=== PATIENT | female | born 1980 | race Caucasian/White ===

== ENCOUNTER 2019-11-12 14:14 | Emergency (ER) | payer MEDICARE, MEDICAID, SELFPAY ==
--- NOTE | 2019-11-12 14:46 | US_ITS ---
WS: [id number] LIMITED OBSTETRICAL ULTRASOUND HISTORY: abd pain COMPARISON: 09/19/2019 Presentation: Variable. Cervix: Closed and normal length. Placenta: Posterior, no previa or abruption. There is a bandlike structure necrosis superior LEFT ges tational sac. No entrapment of limbs at this time. Grade: 0 HEART: FHR of 157 BPM. measurements: BPD = 4.1 cm = 18w3d HC = 15.4 cm = 18w3d AC = 13.0 cm = 18w4d FL = 2.8 cm = 18w4d EFW: 246 g; AGA by ultrasound: 18w4d ANTHONY by ultrasound: 04/10/2020 US/US OB <=14 wk fetus w transvag IMPRESSION: 1. Single intrauterine gestation of 18 weeks 4 days with an EDC of 04/10/2020. 2. Appropriate growth since 09/19/2019. 3. Amniotic band in the superior LEFT gestational sac.
[2019-11-12 14:48] VITALS: BP 123/63; PULSE 80; RESP 18; TEMP 37.2; O2SAT 97; BMI 24.1
[2019-11-12 15:37] LABS: Add Urine Microscopic? NO
[2019-11-12 15:52] LABS: Bilirubin Urine Neg (NEGATIVE); Blood Urine Neg (Negative); Glucose Urine UA Norm (Normal); Ketones Urine Negative (Negative); Leukocyte Esterase Urine Negative (Negative); Nitrate Urine Negative (Negative); Protein Urine Neg (Negative); Specific Gravity, Urine 1.005 (1.005-1.030); Urine Appearance Clear (CLEAR); Urine Color Straw (Yellow); Urobilinogen Urine Norm (Negative)
--- NOTE | 2019-11-12 16:27 | ED_ITS ---
Entered by Rob Hardy, acting as scribe for Nov 12, 2019 14:14 HPI - Abdominal Pain General: Chief Complaint: Abdominal Pain Stated Complaint: 18 weeks preg lost one twin already. Time Seen by Provider: 11/12/19 16:27 History of Present Illness: HPI narrative: 39 yo female presents with abd pain. Pt states that she is 18 weeks , she has already lost 1 of the twins. Pt states that she had a cervical biopsy done 1 week ago, miscarried one of the twins 2 days ago. Pt states that she feels constipated. Pt states that she is scared to use the restroom for fear of miscarrying the other baby. Pt states that her OBGYN sent the baby off for pathology. Pt denies vaginal bleeding. Pt states that she tried to have a bowel movement last night and noticed a lot of white mucous. MD elicited complaint: abdominal pain Associated Symptoms: Denies chills, coffee ground emesis, constipation, GI cramping, diarrhea, dysuria, fever(s), heartburn, hematochezia, hematuria, hematemesis, melena, nausea, syncope and vomiting Review of Systems Const: Denies: fever, chills, body aches, fatigue, malaise or night sweats Eyes: Denies: change in vision or blurry vision ENMT: Denies: throat pain, oral sores/lesions, dental pain, nasal discharge or nasal congestion Card: Denies: chest pain, palpitations, irregular heart rhythm, edema, syncope, shortness of breath on exertion, shortness of breath when lying down or leg pain with exertion Resp: Denies: shortness of breath, productive cough, non-productive cough or wheezing GI: Reports: abdominal pain; Denies: nausea, vomiting, vomiting blood, coffee grounds in vomit, difficulty swallowing, heartburn/indigestion, diarrhea, constipation, cramping, blood in stool or black tarry stool : Denies: flank pain, painful urination, urinary frequency, urinary urgency, urinary incontinence, blood in urine, genital lesion, genital itching, vaginal odor, vaginal bleeding, vaginal discharge or pelvic pain Musc: Denies: neck pain, back pain, extremity pain, extremity swelling, joint pain or joint swelling Skin/Breast: Denies: rash, itching or redness Neuro: Denies: headache, numbness in extremities, weakness in extremities, changes in sensation, lack of coordination, difficulty walking, frequent falls, dizziness, vertigo or confusion Psych: Denies: anxiety, depression, loss of interest, visual hallucinations, auditory hallucinations, suicidal ideation or homicidal ideation Endo: Denies: excessive urination, excessive thirst, tired all the time or cold intolerance Elie/Lymph: Denies: easy bruising, easy bleeding, petechiae, enlarged lymph nodes or tender lymph nodes PFSH ED PFSH: Statuses (acute, chronic, etc) shown below reflect problem list status as previously entered and may not be historically accurate Medical History Anxiety (Acute) Arthritis (Acute) Depression (Acute) Hypokalemia (Acute) MRSA (methicillin resistant staph aureus) culture positive (Acute) Social History Smoking and tobacco status: current every day smoker Physical Exam Const: COMMON NORMALS: average body habitus, oriented x3 and alert GENERAL APPEARANCE: cooperative, comfortable, well kempt and well developed NUTRITIONAL APPEARANCE: not obese ORIENTATION/CONSCIOUSNESS: Yes awake, Yes oriented to person and Yes oriented to place HENMT: COMMON NORMALS: normocephalic, head/scalp atraumatic, EAC's normal, TM's normal bilaterally, external nose normal, moist oral mucous membranes and oropharynx normal HEAD & SCALP: normocephalic and atraumatic NOSE: external nose normal EXTERNAL AUDITORY CANAL: EAC's normal TYMPANIC MEMBRANE: TM's normal bilaterally MOUTH: oral and palatal mucosa normal, lip normal and tongue normal THROAT: posterior oropharynx normal and tonsils normal Eye: COMMON NORMALS: PERRL, EOMs intact bilaterally, conjunctivae normal and no scleral icterus CONJUNCTIVA: Yes conjunctivae normal PUPIL: Yes PERRL Neck/C-Spine: COMMON NORMALS: full ROM, no lymphadenopathy, supple, no meningeal signs and thyroid normal THYROID: thyroid normal and asymmetrical Lymph: LYMPHATIC: no lymphadenopathy noted Resp: COMMON NORMALS: normal respiratory effort, no retractions, no use of accessory muscles and clear to auscultation bilaterally AUSCULTATION: clear to auscultation bilaterally Cardio: COMMON NORMALS: regular rate and regular rhythm RATE: regular rate RHYTHM: regular rhythm HEART SOUNDS: no murmurs GI: COMMON NORMALS: normal to inspection, nondistended, normoactive bowel sounds, soft to palpation and no hepatosplenomegaly PALPATION: Yes soft and Yes no hepatosplenomegaly : COMMON NORMALS: Yes no CVA tenderness BLADDER/KIDNEY EXAM: Yes no CVA tenderness Back/Pelvis: COMMON NORMALS: no CVA tenderness LUMBAR SPINE/LOWER BACK: Yes normal to inspection Extremity: COMMON NORMALS: no clubbing, cyanosis or edema, no calf tenderness and no pedal edema Neuro: COMMON NORMALS: oriented x3 SENSORIUM/ORIENTATION: Yes alert, Yes oriented to person and Yes oriented to place MENINGEAL SIGNS: Yes no meningeal signs Psych: APPEARANCE: Yes well kempt Skin: COMMON NORMALS: no rashes or lesions noted and skin turgor normal GENERAL SKIN EXAM: no rashes or lesions noted and turgor normal Course ED course: Patient had ultrasound on 09/20/2019 that showed a mobley she states last week she miscarried 1 baby of twins radiographically that does not fit with what we are seeing on the previous ultrasound. Her beta- hCG is normal she is not having any vaginal bleeding or discharge urine is normal. I suspect some is just round ligament pain discomfort of some of it may be constipation encouraged her to follow-up with her OB. At this time there is no emergent condition apparent Vital Signs: Vital signs: Vital Signs Temperature 98.9 F 11/12/19 14:48 Pulse Rate 72 11/12/19 17:15 Respiratory Rate 18 11/12/19 17:15 Blood Pressure 117/65 11/12/19 17:15 Pulse Oximetry 99 11/12/19 17:15 MDM - Abdominal Pain Lab Data: Attestation: I reviewed the patient's lab results. Labs: Lab Results 11/12/19 11/12/19 Range/Units 15:13 15:50 Ser , Angle i-Qnt 96336.00 mIU/mL Urine Color Straw (Yellow) Urine Appearance Clear (CLEAR) Urine pH 7.0 (5-7) Ur Specific Gravit y 1.005 (1.005-1.030) Urine Protein Neg (Negative) Urine Glucose (UA) Norm (Normal) Urine Ketones Negative (Negative) Urine Occult Blood Neg (Negative) Urine Nitrate Negative (Negative) Urine Bilirubin Neg (NEGATIVE) Urine Urobilinogen Norm (Negative) mg/dL Ur Leukocyte Shauna ase Negative (Negative) Imaging Data ^: US OB: Radiologist's impression: LIMITED OBSTETRICAL ULTRASOUND HISTORY: abd pain COMPARISON: 09/19/2019 Presentation: Variable. Cervix: Closed and normal length. Placenta: Posterior, no previa or abruption. There is a bandlike structure necrosis superior LEFT gestational sac. No entrapment of limbs at this time. Grade: 0 HEART: FHR of 157 BPM. measurements: BPD = 4.1 cm = 18w3d HC = 15.4 cm = 18w3d AC = 13.0 cm = 18w4d FL = 2.8 cm = 18w4d EFW: 246 g; AGA by ultrasound: 18w4d ANTHONY by ultrasound: 04/10/2020 US/US OB <=14 wk fetus w transvag IMPRESSION: 1. Single intrauterine gestation of 18 weeks 4 days with an EDC of 04/10/2020. 2. Appropriate growth since 09/19/2019. 3. Amniotic band in the superior LEFT gestational sac. Dictated By:Nancy Baig DO Discharge Plan Discharge Patient Disposition: Home, Self-Care Clinical Impression: 18 weeks gestation of , Constipation Condition: Stable Prescriptions: No Action Senna Lax 8.6 mg Tablet 8.6 mg PO QPM RF: 0 clonazepam 0.5 mg Tablet 0.5 mg PO BID RF: 0 docusate sodium 100 mg Tablet 200 mg PO QPM RF: 0 aripiprazole 10 mg Tablet 10 mg PO QPM RF: 0 Prenatabs Rx 29 mg iron- 1 mg Tablet 1 tab PO QPM RF: 0 duloxetine 60 mg Capsule, Delayed Rel Sprinkle 60 mg PO DAILY RF: 0 Discharge Orders: Discharge Order (Routine); Ordered 11/12/19 Ordered By: Sae Gomez Referrals: Lori Loya DO [Primary Care Provider] - Discharge Diet: Usual diet Discharge Activity: Resume usual activity Activity Restrictions/Additional Instructions: Follow-up with your OB doctor as scheduled. Discharge Date/Time: 11/12/19 17:17 Coding Level of Care Code ED Trials Manager for Chg Fwd Exam Problem Focused The documentation recorded by the Antony hebert Kialy, accurately reflects the service I personally performed and the decisions made by Jason downing Curtis L, DO Nov 12, 2019 14:14
[2019-11-12 17:15] VITALS: BP 117/65; PULSE 72; RESP 18; O2SAT 99
== END 2019-11-12 17:17 | disposition home or self-care (01) ==
PROVIDERS: Emergency Medicine; Emergency Provider Family Medicine; Family Provider Family Medicine; PCP Family Medicine
DX: O26.892 Other specified pregnancy related conditions, second trimester (principal); K59.00 Constipation, unspecified; Z3A.18 18 weeks gestation of pregnancy; O99.332 Smoking (tobacco) complicating pregnancy, second trimester; F17.210 Nicotine dependence, cigarettes, uncomplicated
CPT/HCPCS: 36415; 76801; 76817; 81003; 84702; 99282; A9270

== ENCOUNTER 2019-11-14 17:30 | Emergency (ER) | payer MEDICARE, MEDICAID, SELFPAY ==
[2019-11-14 17:31] VITALS: BP 117/63; PULSE 85; RESP 16; O2SAT 100; BMI 24.1
--- NOTE | 2019-11-14 17:37 | ED_ITS ---
Entered by Rob Hardy, acting as scribe for Ingrid Barnett Nov 14, 2019 17:30 Documented by User: Ingrid Barnett 11/14/19 18:01 HPI - Abdominal Pain General: Chief Complaint: Abdominal Pain Stated Complaint: ABD PAIN Time Seen by Provider: 11/14/19 17:48 History of Present Illness: HPI narrative: 39 yo female presents with abd pain. Pt was seen here [place] for similar symptoms, she was diagnosed with constipation. Pt states that she still has abdomen pain and hasn't had a bowel movement. MD elicited complaint: abdominal pain Pertinent past history: constipation Onset (ago): day(s) Severity: mild Quality: cramping Radiation: none Migration to: no migration Exacerbating factors: nothing Relieving factors: nothing Associated Symptoms: Denies chills, coffee ground emesis, constipation, GI cramping, diarrhea, dysuria, fever(s), hematochezia, hematuria, hematemesis, melena, nausea, syncope and vomiting Review of Systems General: Reports: other (negative unless marked) Const: Denies: fever, chills, body aches, fatigue, malaise or diaphoresis Eyes: Denies: change in vision or blurry vision ENMT: Denies: throat pain, painful swallowing, hoarseness, ear pain, ear discharge, Change in hearing or nasal discharge Card: Denies: chest pain, palpitations, irregular heart rhythm, syncope, pre- syncope, shortness of breath on exertion or shortness of breath when lying down Resp: Denies: shortness of breath, productive cough, non-productive cough, wheezing, coughing up blood or chest congestion GI: Denies: abdominal pain, nausea, vomiting, vomiting blood, coffee grounds in vomit, diarrhea, constipation, cramping, blood in stool or black tarry stool : Denies: flank pain, painful urination, urinary frequency, urinary urgency, decreased urine ouput, urinary incontinence or blood in urine Musc: Denies: neck pain, back pain, extremity pain, extremity swelling, joint pain, joint swelling, joint warmth or joint stiffness Skin/Breast: Denies: rash, skin tenderness or yellow skin Neuro: Denies: headache, numbness in extremities, weakness in extremities, changes in sensation, lack of coordination, difficulty walking, dizziness, vertigo or confusion Endo: Denies: excessive thirst, tired all the time, cold intolerance, excessive sweating, flushing or hot flashes Elie/Lymph: Denies: easy bruising, easy bleeding, petechiae or enlarged lymph nodes All/Imm: Denies: hives, throat swelling, tongue swelling, facial swelling or acute wheezing PFSH ED PFSH: Statuses (acute, chronic, etc) shown below reflect problem list status as previously entered and may not be historically accurate Medical History Anxiety (Acute) Arthritis (Acute) Depression (Acute) Hypokalemia (Acute) MRSA (methicillin resistant staph aureus) culture positive (Acute) Social History Smoking and tobacco status: current every day smoker Physical Exam Const: COMMON NORMALS: no apparent distress, oriented x3, no limitations, healthy appearing and well nourished EXAM LIMITATIONS: no altered mental status GENERAL APPEARANCE: cooperative, well kempt and well developed ORIENTATION/CONSCIOUSNESS: Yes awake HENMT: COMMON NORMALS: normocephalic, head/scalp atraumatic, hearing grossly normal bilaterally, external ears normal, EAC's normal, external nose normal and moist oral mucous membranes HEAD & SCALP: normal to inspection, normocephalic and atraumatic FACE & SINUS: normal facial exam and face symmetric NOSE: external nose normal and nares normal EXTERNAL EAR: Yes external ears normal EXTERNAL AUDITORY CANAL: EAC's normal MOUTH: oral and palatal mucosa normal and tongue normal Eye: COMMON NORMALS: PERRL, EOMs intact bilaterally, conjunctivae normal and no scleral icterus GENERAL EYE: normal appearance of both eyes and normal light reflex CONJUNCTIVA: Yes conjunctivae normal SCLERA: sclerae normal CORNEA: Yes corneas normal PUPIL: Yes PERRL DIRECT OPHTHALMOSCOPY: Yes normal light reflex Neck/C-Spine: COMMON NORMALS: full ROM, no lymphadenopathy, supple, no meningeal signs and no JVD GENERAL: Yes normal visual inspection and Yes trachea midline CERVICAL SPINE: Yes cervical ROM normal Chest: COMMONS NORMALS: inspection of chest normal and palpation of chest normal Resp: COMMON NORMALS: normal respiratory effort, no retractions, no use of accessory muscles and clear to auscultation bilaterally EFFORT & INSPECTION: Yes able to speak in complete sentences AUSCULTATION: clear to auscultation bilaterally Cardio: COMMON NORMALS: no JVD, regular rate, regular rhythm, S1 normal heart sound, S2 normal heart sound, no gallops, no clicks, no murmurs and no rub JUGULAR VENOUS DISTENTION: no JVD RATE: regular rate RHYTHM: regular rhythm HEART SOUNDS: S1 normal and S2 normal GI: COMMON NORMALS: soft to palpation, non-tender, no hepatosplenomegaly and no masses INSPECTION: Yes normal to inspection, Yes gravid abdomen and Yes other PALPATION: Yes soft and Yes no hepatosplenomegaly : COMMON NORMALS: Yes no CVA tenderness BLADDER/KIDNEY EXAM: Yes no CVA tenderness Back/Pelvis: COMMON NORMALS: no CVA tenderness, thoracic and lumbar spine normal to inspection, no thoracic nor lumbar tenderness and thoraco-lumbar ROM normal Extremity: COMMON NORMALS: normal to inspection, full ROM, normal capillary refill, no joint enlargement, no clubbing, cyanosis or edema and no calf tenderness Neuro: COMMON NORMALS: oriented x3, CN's II-XII intact bilaterally, moves all extremities, no focal motor deficits and no sensory deficits noted MENINGEAL SIGNS: Yes no meningeal signs Psych: COMMON NORMALS: mental status grossly normal, thought process normal, cooperative, affect normal, speech normal and activity/motor behavior normal APPEARANCE: Yes well kempt SPEECH: Yes normal speech THOUGHT PROCESS: normal thought process Skin: COMMON NORMALS: no rashes or lesions noted, skin turgor normal, no jaundice, no petechiae and no mottling GENERAL SKIN EXAM: no rashes or lesions noted and turgor normal Course Vital Signs: Vital signs: Vital Signs Pulse Rate 84 11/14/19 20:42 Respiratory Rate 16 11/14/19 20:42 Blood Pressure 107/57 11/14/19 20:42 Pulse Oximetry 94 11/14/19 20:42 MDM - Abdominal Pain MDM Narrative: Medical decision making narrative: Patient comes in complaining of abdominal pain and believes she may have passed embryo. She has no vaginal bleeding. We will go and begin with ultrasounds of report from there. Case turned over to Dr. Nixon at change of shift. Lab Data: Labs: Lab Results 11/14/19 11/14/19 11/14/19 Range/Units 17:44 17:44 17:44 WBC 8.5 (4.0-10.0) 10^3/ uL RBC 4.07 L (4.1-5.3) 10^6/u L Hgb 11.5 (11.5-15.3) g/dL Hct 34.0 L (37.0-47.0) % MCV 83.5 (81-99) fL MCH 28.3 (28.0-34.0) pg MCHC 33.8 (30.0-36.0) g/dL RDW 13.6 (12.1-15.1) % Plt Count 220 (130-400) 10^3/c mm MPV 9.3 (7.4-10.4) fL Neut % (Auto) 63.0 % Lymph % (Auto) 30.7 % Person % (Auto) 4.2 % Eos % (Auto) 1.2 % Baso % (Auto) 0.5 % Neut # (Auto) 5.4 (1.8-7.7) 10^3/u L Lymph # (Auto) 2.6 (0.8-4.8) 10^3/u L Person # (Auto) 0.4 (0.2-0.9) 10^3/u L Eos # (Auto) 0.1 (0.0-0.8) 10^3/u L Baso # (Auto) 0.0 (0.0-0.1) 10^3/u L Nucleated RBC % (a uto) 0 % Nucleated RBCs # 0.0 /100WBC Sodium 136 (136-145) mmol/L Potassium 3.5 (3.5-5.1) mmol/L Chloride 99 (98-107) mmol/L Carbon Dioxide 25 (22-29) mmol/L Anion Gap 15.5 (5-19) BUN 7 (6-20) mg/dL Creatinine 0.5 (0.5-0.9) mg/dL GFR Calculation 138.8 H (90-130) mL/min Glucose 91 (74-109) mg/dL Calcium 9.3 (8.5-10.5) mg/dL Total Bilirubin 0.2 (0.15-1.2) mg/dL AST 18 (0-32) U/L ALT 29 (0-33) U/L Alkaline Phosphata se 111 H (35-105) IU/L Total Protein 6.9 (6.6-8.7) g/dL Albumin 3.8 (3.5-5.2) g/dL Globulin 3.1 (1.3-4.6) g/dL Lipase 13 (13-60) U/L Ser , [place] 82609.00 mIU/mL Urine Color (Yellow) Urine Appearance (CLEAR) Urine pH (5-7) Ur Specific Gravit y (1.005-1.030) Urine Protein (Negative) Urine Glucose (UA) (Normal) Urine Ketones (Negative) Urine Occult Blood (Negative) Urine Nitrate (Negative) Urine Bilirubin (NEGATIVE) Urine Urobilinogen (Negative) mg/dL Ur Leukocyte Shauna ase (Negative) Urine RBC (0-2) /hpf Urine WBC (0-5) /hpf Ur Squamous Epith Cells (0-5) Urine Bacteria (NONE) Blood Type A Positive 11/14/19 Range/Units 18:55 WBC (4.0-10.0) 10^3/ uL RBC (4.1-5.3) 10^6/u L Hgb (11.5-15.3) g/dL Hct (37.0-47.0) % MCV (81-99) fL MCH (28.0-34.0) pg MCHC (30.0-36.0) g/dL RDW (12.1-15.1) % Plt Count (130-400) 10^3/c mm MPV (7.4-10.4) fL Neut % (Auto) % Lymph % (Auto) % Person % (Auto) % Eos % (Auto) % Baso % (Auto) % Neut # (Auto) (1.8-7.7) 10^3/u L Lymph # (Auto) (0.8-4.8) 10^3/u L Person # (Auto) (0.2-0.9) 10^3/u L Eos # (Auto) (0.0-0.8) 10^3/u L Baso # (Auto) (0.0-0.1) 10^3/u L Nucleated RBC % (a uto) % Nucleated RBCs # /100WBC Sodium (136-145) mmol/L Potassium (3.5-5.1) mmol/L Chloride (98-107) mmol/L Carbon Dioxide (22-29) mmol/L Anion Gap (5-19) BUN (6-20) mg/dL Creatinine (0.5-0.9) mg/dL GFR Calculation (90-130) mL/min Glucose (74-109) mg/dL Calcium (8.5-10.5) mg/dL Total Bilirubin (0.15-1.2) mg/dL AST (0-32) U/L ALT (0-33) U/L Alkaline Phosphata se (35-105) IU/L Total Protein (6.6-8.7) g/dL Albumin (3.5-5.2) g/dL Globulin (1.3-4.6) g/dL Lipase (13-60) U/L Ser , Angle i-Qnt mIU/mL Urine Color Straw (Yellow) Urine Appearance Clear (CLEAR) Urine pH 7 (5-7) Ur Specific Gravit y 1.010 (1.005-1.030) Urine Protein Neg (Negative) Urine Glucose (UA) Norm (Normal) Urine Ketones Negative (Negative) Urine Occult Blood Neg (Negative) Urine Nitrate Negative (Negative) Urine Bilirubin Neg (NEGATIVE) Urine Urobilinogen Norm (Negative) mg/dL Ur Leukocyte Shauna ase Negative (Negative) Urine RBC Rare (0-2) /hpf Urine WBC Rare (0-5) /hpf Ur Squamous Epith Cells Rare (0-5) Urine Bacteria Trace (NONE) Blood Type Discharge Plan Discharge Patient Disposition: Home, Self-Care Clinical Impression: Constipation Qualifiers: Constipation type: unspecified constipation type Qualified Code(s): K59.00 - Constipation, unspecified Qualifiers: Weeks of gestation: 19 weeks Qualified Code(s): Z3A.19 - 19 weeks gestation of Condition: Stable Prescriptions: No Action Senna Lax 8.6 mg Tablet 8.6 mg PO QPM RF: 0 clonazepam 0.5 mg Tablet 0.5 mg PO BID RF: 0 docusate sodium 100 mg Tablet 200 mg PO QPM RF: 0 aripiprazole 10 mg Tablet 10 mg PO QPM RF: 0 Prenatabs Rx 29 mg iron- 1 mg Tablet 1 tab PO QPM RF: 0 duloxetine 60 mg Capsule, Delayed Rel Sprinkle 60 mg PO DAILY RF: 0 Discharge Orders: Discharge Order (Routine); Ordered 11/14/19 Ordered By: Kendrick Nixon Referrals: Lori Loya DO [Primary Care Provider] - 4-7 days Discharge Diet: Advance as tolerated Discharge Activity: Increase activity as tolerated Activity Restrictions/Additional Instructions: Return for brisk vaginal bleeding, fever greater than 100, vomiting liquids or m edications, other concerning symptoms. Take the medication you were dispensed as prescribed for the constipation. Discharge Date/Time: 11/14/19 20:44 Sign Out Sign Out Data: Patient Sign Out occurred on 11/14/19 at 18:29. Patient's care was discussed, and care was transferred from to Kendrick Nixon DO. Coding Level of Care Code ED Cogn[employer] Report Developer for Chg Fwd Exam Problem Focused Documented by User: Kendrick Nixon DO 11/15/19 04:17 HPI - Abdominal Pain General: Chief Complaint: Abdominal Pain Stated Complaint: ABD PAIN Time Seen by Provider: 11/14/19 17:48 PFSH ED PFSH: Statuses (acute, chronic, etc) shown below reflect problem list status as previously entered and may not be historically accurate Medical History Anxiety (Acute) Arthritis (Acute) Depression (Acute) Hypokalemia (Acute) MRSA (methicillin resistant staph aureus) culture positive (Acute) Social History Smoking and tobacco status: current every day smoker Course ED course: 39-year-old female received in checkout from Dr. Goyal. She complains of abdominal tightness. She has been constipated. Stool softeners have not helped. Her ultrasound is stable from Friday. Her labs are benign. She is given magnesium citrate and discharged home Vital Signs: Vital signs: Vital Signs Pulse Rate 84 11/14/19 20:42 Respiratory Rate 16 11/14/19 20:42 Blood Pressure 107/57 01/26/20 20:42 Pulse Oximetry 94 11/14/19 20:42 MDM - Abdominal Pain Lab Data: Labs: Lab Results 11/14/19 11/14/19 11/14/19 Range/Units 17:44 17:44 17:44 WBC 8.5 (4.0-10.0) 10^3/ uL RBC 4.07 L (4.1-5.3) 10^6/u L Hgb 11.5 (11.5-15.3) g/dL Hct 34.0 L (37.0-47.0) % MCV 83.5 (81-99) fL MCH 28.3 (28.0-34.0) pg MCHC 33.8 (30.0-36.0) g/dL RDW 13.6 (12.1-15.1) % Plt Count 220 (130-400) 10^3/c mm MPV 9.3 (7.4-10.4) fL Neut % (Auto) 63.0 % Lymph % (Auto) 30.7 % Person % (Auto) 4.2 % Eos % (Auto) 1.2 % Baso % (Auto) 0.5 % Neut # (Auto) 5.4 (1.8-7.7) 10^3/u L Lymph # (Auto) 2.6 (0.8-4.8) 10^3/u L Person # (Auto) 0.4 (0.2-0.9) 10^3/u L Eos # (Auto) 0.1 (0.0-0.8) 10^3/u L Baso # (Auto) 0.0 (0.0-0.1) 10^3/u L Nucleated RBC % (a uto) 0 % Nucleated RBCs # 0.0 /100WBC Sodium 136 (136-145) mmol/L Potassium 3.5 (3.5-5.1) mmol/L Chloride 99 (98-107) mmol/L Carbon Dioxide 25 (22-29) mmol/L Anion Gap 15.5 (5-19) BUN 7 (6-20) mg/dL Creatinine 0.5 (0.5-0.9) mg/dL GFR Calculation 138.8 H (90-130) mL/min Glucose 91 (74-109) mg/dL Calcium 9.3 (8.5-10.5) mg/dL Total Bilirubin 0.2 (0.15-1.2) mg/dL AST 18 (0-32) U/L ALT 29 (0-33) U/L Alkaline Phosphata se 111 H (35-105) IU/L Total Protein 6.9 (6.6-8.7) g/dL Albumin 3.8 (3.5-5.2) g/dL Globulin 3.1 (1.3-4.6) g/dL Lipase 13 (13-60) U/L Ser , [place]Qnt 95064.00 mIU/mL Urine Color (Yellow) Urine Appearance (CLEAR) Urine pH (5-7) Ur Specific Gravit y (1.005-1.030) Urine Protein (Negative) Urine Glucose (UA) (Normal) Urine Ketones (Negative) Urine Occult Blood (Negative) Urine Nitrate (Negative) Urine Bilirubin (NEGATIVE) Urine Urobilinogen (Negative) mg/dL Ur Leukocyte Shauna ase (Negative) Urine RBC (0-2) /hpf Urine WBC (0-5) /hpf Ur Squamous Epith Cells (0-5) Urine Bacteria (NONE) Blood Type A Positive 11/14/19 Range/Units 18:55 WBC (4.0-10.0) 10^3/ uL RBC (4.1-5.3) 10^6/u L Hgb (11.5-15.3) g/dL Hct (37.0-47.0) % MCV (81-99) fL MCH (28.0-34.0) pg MCHC (30.0-36.0) g/dL RDW (12.1-15.1) % Plt Count (130-400) 10^3/c mm MPV (7.4-10.4) fL Neut % (Auto) % Lymph % (Auto) % Person % (Auto) % Eos % (Auto) % Baso % (Auto) % Neut # (Auto) (1.8-7.7) 10^3/u L Lymph # (Auto) (0.8-4.8) 10^3/u L Person # (Auto) (0.2-0.9) 10^3/u L Eos # (Auto) (0.0-0.8) 10^3/u L Baso # (Auto) (0.0-0.1) 10^3/u L Nucleated RBC % (a uto) % Nucleated RBCs # /100WBC Sodium (136-145) mmol/L Potassium (3.5-5.1) mmol/L Chloride (98-107) mmol/L Carbon Dioxide (22-29) mmol/L Anion Gap (5-19) BUN (6-20) mg/dL Creatinine (0.5-0.9) mg/dL GFR Calculation (90-130) mL/min Glucose (74-109) mg/dL Calcium (8.5-10.5) mg/dL Total Bilirubin (0.15-1.2) mg/dL AST (0-32) U/L ALT (0-33) U/L Alkaline Phosphata se (35-105) IU/L Total Protein (6.6-8.7) g/dL Albumin (3.5-5.2) g/dL Globulin (1.3-4.6) g/dL Lipase (13-60) U/L Ser , Angle i-Qnt mIU/mL Urine Color Straw (Yellow) Urine Appearance Clear (CLEAR) Urine pH 7 (5-7) Ur Specific Gravit y 1.010 (1.005-1.030) Urine Protein Neg (Negative) Urine Glucose (UA) Norm (Normal) Urine Ketones Negative (Negative) Urine Occult Blood Neg (Negative) Urine Nitrate Negative (Negative) Urine Bilirubin Neg (NEGATIVE) Urine Urobilinogen Norm (Negative) mg/dL Ur Leukocyte Shauna ase Negative (Negative) Urine RBC Rare (0-2) /hpf Urine WBC Rare (0-5) /hpf Ur Squamous Epith Cells Rare (0-5) Urine Bacteria Trace (NONE) Blood Type Discharge Plan Discharge Patient Disposition: Home, Self-Care Clinical Impression: Constipation Qualifiers: Constipation type: unspecified constipation type Qualified Code(s): K59.00 - Constipation, unspecified Qualifiers: Weeks of gestation: 19 weeks Qualified Code(s): Z3A.19 - 19 weeks gestation of Condition: Stable Prescriptions: No Action Senna Lax 8.6 mg Tablet 8.6 mg PO QPM RF: 0 clonazepam 0.5 mg Tablet 0.5 mg PO BID RF: 0 docusate sodium 100 mg Tablet 200 mg PO QPM RF: 0 aripiprazole 10 mg Tablet 10 mg PO QPM RF: 0 Prenatabs Rx 29 mg iron- 1 mg Tablet 1 tab PO QPM RF: 0 duloxetine 60 mg Capsule, Delayed Rel Sprinkle 60 mg PO DAILY RF: 0 Discharge Orders: Discharge Order (Routine); Ordered 11/14/19 Ordered By: Kendrick Nixon Referrals: Lori Loya DO [Primary Care Provider] - 4-7 days Discharge Diet: Advance as tolerated Discharge Activity: Increase activity as tolerated Activity Restrictions/Additional Instructions: Return for brisk vaginal bleeding, fever greater than 100, vomiting liquids or medications, other concerning symptoms. Take the medication you were dispensed as prescribed for the constipation. Discharge Date/Time: 11/14/19 20:44 Sign Out Sign Out Data: Patient Sign Out occurred on 11/14/19 at 18:29. Patient's care was discussed, and care was transferred from to Kendrick Nixon DO. Coding Level of Care Code ED Cognos Report Developer for Chg Fwd Exam Problem Focused The documentation recorded by the Antony hebert Kialy, accurately reflects the service I personally performed and the decisions made by Anibal downing Eli N Nov 14, 2019 17:30
--- NOTE | 2019-11-14 17:37 | USR_ITS ---
PROCEDURE INFORMATION: Exam: US , Limited Exam date and time: 11/14/2019 5:59 PM Age: 39 years old Clinical indication: complicated by abdominal or pelvic pain; Generalized abdominal pain; Second trimester; Gestational age or lmp: By US 19w 0d per patient 17w 5d; TECHNIQUE: Imaging protocol: Real-time ultrasound of the maternal uterus with image documentation. Exam focused on the clinical indication. COMPARISON: US OB <=14 wk fetus w transvag 11/12/2019 2:59 PM FINDINGS: GESTATION: Gestation: Intrauterine gestation. Heart rate: heart rate is 153 bpm. Placenta: Placenta previa. Placenta is posterior. Amniotic fluid: TONE is within normal limits. There is an amniotic band. BIOMETRY: Estimated gestational age: Estimated gestational age by ultrasound is 19 weeks and 0 days. Estimated due date: Estimated due date by ultrasound is 04/09/2020. Estimated weight: Estimated weight is 268 g. Biparietal diameter: BPD is 4.3 cm. Head circumference: Head circumference is 16.0 centimetres. Abdominal circumference: Abdominal circumference is 13.7 cm. Femur length: Femur length is 2.9 centimetres. MATERNAL: Cervix: Cervical length is normal at 5.3 centimetres. US/US OB limited [id number] IMPRESSION: 1. Single live intrauterine fetus. Estimated gestational age by ultrasound is 19 weeks and 0 days. 2. Placenta previa.
--- NOTE | 2019-11-14 17:38 | US_ITS ---
WS: [id number] Complete ABDOMINAL ULTRASOUND HISTORY: Abdominal Pain COMPARISON: None available. Liver: 14.8 cm in length. Liver is normal size and echogenicity with no mass or intrahepatic dilatati on. Mild portal vein enlargement. Gallbladder: Normally distended with no gallstones, wall thickening or pericholecystic fluid. Gallbladder wall thickness: 0.2 mm. Pancreas: Poorly visualized pancreas. Head and tail are not well seen. CBD: 0.5 mm. Right kidney: 10.1 cm x 4.8 cm x 4.4 cm. No mass, cortical thickening or hydronephrosis. Left kidney: 11.0 cm x 4.8 cm x 4.7 cm. No mass, cortical thickening or hydronephrosis. Spleen: Spleen is moderately enlarged measuring over 14.4 cm in length. Abdominal aorta and IVC are within normal limits. No ascites. US/US abdomen complete* [id number] IMPRESSION: 1. Moderate splenomegaly of undetermined etiology. 2. Normal gallbladder. 3. Mild portal vein enlargement.
[2019-11-14] MEDS: sodium chloride 0.9% 1,000 ML 100 ML IV (18:01)
[2019-11-14 18:03] LABS: Basophils % 0.5 %; Eosinophils # 0.1 10^3/uL (0.0-0.8); Eosinophils % 1.2 %; Hemoglobin 11.5 g/dL (11.5-15.3); Lymphocytes # 2.6 10^3/uL (0.8-4.8); Lymphocytes % 30.7 %; Mean Corpuscular HGB Conc 33.8 g/dL (30.0-36.0); Mean Corpuscular Hemoglobin 28.3 pg (28.0-34.0); Mean Corpuscular Volume 83.5 fL (81-99); Mean Platelet Volume 9.3 fL (7.4-10.4); Monocytes # 0.4 10^3/uL (0.2-0.9); Monocytes % 4.2 %; Neutrophils # 5.4 10^3/uL (1.8-7.7); Nucleated Red Blood Cells % 0 %; Platelet Count 220 10^3/cmm (130-400); Red Blood Count 4.07 10^6/uL (4.1-5.3); Red Cell Distribution Width 13.6 % (12.1-15.1); White Blood Count 8.5 10^3/uL (4.0-10.0)
--- NOTE | 2019-11-14 18:03 | PC.NURSE ---
Ultrasound at bedside.
[2019-11-14 18:20] LABS: Alanine Aminotransferase 29 U/L (0-33); Albumin Level 3.8 g/dL (3.5-5.2); Alkaline Phosphatase 111 IU/L (35-105); Anion Gap 15.5 (5-19); Aspartate Amino Transferase 18 U/L (0-32); Blood Urea Nitrogen 7 mg/dL (6-20); Calcium 9.3 mg/dL (8.5-10.5); Carbon Dioxide 25 mmol/L (22-29); Chloride 99 mmol/L (98-107); Globulin 3.1 g/dL (1.3-4.6); Glomerular Filtration Rate 138.8 mL/min (90-130); Glucose 91 mg/dL (74-109); Lipase 13 U/L (13-60); Potassium 3.5 mmol/L (3.5-5.1); Sodium 136 mmol/L (136-145); Total Bilirubin 0.2 mg/dL (0.15-1.2); Total Protein 6.9 g/dL (6.6-8.7)
--- NOTE | 2019-11-14 18:27 | PC.NURSE ---
Patient attempting to collect urine sample.
[2019-11-14 19:34] LABS: Bacteria Urine TRACE; Bilirubin Urine Neg (NEGATIVE); Blood Urine Neg (Negative); Glucose Urine UA Norm (Normal); Ketones Urine Negative (Negative); Leukocyte Esterase Urine Negative (Negative); Nitrate Urine Negative (Negative); Protein Urine Neg (Negative); RBC Urine RARE /hpf (0-2); Squamous Epithelial Cell Urine RARE (0-5); Urine Appearance Clear (CLEAR); Urine Color Straw (Yellow); Urobilinogen Urine Norm (Negative); WBC Urine RARE /hpf (0-5); pH Urine 7 (5-7)
[2019-11-14] MEDS: magnesium citrate Btl 296 mL PO (20:33)
[2019-11-14 20:42] VITALS: BP 107/57; PULSE 84; RESP 16; O2SAT 94
== END 2019-11-14 20:44 | disposition home or self-care (01) ==
PROVIDERS: Emergency Medicine; Emergency Provider Emergency Medicine; Family Provider Family Medicine; PCP Family Medicine
DX: O26.892 Other specified pregnancy related conditions, second trimester (principal); K59.00 Constipation, unspecified; Z3A.19 19 weeks gestation of pregnancy; O99.332 Smoking (tobacco) complicating pregnancy, second trimester; F17.210 Nicotine dependence, cigarettes, uncomplicated
CPT/HCPCS: 76700; 76801; 76815; 80053; 81001; 83690; 84702; 85025; 86900; 99281; J7030

== ENCOUNTER 2019-12-06 17:20 | Outpatient (CLI) | payer MEDICARE, MEDICAID, SELFPAY ==
[2019-12-06 17:36] VITALS: BP 101/59; BP 126/59; PULSE 112; PULSE 89; RESP 18; TEMP 36.7
[2019-12-06 17:56] VITALS: BMI 24.9
[2019-12-06 18:06] VITALS: BP 101/66; PULSE 112; RESP 18
[2019-12-06 18:07] VITALS: BP 101/66; PULSE 86
[2019-12-06 18:09] LABS: Bilirubin Urine Neg (NEGATIVE); Blood Urine Neg (Negative); Glucose Urine UA Norm (Normal); Ketones Urine Negative (Negative); Leukocyte Esterase Urine Negative (Negative); Nitrate Urine Negative (Negative); Protein Urine Neg (Negative); Specific Gravity, Urine 1.005 (1.005-1.030); Urine Appearance Clear (CLEAR); Urine Color Straw (Yellow); Urobilinogen Urine Norm (Negative); pH Urine 7 (5-7)
[2019-12-06 18:10] LABS: Add Urine Culture? No; Bacteria Urine TRACE; Squamous Epithelial Cell Urine RARE (0-5); WBC Urine RARE /hpf (0-5)
[2019-12-06 18:25] VITALS: BP 101/66; PULSE 86; RESP 18; TEMP 36.7
== END 2019-12-06 18:35 | disposition home or self-care (01) ==
PROVIDERS: Family Provider Family Medicine; PCP Family Medicine; Visit Provider Family Medicine
DX: O26.899 Other specified pregnancy related conditions, unspecified trimester (principal); Z3A.00 Weeks of gestation of pregnancy not specified; R10.2 Pelvic and perineal pain
CPT/HCPCS: 81001; 83986; 99211

== ENCOUNTER 2019-12-15 14:55 | Outpatient (CLI) | payer MEDICARE, MEDICAID, SELFPAY ==
[2019-12-15 15:00] VITALS: BMI 55.3
[2019-12-15 16:45] LABS: Glucose Urine UA Norm (Normal); Ketones Urine Negative (Negative); Protein Urine Neg (Negative); Specific Gravity, Urine 1.005 (1.005-1.030); Urine Appearance Cloudy (CLEAR); Urine Color Yellow (Yellow); pH Urine 6 (5-7)
[2019-12-15 16:46] LABS: Add Urine Culture? No; Bacteria Urine 1+; Bilirubin Urine Neg (NEGATIVE); Blood Urine Neg (Negative); Leukocyte Esterase Urine 2+ (Negative); Nitrate Urine Negative (Negative); Squamous Epithelial Cell Urine 25-40 (0-5); Urobilinogen Urine Norm (Negative); WBC Urine 25-40 /hpf (0-5)
[2019-12-15 16:55] VITALS: BP 90/51; PULSE 59; RESP 18; TEMP 36.7
== END 2019-12-15 17:05 | disposition home or self-care (01) ==
LOC: OPOB 15:23 → OBGYN 16:55 → OPOB 12-16 08:02
PROVIDERS: Family Medicine; Family Provider Family Medicine; PCP Family Medicine; Visit Provider Obstetrics & Gynecology
DX: O26.899 Other specified pregnancy related conditions, unspecified trimester (principal); Z3A.00 Weeks of gestation of pregnancy not specified; R10.9 Unspecified abdominal pain
CPT/HCPCS: 81001; 99211

== ENCOUNTER 2019-12-20 09:40 | Outpatient (CLI) | payer MEDICARE, MEDICAID, SELFPAY ==
[2019-12-20 10:00] VITALS: BP 113/66; PULSE 104; RESP 20; TEMP 36.6
[2019-12-20 10:31] VITALS: BP 104/56; PULSE 80
[2019-12-20 10:46] VITALS: BMI 25.4
--- NOTE | 2019-12-20 10:53 | PC.NURSE ---
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 ENCOURAGED HER TO RETURN OR GO SEE DR. PIERRE IF DISCHARGE CONTINUED. DID TELL PT AND HER THAT I MADE APPOINTMENT FOR HER 12/22/2019 AT 1030 AT [facility].
[2019-12-20 10:54] LABS: Nitrazine Paper, PH Negative
--- NOTE | 2019-12-20 10:57 | PC.NURSE ---
DID VITALS ON PT PRIOR TO ADMISSIONS GETTING HER INTO SYSTEM.
[2019-12-20 11:00] VITALS: BP 104/56; PULSE 80
== END 2019-12-20 10:50 | disposition home or self-care (01) ==
PROVIDERS: Family Provider Family Medicine; PCP Family Medicine; Visit Provider Family Medicine
DX: O26.899 Other specified pregnancy related conditions, unspecified trimester (principal); Z3A.00 Weeks of gestation of pregnancy not specified; N89.8 Other specified noninflammatory disorders of vagina
CPT/HCPCS: 83986; 99211

== ENCOUNTER 2020-01-09 15:20 | Outpatient (CLI) | payer MEDICARE, MEDICAID, SELFPAY ==
[2020-01-09 15:52] VITALS: TEMP 36.6
[2020-01-09 16:43] LABS: Basophils % 0.2 %; Eosinophils # 0.1 10^3/uL (0.0-0.8); Eosinophils % 0.6 %; Hematocrit 34.3 % (37.0-47.0); Hemoglobin 11.7 g/dL (11.5-15.3); Lymphocytes # 1.8 10^3/uL (0.8-4.8); Mean Corpuscular HGB Conc 34.1 g/dL (30.0-36.0); Mean Corpuscular Hemoglobin 29.5 pg (28.0-34.0); Mean Corpuscular Volume 86.6 fL (81-99); Monocytes # 0.4 10^3/uL (0.2-0.9); Monocytes % 3.8 %; Neutrophils # 7.3 10^3/uL (1.8-7.7); Nucleated Red Blood Cells % 0 %; Platelet Count 142 10^3/cmm (130-400); Red Blood Count 3.96 10^6/uL (4.1-5.3); Red Cell Distribution Width 12.5 % (12.1-15.1); White Blood Count 9.6 10^3/uL (4.0-10.0)
[2020-01-09 17:04] LABS: Alanine Aminotransferase 13 U/L (0-33); Albumin Level 3.1 g/dL (3.5-5.2); Alkaline Phosphatase 103 IU/L (35-105); Anion Gap 10.6 (5-19); Aspartate Amino Transferase 17 U/L (0-32); Blood Urea Nitrogen 5 mg/dL (6-20); Calcium 8.8 mg/dL (8.5-10.5); Carbon Dioxide 27 mmol/L (22-29); Chloride 101 mmol/L (98-107); Globulin 2.8 g/dL (1.3-4.6); Glomerular Filtration Rate 179.6 mL/min (90-130); Glucose 93 mg/dL (65-115); Osmolality Calculated 275 mOsm/kg (285-295); Potassium 3.6 mmol/L (3.5-5.1); Sodium 135 mmol/L (136-145); Total Bilirubin 0.2 mg/dL (0.15-1.2); Total Protein 5.9 g/dL (6.6-8.7)
[2020-01-09 17:22] LABS: Add Urine Microscopic? NO
[2020-01-09] MEDS: acetaminophen 500 mg Tablet 1000 MG PO (17:24)
[2020-01-09 17:35] LABS: Bilirubin Urine Neg (NEGATIVE); Blood Urine Neg (Negative); Glucose Urine UA Norm (Normal); Ketones Urine Negative (Negative); Leukocyte Esterase Urine Negative (Negative); Nitrate Urine Negative (Negative); Protein Urine Neg (Negative); Urine Appearance Clear (CLEAR); Urine Color Yellow (Yellow); Urobilinogen Urine Norm (Negative); pH Urine 7 (5-7)
[2020-01-09 17:52] LABS: Urine Creatinine 67 mg/dL (28-217); Urine Protein Random 5 mg/dL
[2020-01-09 18:03] LABS: UPRO/UCREAT Ratio 0.07 mg/mg CR
[2020-01-09 18:35] VITALS: BMI 26.6
[2020-01-09 19:19] VITALS: BP 107/57; BP 87/48; PULSE 61; PULSE 71
[2020-01-09 20:17] LABS: Nitrazine Paper, PH Negative
== END 2020-01-09 18:20 | disposition home or self-care (01) ==
LOC: OPOB 15:41 → OBGYN 18:09 → OPOB 01-10 09:30 → OBGYN 01-11 15:08
PROVIDERS: Family Provider Family Medicine; PCP Family Medicine; Visit Provider Obstetrics & Gynecology
DX: O26.899 Other specified pregnancy related conditions, unspecified trimester (principal); Z3A.00 Weeks of gestation of pregnancy not specified; R51 Headache
CPT/HCPCS: 80053; 81003; 82570; 83986; 84156; 85025; 99211

== ENCOUNTER 2020-01-11 11:27 | Outpatient (CLI) | payer MEDICARE, MEDICAID, SELFPAY ==
[2020-01-11 11:30] VITALS: BMI 26.6
[2020-01-11 11:45] VITALS: BP 116/71; PULSE 83; RESP 18; TEMP 36.9
[2020-01-11 12:45] VITALS: BP 116/71; PULSE 83; RESP 18; TEMP 36.9
[2020-01-11 18:00] LABS: Nitrazine Paper, PH Negative
== END 2020-01-11 12:45 | disposition home or self-care (01) ==
LOC: OBGYN 16:30 → OPOB 01-27 10:36 → OBGYN 02-02 07:30
PROVIDERS: Family Provider Family Medicine; PCP Family Medicine; Visit Provider Family Medicine
DX: O26.899 Other specified pregnancy related conditions, unspecified trimester (principal); Z3A.00 Weeks of gestation of pregnancy not specified; N89.8 Other specified noninflammatory disorders of vagina
CPT/HCPCS: 83986; 99211

== ENCOUNTER 2020-01-30 15:10 | Outpatient (CLI) | payer MEDICARE, MEDICAID, SELFPAY ==
[2020-01-30 15:21] VITALS: BMI 26.3
[2020-01-30 15:28] VITALS: BP 111/66; PULSE 92; RESP 16; TEMP 36.7
[2020-01-30 15:36] LABS: Add Urine Microscopic? NO
[2020-01-30 15:57] LABS: Urine Appearance Clear (CLEAR); Urine Color Straw (Yellow)
[2020-01-30 15:58] LABS: Bilirubin Urine Neg (NEGATIVE); Blood Urine Neg (Negative); Glucose Urine UA Norm (Normal); Ketones Urine Negative (Negative); Leukocyte Esterase Urine Negative (Negative); Nitrate Urine Negative (Negative); Protein Urine Neg (Negative); Sulfosalicylic Acid Urine Negative (Negative); Urobilinogen Urine Norm (Negative); pH Urine 8 (5-7)
[2020-01-30 16:06] LABS: Amphetamines Screen Urine Negative (Negative); Barbiturates Screen Urine Negative (Negative); Benzodiazepines Screen Urine Negative (Negative); Cocaine Screen Urine Negative (Negative); Opiate Screen Urine Negative (Negative); PCP Screen Urine Negative (Negative); THC Screen Urine Negative (Negative)
== END 2020-01-30 16:15 | disposition home or self-care (01) ==
LOC: OPOB 15:12 → OBGYN 16:09
PROVIDERS: Family Provider Family Medicine; PCP Family Medicine; Visit Provider Family Medicine
DX: O26.899 Other specified pregnancy related conditions, unspecified trimester (principal); Z3A.00 Weeks of gestation of pregnancy not specified; R10.9 Unspecified abdominal pain
CPT/HCPCS: 80306; 81003; 99211

== ENCOUNTER 2020-02-10 01:49 | Emergency (ER) | payer MEDICARE, MEDICAID, SELFPAY | END 2020-02-10 02:06 | disposition left against medical advice (07) | LOC: ER 06-06 15:51 | PROVIDERS: Emergency Provider Emergency Medicine | DX: O26.893 Other specified pregnancy related conditions, third trimester (principal); K21.0 Gastro-esophageal reflux disease with esophagitis; R07.89 Other chest pain; Z3A.30 30 weeks gestation of pregnancy; O99.333 Smoking (tobacco) complicating pregnancy, third trimester; F17.210 Nicotine dependence, cigarettes, uncomplicated | CPT/HCPCS: 99281 ==

== ENCOUNTER 2020-02-10 01:57 | Outpatient (CLI) | payer MEDICARE, MEDICAID, SELFPAY ==
[2020-02-10 02:16] VITALS: RESP 18; TEMP 36.8
[2020-02-10 02:17] VITALS: BMI 27.0
--- NOTE | 2020-02-10 02:43 | PC.NURSE ---
0238 RN at bedside moving external monitor at this time, heart tones intermittent at this time due to movement. Mom reports feeling baby move several times since she has arrived and has been monitored. Patient is still reporting chest pain.
[2020-02-10 02:49] VITALS: BP 120/65; PULSE 82; RESP 18
== END 2020-02-10 02:50 | disposition home or self-care (01) ==
LOC: OPOB 02:11 → OBGYN 02:12
PROVIDERS: Family Provider Family Medicine; PCP Family Medicine; Visit Provider Family Medicine
DX: O36.8190 Decreased fetal movements, unspecified trimester, not applicable or unspecified (principal); Z3A.00 Weeks of gestation of pregnancy not specified
CPT/HCPCS: 59025; 99211

== ENCOUNTER 2020-02-10 02:57 | Emergency (ER) | payer MEDICARE, MEDICAID, SELFPAY ==
[2020-02-10 03:00] VITALS: BP 126/80; PULSE 92; RESP 16; TEMP 36.9; O2SAT 97; BMI 27.0
--- NOTE | 2020-02-10 03:06 | XR_ITS ---
WS: [id number] CHEST XRAY TECHNIQUE: Portable chest. CLINICAL INFORMATION: cough COMPARISON: May 23, 2012 FINDINGS: Heart: Normal cardiac silhouette. Lungs: Lungs are clear. No consolidation or pleural effusion. Bones: Normal visualized bony structures. XR/XR chest 1V portable [id number] IMPRESSION: Normal chest
--- NOTE | 2020-02-10 03:06 | ECG_ITS ---
Measurements Intervals [place] Rate: 90 P: 33 MD: 152 QRS: 26 QRSD: 89 T: 25 QT: 348 QTc: 428 SINUS RHYTHM No previous ECG available for comparison Electronically Signed On 02-10-2020 6:43:53 CDT by Dirk Alcaraz M.D. [email or web address]
--- NOTE | 2020-02-10 03:15 | US_ITS ---
WS: [id number] ULTRASOUND OB LIMITED TECHNIQUE: Limited ultrasound examination of the fetus. CLINICAL INFORMATION: Pain COMPARISON: None. FINDINGS: Cervix measures 4.2 cm Single interuterine gestation. presentation is breech Placental location is posterior. Placenta grade: 1 heart rate 141 BPM. Normal amniotic fluid volume Anatomy: FEMUR LENGTH: 5.9 cm = 30w6d EGA by ultrasound: 30w6d ANTHONY by ultrasound: 04/14/2020 US/US OB <= 14 weeks fetus [id number] IMPRESSION: 1. Single intrauterine with breech presentation. 2. Placenta is posterior grade 1. 3. Normal amniotic fluid volume. 4. Estimated gestational age 30 weeks 6 days
--- NOTE | 2020-02-10 03:15 | USCV_ITS ---
Brittani Carballo Age: 39 Gender: F : 1980 Exam Date: 02/10/2020 03:50 Ordering Phys: Ingrid Barnett DO Technologist: Juan Manuel Campos [place] [facility] [place]: [place]ST PAIN HISTORY: CHEST PAIN PROCEDURES: The venous duplex Doppler examination of both lower extremities was performed in the standard fashion. The following venous structures were evaluated: common femoral vein, profunda vein, proximal portion of the greater saphenous vein, superficial femoral vein, and the popliteal vein. In addition, the posterior tibial and peroneal trunk were evaluated. Bilaterally, the common femoral, superficial femoral, profunda femoral, popliteal, posterior tibial, greater saphenous veins, and the peroneal trunk were identified and interrogated in the standard fashion. These veins were found to be easily compressible with spontaneous blood flow. No evidence of insufficiency or thrombus noted. FINDINGS: Normal 2-D Doppler and augmentation and compressibility throughout the lower extremity venous structures. Additional imaging through the proximal calf veins also reveals no thrombus. Limited evaluation of the greater saphenous vein is patent with no thrombus.. CONCLUSIONS No evidence of right lower extremity DVT. No evidence of left lower extremity DVT. Louis Temple MD (Electronically Signed) Final Date: 11 February 2020 10:56 S
--- NOTE | 2020-02-10 03:27 | W.ED.CHESTPA ---
Documented by User: Ingrid Barnett 02/10/20 05:40 HPI - Chest Pain General: Chief Complaint: Chest Pain Stated Complaint: CP Time Seen by Provider: 02/10/20 02:58 History of Present Illness: HPI narrative: Brittani is a very nice 39-year-old female who comes in stating that she is having chest pain. She describes the pain is sharp and aching and intermittent. The symptoms have been going on over the past 5 months. Tonight she got anxious because she is currently 30 weeks and did not feel as though the baby was moving very much. She presented here and was taken to labor and delivery and everything was documented as normal. There was no demise there was good heart rate and a reassuring nonstress test in labor and delivery according to the patient. The patient has no associated shortness of breath, cough, fever, chills or pleuritic component to her pain. Patient states that she was going to go home but was directed to come here by the Labor and Delivery nurses to have her heart checked. Associated symptoms: Deny abdominal pain, diaphoresis, dyspnea, fever(s), nausea, palpitations, syncope or vomiting Review of Systems General: Reports: other (negative unless marked) Const: Denies: fever, chills, body aches, fatigue, malaise or diaphoresis Eyes: Denies: change in vision or blurry vision ENMT: Denies: throat pain, painful swallowing, hoarseness, ear pain, ear discharge, Change in hearing or nasal discharge Card: Reports: chest pain; Denies: palpitations, irregular heart rhythm, syncope, pre-syncope, shortness of breath on exertion or shortness of breath when lying down Resp: Denies: shortness of breath, productive cough, non-productive cough, wheezing, coughing up blood or chest congestion GI: Denies: abdominal pain, nausea, vomiting, vomiting blood, coffee grounds in vomit, diarrhea, constipation, cramping, blood in stool or black tarry stool : Denies: flank pain, painful urination, urinary frequency, urinary urgency, decreased urine ouput, urinary incontinence or blood in urine Musc: Denies: neck pain, back pain, extremity pain, extremity swelling, joint pain, joint swelling, joint warmth or joint stiffness Skin/Breast: Denies: rash, skin tenderness or yellow skin Neuro: Denies: headache, numbness in extremities, weakness in extremities, changes in sensation, lack of coordination, difficulty walking, dizziness, vertigo or confusion Endo: Denies: excessive thirst, tired all the time, cold intolerance, excessive sweating, flushing or hot flashes Elie/Lymph: Denies: easy bruising, easy bleeding, petechiae or enlarged lymph nodes All/Imm: Denies: hives, throat swelling, tongue swelling, facial swelling or acute wheezing PFSH ED PFSH: Social History Smoking and tobacco status: current every day smoker Female Reproductive History: Date of last menstrual period: 07/16/19 Physical Exam Const: COMMON NORMALS: no apparent distress, oriented x3, no limitations, healthy appearing and well nourished EXAM LIMITATIONS: no altered mental status GENERAL APPEARANCE: cooperative, well kempt and well developed ORIENTATION/CONSCIOUSNESS: Yes awake HENMT: COMMON NORMALS: normocephalic, head/scalp atraumatic, hearing grossly normal bilaterally, external ears normal, EAC's normal, external nose normal and moist oral mucous membranes HEAD & SCALP: normal to inspection, normocephalic and atraumatic FACE & SINUS: normal facial exam and face symmetric NOSE: external nose normal and nares normal EXTERNAL EAR: Yes external ears normal EXTERNAL AUDITORY CANAL: EAC's normal MOUTH: oral and palatal mucosa normal and tongue normal Eye: COMMON NORMALS: PERRL, EOMs intact bilaterally, conjunctivae normal and no scleral icterus GENERAL EYE: normal appearance of both eyes and normal light reflex CONJUNCTIVA: Yes conjunctivae normal SCLERA: sclerae normal CORNEA: Yes corneas normal PUPIL: Yes PERRL DIRECT OPHTHALMOSCOPY: Yes normal light reflex Neck/C-Spine: COMMON NORMALS: full ROM, no lymphadenopathy, supple, no meningeal signs and no JVD GENERAL: Yes normal visual inspection and Yes trachea midline CERVICAL SPINE: Yes cervical ROM normal Chest: COMMONS NORMALS: inspection of chest normal and palpation of chest normal Resp: COMMON NORMALS: normal respiratory effort, no retractions, no use of accessory muscles and clear to auscultation bilaterally EFFORT & INSPECTION: Yes able to speak in complete sentences AUSCULTATION: clear to auscultation bilaterally Cardio: COMMON NORMALS: no JVD, regular rate, regular rhythm, S1 normal heart sound, S2 normal heart sound, no gallops, no clicks, no murmurs and no rub JUGULAR VENOUS DISTENTION: no JVD RATE: regular rate RHYTHM: regular rhythm HEART SOUNDS: S1 normal and S2 normal GI: COMMON NORMALS: soft to palpation, non-tender, no hepatosplenomegaly and no masses INSPECTION: Yes normal to inspection PALPATION: Yes soft, Yes no hepatosplenomegaly and Yes other (Gravid uterus consistent with dates) : COMMON NORMALS: Yes no CVA tenderness BLADDER/KIDNEY EXAM: Yes no CVA tenderness Back/Pelvis: COMMON NORMALS: no CVA tenderness, thoracic and lumbar spine normal to inspection, no thoracic nor lumbar tenderness and thoraco-lumbar ROM normal Extremity: COMMON NORMALS: normal to inspection, full ROM, normal capillary refill, no joint enlargement, no clubbing, cyanosis or edema and no calf tenderness Neuro: COMMON NORMALS: oriented x3, CN's II-XII intact bilaterally, moves all extremities, no focal motor deficits and no sensory deficits noted MENINGEAL SIGNS: Yes no meningeal signs Psych: COMMON NORMALS: mental status grossly normal, thought process normal, cooperative, affect normal, speech normal and activity/motor behavior normal APPEARANCE: Yes well kempt SPEECH: Yes normal speech THOUGHT PROCESS: normal thought process Skin: COMMON NORMALS: no rashes or lesions noted, skin turgor normal, no jaundice, no petechiae and no mottling GENERAL SKIN EXAM: no rashes or lesions noted and turgor normal Course Vital Signs: Vital signs: Vital Signs Temperature 98.4 F 02/10/20 03:00 Pulse Rate 77 02/10/20 06:45 Respiratory Rate 14 02/10/20 06:45 Blood Pressure 100/56 02/10/20 06:45 Pulse Oximetry 99 02/10/20 06:45 MDM - Chest Pain Lab Data: Labs: Lab Results 02/10/20 02/10/20 02/10/20 Range/Units 03:37 03:37 03:37 WBC 12.7 H (4.0-10.0) 10^3/ uL RBC 4.54 (4.1-5.3) 10^6/u L Hgb 13.5 (11.5-15.3) g/dL Hct 39.1 (37.0-47.0) % MCV 86.1 (81-99) fL MCH 29.7 (28.0-34.0) pg MCHC 34.5 (30.0-36.0) g/dL RDW 12.8 (12.1-15.1) % Plt Count 151 (130-400) 10^3/c mm MPV 10.5 H (7.4-10.4) fL Neut % (Auto) 75.5 % Lymph % (Auto) 18.8 % [place] % (Auto) 4.1 % Eos % (Auto) 0.7 % Baso % (Auto) 0.2 % Neut # (Auto) 9.6 H (1.8-7.7) 10^3/u L Lymph # (Auto) 2.4 (0.8-4.8) 10^3/u L [place] # (Auto) 0.5 (0.2-0.9) 10^3/u L Eos # (Auto) 0.1 (0.0-0.8) 10^3/u L Baso # (Auto) 0.0 (0.0-0.1) 10^3/u L Nucleated RBC % (a uto) 0 % Nucleated RBCs # 0.0 /100WBC D-Dimer 1.74 H (0-0.59) ug/mIFE U Sodium 136 (136-145) mmol/L Potassium 3.7 (3.5-5.1) mmol/L Chloride 101 (98-107) mmol/L Carbon Dioxide 22 (22-29) mmol/L Anion Gap 16.7 (5-19) BUN 2 L (6-20) mg/dL Creatinine 0.5 (0.5-0.9) mg/dL GFR Calculation 138.8 H (90-130) mL/min Glucose 96 (65-115) mg/dL Calculated Osmolal ity 277 L (285-295) mOsm/k g Calcium 9.4 (8.5-10.5) mg/dL Total Bilirubin 0.2 (0.15-1.2) mg/dL AST 17 (0-32) U/L ALT 15 (0-33) U/L Alkaline Phosphata se 158 H (35-105) IU/L Troponin T Baselin e (0-10) ng/mL Troponin T 120 Min [place] (0-10) ng/mL Delta Troponin T (0-10) ABS# Total Protein 6.2 L (6.6-8.7) g/dL Albumin 3.5 (3.5-5.2) g/dL Globulin 2.7 (1.3-4.6) g/dL Urine Color (Yellow) Urine Appearance (CLEAR) Urine pH (5-7) Ur Specific Gravit y (1.005-1.030) Urine Protein (Negative) Urine Glucose (UA) (Normal) Urine Ketones (Negative) Urine Blood (Negative) Urine Nitrate (Negative) Urine Bilirubin (NEGATIVE) Urine Urobilinogen (Negative) mg/dL Ur Leukocyte Shauna ase (Negative) Urine RBC (0-2) /hpf Urine WBC (0-5) /hpf Ur Squamous Epith Cells (0-5) Urine Bacteria (NONE) Urine Opiates Scre en (Negative) ng/mL Ur Barbiturates Sc reen (Negative) ng/mL Ur Phencyclidine S crn (Negative) ng/mL Ur Amphetamines Sc reen (Negative) ng/mL U Benzodiazepines Scrn (Negative) ng/mL Urine Cocaine Scre en (Negative) ng/mL U Marijuana (THC) Screen (Negative) ng/mL 02/10/20 02/10/20 02/10/20 Range/Units 03:37 04:15 04:15 WBC (4.0-10.0) 10^3/ uL RBC (4.1-5.3) 10^6/u L Hgb (11.5-15.3) g/dL Hct (37.0-47.0) % MCV (81-99) fL MCH (28.0-34.0) pg MCHC (30.0-36.0) g/dL RDW (12.1-15.1) % Plt Count (130-400) 10^3/c mm MPV (7.4-10.4) fL Neut % (Auto) % Lymph % (Auto) % [place] % (Auto) % Eos % (Auto) % Baso % (Auto) % Neut # (Auto) (1.8-7.7) 10^3/u L Lymph # (Auto) (0.8-4.8) 10^3/u L [place] # (Auto) (0.2-0.9) 10^3/u L Eos # (Auto) (0.0-0.8) 10^3/u L Baso # (Auto) (0.0-0.1) 10^3/u L Nucleated RBC % (a uto) % Nucleated RBCs # /100WBC D-Dimer (0-0.59) ug/mIFE U Sodium (136-145) mmol/L Potassium (3.5-5.1) mmol/L Chloride (98-107) mmol/L Carbon Dioxide (22-29) mmol/L Anion Gap (5-19) BUN (6-20) mg/dL Creatinine (0.5-0.9) mg/dL GFR Calculation (90-130) mL/min Glucose (65-115) mg/dL Calculated Osmolal ity (285-295) mOsm/k g Calcium (8.5-10.5) mg/dL Total Bilirubin (0.15-1.2) mg/dL AST (0-32) U/L ALT (0-33) U/L Alkaline Phosphata se (35-105) IU/L Troponin T Baselin e 6 (0-10) ng/mL Troponin T 120 Min [place] (0-10) ng/mL Delta Troponin T (0-10) ABS# Total Protein (6.6-8.7) g/dL Albumin (3.5-5.2) g/dL Globulin (1.3-4.6) g/dL Urine Color Yellow (Yellow) Urine Appearance Clear (CLEAR) Urine pH 6 (5-7) Ur Specific Gravit y 1.010 (1.005-1.030) Urine Protein Neg (Negative) Urine Glucose (UA) Norm (Normal) Urine Ketones Negative (Negative) Urine Blood Neg (Negative) Urine Nitrate Negative (Negative) Urine Bilirubin Neg (NEGATIVE) Urine Urobilinogen Norm (Negative) mg/dL Ur Leukocyte Shauna ase Negative (Negative) Urine RBC Rare (0-2) /hpf Urine WBC Rare (0-5) /hpf Ur Squamous Epith Cells 0-4 H (0-5) Urine Bacteria 1+ H (NONE) Urine Opiates Scre en Negative (Negative) ng/mL Ur Barbiturates Sc reen Negative (Negative) ng/mL Ur Phencyclidine S crn Negative (Negative) ng/mL Ur Amphetamines Sc reen Negative (Negative) ng/mL U Benzodiazepines Scrn Negative (Negative) ng/mL Urine Cocaine Scre en Negative (Negative) ng/mL U Marijuana (THC) Screen Negative (Negative) ng/mL 02/10/20 Range/Units 05:10 WBC (4.0-10.0) 10^3/ uL RBC (4.1-5.3) 10^6/u L Hgb (11.5-15.3) g/dL Hct (37.0-47.0) % MCV (81-99) fL MCH (28.0-34.0) pg MCHC (30.0-36.0) g/dL RDW (12.1-15.1) % Plt Count (130-400) 10^3/c mm MPV (7.4-10.4) fL Neut % (Auto) % Lymph % (Auto) % [place] % (Auto) % Eos % (Auto) % Baso % (Auto) % Neut # (Auto) (1.8-7.7) 10^3/u L Lymph # (Auto) (0.8-4.8) 10^3/u L [place] # (Auto) (0.2-0.9) 10^3/u L Eos # (Auto) (0.0-0.8) 10^3/u L Baso # (Auto) (0.0-0.1) 10^3/u L Nucleated RBC % (a uto) % Nucleated RBCs # /100WBC D-Dimer (0-0.59) ug/mIFE U Sodium (136-145) mmol/L Potassium (3.5-5.1) mmol/L Chloride (98-107) mmol/L Carbon Dioxide (22-29) mmol/L Anion Gap (5-19) BUN (6-20) mg/dL Creatinine (0.5-0.9) mg/dL GFR Calculation (90-130) mL/min Glucose (65-115) mg/dL Calculated Osmolal ity (285-295) mOsm/k g Calcium (8.5-10.5) mg/dL Total Bilirubin (0.15-1.2) mg/dL AST (0-32) U/L ALT (0-33) U/L Alkaline Phosphata se (35-105) IU/L Troponin T Baselin e (0-10) ng/mL Troponin T 120 Min [place] 6.00 (0-10) ng/mL Delta Troponin T 0 (0-10) ABS# Total Protein (6.6-8.7) g/dL Albumin (3.5-5.2) g/dL Globulin (1.3-4.6) g/dL Urine Color (Yellow) Urine Appearance (CLEAR) Urine pH (5-7) Ur Specific Gravit y (1.005-1.030) Urine Protein (Negative) Urine Glucose (UA) (Normal) Urine Ketones (Negative) Urine Blood (Negative) Urine Nitrate (Negative) Urine Bilirubin (NEGATIVE) Urine Urobilinogen (Negative) mg/dL Ur Leukocyte Shauna ase (Negative) Urine RBC (0-2) /hpf Urine WBC (0-5) /hpf Ur Squamous Epith Cells (0-5) Urine Bacteria (NONE) Urine Opiates Scre en (Negative) ng/mL Ur Barbiturates Sc reen (Negative) ng/mL Ur Phencyclidine S crn (Negative) ng/mL Ur Amphetamines Sc reen (Negative) ng/mL U Benzodiazepines Scrn (Negative) ng/mL Urine Cocaine Scre en (Negative) ng/mL U Marijuana (THC) Screen (Negative) ng/mL Imaging Data^: CXR: My impression: No acute cardiopulmonary findings. US OB: My impression: Ultrasound viability, technologist interpretation -see formal report. 30-week intrauterine with good heart rate and movement. Breech presentation. US Vascular: My impression: Ultrasound bilateral venous Doppler lower extremity -no evidence of DVT EKG Data^: EKG 1: Attestation: I personally reviewed and interpreted this EKG as follows: EKG interpretation date: 02/10/20 EKG interpretation time: 03:18 Interpretation: Normal sinus rhythm at 90 beats a minute, normal axis, normal intervals, no blocks, no acute ST or T wave changes. EKG 2: Attestation: I personally reviewed and interpreted this EKG as follows: EKG interpretation date: 02/10/20 EKG interpretation time: 05:37 Interpretation: Normal sinus rhythm at 77 beats a minute, normal axis, no blocks, normal intervals. No acute ST-T wave changes. Discharge Plan Discharge Patient Disposition: Home, Self-Care Clinical Impression: GERD with esophagitis, Atypical chest pain, 30 weeks gestation of Condition: Stable Prescriptions: New pantoprazole 40 mg tablet,delayed release (DR/EC) 40 mg PO DAILY Qty: 30 RF: 0 No Action buprenorphine HCl 8 mg tablet, sublingual 8 mg SUBLINGUAL TID RF: 0 sennosides [Senna Lax] 8.6 mg Tablet 8.6 mg PO QPM RF: 0 clonazepam 0.5 mg Tablet 0.5 mg PO BID RF: 0 docusate sodium 100 mg Tablet 200 mg PO QPM RF: 0 aripiprazole 10 mg Tablet 10 mg PO QPM RF: 0 Prenatabs Rx 29 mg iron- 1 mg Tablet 1 tab PO QPM RF: 0 duloxetine 60 mg Capsule, Delayed Rel Sprinkle 60 mg PO DAILY RF: 0 famotidine 20 mg Tablet 20 mg PO DAILY RF: 0 Discharge Orders: Discharge Order (Routine); Ordered 02/10/20 Ordered By: Sae Gomez Referrals: Lori Loya DO [Family Provider] - Discharge Diet: As Directed Patient Instructions: Diet for Ulcers and Gastritis (ED) Activity Restrictions/Additional Instructions: Follow up with your doctor within the week. Discharge Date/Time: 02/10/20 06:46 Sign Out Sign Out Data: Patient Sign Out occurred on 02/10/20 at 06:22. Patient's care was discussed, and care was transferred from Ingrid Barnett to Sae Gomez DO. Sign Out Comment: Case turned over to Dr. Gomez at change of shift. Last updated by Ingrid Barnett at 02/10/20 05:53 Coding Level of Care Code ED Public Address Systems Mechanic for Chg Fwd Exam Comprehensive Documented by User: Sae Gomez DO 02/10/20 07:12 HPI - Chest Pain General: Chief Complaint: Chest Pain Stated Complaint: CP Time Seen by Provider: 02/10/20 02:58 History of Present Illness: HPI narrative: Care assumed a change of shift. Chart reviewed CTA is negative evaluation in the OB department was reassuring. Labs reviewed suspect she may have some reflux is a question of some gallbladder issues however she has no significant lab changes. PFSH ED PFSH: Social History Smoking and tobacco status: current every day smoker Course Vital Signs: Vital signs: Vital Signs Temperature 98.4 F 02/10/20 03:00 Pulse Rate 77 02/10/20 06:45 Respiratory Rate 14 02/10/20 06:45 Blood Pressure 100/56 02/10/20 06:45 Pulse Oximetry 99 02/10/20 06:45 MDM - Chest Pain MDM Narrative: Medical decision making narrative: Reviewed findings with patient. We will discharge the patient home start her on a Protonix 40 mg daily. Lab Data: Labs: Lab Results 02/10/20 02/10/20 02/10/20 Range/Units 03:37 03:37 03:37 WBC 12.7 H (4.0-10.0) 10^3/ uL RBC 4.54 (4.1-5.3) 10^6/u L Hgb 13.5 (11.5-15.3) g/dL Hct 39.1 (37.0-47.0) % MCV 86.1 (81-99) fL MCH 29.7 (28.0-34.0) pg MCHC 34.5 (30.0-36.0) g/dL RDW 12.8 (12.1-15.1) % Plt Count 151 (130-400) 10^3/c mm MPV 10.5 H (7.4-10.4) fL Neut % (Auto) 75.5 % Lymph % (Auto) 18.8 % [place] % (Auto) 4.1 % Eos % (Auto) 0.7 % Baso % (Auto) 0.2 % Neut # (Auto) 9.6 H (1.8-7.7) 10^3/u L Lymph # (Auto) 2.4 (0.8-4.8) 10^3/u L [place] # (Auto) 0.5 (0.2-0.9) 10^3/u L Eos # (Auto) 0.1 (0.0-0.8) 10^3/u L Baso # (Auto) 0.0 (0.0-0.1) 10^3/u L Nucleated RBC % (a uto) 0 % Nucleated RBCs # 0.0 /100WBC D-Dimer 1.74 H (0-0.59) ug/mIFE U Sodium 136 (136-145) mmol/L Potassium 3.7 (3.5-5.1) mmol/L Chloride 101 (98-107) mmol/L Carbon Dioxide 22 (22-29) mmol/L Anion Gap 16.7 (5-19) BUN 2 L (6-20) mg/dL Creatinine 0.5 (0.5-0.9) mg/dL GFR Calculation 138.8 H (90-130) mL/min Glucose 96 (65-115) mg/dL Calculated Osmolal ity 277 L (285-295) mOsm/k g Calcium 9.4 (8.5-10.5) mg/dL Total Bilirubin 0.2 (0.15-1.2) mg/dL AST 17 (0-32) U/L ALT 15 (0-33) U/L Alkaline Phosphata se 158 H (35-105) IU/L Troponin T Baselin e (0-10) ng/mL Troponin T 120 Min [place] (0-10) ng/mL Delta Troponin T (0-10) ABS# Total Protein 6.2 L (6.6-8.7) g/dL Albumin 3.5 (3.5-5.2) g/dL Globulin 2.7 (1.3-4.6) g/dL Urine Color (Yellow) Urine Appearance (CLEAR) Urine pH (5-7) Ur Specific Gravit y (1.005-1.030) Urine Protein (Negative) Urine Glucose (UA) (Normal) Urine Ketones (Negative) Urine Blood (Negative) Urine Nitrate (Negative) Urine Bilirubin (NEGATIVE) Urine Urobilinogen (Negative) mg/dL Ur Leukocyte Shauna ase (Negative) Urine RBC (0-2) /hpf Urine WBC (0-5) /hpf Ur Squamous Epith Cells (0-5) Urine Bacteria (NONE) Urine Opiates Scre en (Negative) ng/mL Ur Barbiturates Sc reen (Negative) ng/mL Ur Phencyclidine S crn (Negative) ng/mL Ur Amphetamines Sc reen (Negative) ng/mL U Benzodiazepines Scrn (Negative) ng/mL Urine Cocaine Scre en (Negative) ng/mL U Marijuana (THC) Screen (Negative) ng/mL 02/10/20 02/10/20 02/10/20 Range/Units 03:37 04:15 04:15 WBC (4.0-10.0) 10^3/ uL RBC (4.1-5.3) 10^6/u L Hgb (11.5-15.3) g/dL Hct (37.0-47.0) % MCV (81-99) fL MCH (28.0-34.0) pg MCHC (30.0-36.0) g/dL RDW (12.1-15.1) % Plt Count (130-400) 10^3/c mm MPV (7.4-10.4) fL Neut % (Auto) % Lymph % (Auto) % [place] % (Auto) % Eos % (Auto) % Baso % (Auto) % Neut # (Auto) (1.8-7.7) 10^3/u L Lymph # (Auto) (0.8-4.8) 10^3/u L [place] # (Auto) (0.2-0.9) 10^3/u L Eos # (Auto) (0.0-0.8) 10^3/u L Baso # (Auto) (0.0-0.1) 10^3/u L Nucleated RBC % (a uto) % Nucleated RBCs # /100WBC D-Dimer (0-0.59) ug/mIFE U Sodium (136-145) mmol/L Potassium (3.5-5.1) mmol/L Chloride (98-107) mmol/L Carbon Dioxide (22-29) mmol/L Anion Gap (5-19) BUN (6-20) mg/dL Creatinine (0.5-0.9) mg/dL GFR Calculation (90-130) mL/min Glucose (65-115) mg/dL Calculated Osmolal ity (285-295) mOsm/k g Calcium (8.5-10.5) mg/dL Total Bilirubin (0.15-1.2) mg/dL AST (0-32) U/L ALT (0-33) U/L Alkaline Phosphata se (35-105) IU/L Troponin T Baselin e 6 (0-10) ng/mL Troponin T 120 Min [place] (0-10) ng/mL Delta Troponin T (0-10) ABS# Total Protein (6.6-8.7) g/dL Albumin (3.5-5.2) g/dL Globulin (1.3-4.6) g/dL Urine Color Yellow (Yellow) Urine Appearance Clear (CLEAR) Urine pH 6 (5-7) Ur Specific Gravit y 1.010 (1.005-1.030) Urine Protein Neg (Negative) Urine Glucose (UA) Norm (Normal) Urine Ketones Negative (Negative) Urine Blood Neg (Negative) Urine Nitrate Negative (Negative) Urine Bilirubin Neg (NEGATIVE) Urine Urobilinogen Norm (Negative) mg/dL Ur Leukocyte Shauna ase Negative (Negative) Urine RBC Rare (0-2) /hpf Urine WBC Rare (0-5) /hpf Ur Squamous Epith Cells 0-4 H (0-5) Urine Bacteria 1+ H (NONE) Urine Opiates Scre en Negative (Negative) ng/mL Ur Barbiturates Sc reen Negative (Negative) ng/mL Ur Phencyclidine S crn Negative (Negative) ng/mL Ur Amphetamines Sc reen Negative (Negative) ng/mL U Benzodiazepines Scrn Negative (Negative) ng/mL Urine Cocaine Scre en Negative (Negative) ng/mL U Marijuana (THC) Screen Negative (Negative) ng/mL 02/10/20 Range/Units 05:10 WBC (4.0-10.0) 10^3/ uL RBC (4.1-5.3) 10^6/u L Hgb (11.5-15.3) g/dL Hct (37.0-47.0) % MCV (81-99) fL MCH (28.0-34.0) pg MCHC (30.0-36.0) g/dL RDW (12.1-15.1) % Plt Count (130-400) 10^3/c mm MPV (7.4-10.4) fL Neut % (Auto) % Lymph % (Auto) % [place] % (Auto) % Eos % (Auto) % Baso % (Auto) % Neut # (Auto) (1.8-7.7) 10^3/u L Lymph # (Auto) (0.8-4.8) 10^3/u L [place] # (Auto) (0.2-0.9) 10^3/u L Eos # (Auto) (0.0-0.8) 10^3/u L Baso # (Auto) (0.0-0.1) 10^3/u L Nucleated RBC % (a uto) % Nucleated RBCs # /100WBC D-Dimer (0-0.59) ug/mIFE U Sodium (136-145) mmol/L Potassium (3.5-5.1) mmol/L Chloride (98-107) mmol/L Carbon Dioxide (22-29) mmol/L Anion Gap (5-19) BUN (6-20) mg/dL Creatinine (0.5-0.9) mg/dL GFR Calculation (90-130) mL/min Glucose (65-115) mg/dL Calculated Osmolal ity (285-295) mOsm/k g Calcium (8.5-10.5) mg/dL Total Bilirubin (0.15-1.2) mg/dL AST (0-32) U/L ALT (0-33) U/L Alkaline Phosphata se (35-105) IU/L Troponin T Baselin e (0-10) ng/mL Troponin T 120 Min [place] 6.00 (0-10) ng/mL Delta Troponin T 0 (0-10) ABS# Total Protein (6.6-8.7) g/dL Albumin (3.5-5.2) g/dL Globulin (1.3-4.6) g/dL Urine Color (Yellow) Urine Appearance (CLEAR) Urine pH (5-7) Ur Specific Gravit y (1.005-1.030) Urine Protein (Negative) Urine Glucose (UA) (Normal) Urine Ketones (Negative) Urine Blood (Negative) Urine Nitrate (Negative) Urine Bilirubin (NEGATIVE) Urine Urobilinogen (Negative) mg/dL Ur Leukocyte Shauna ase (Negative) Urine RBC (0-2) /hpf Urine WBC (0-5) /hpf Ur Squamous Epith Cells (0-5) Urine Bacteria (NONE) Urine Opiates Scre en (Negative) ng/mL Ur Barbiturates Sc reen (Negative) ng/mL Ur Phencyclidine S crn (Negative) ng/mL Ur Amphetamines Sc reen (Negative) ng/mL U Benzodiazepines Scrn (Negative) ng/mL Urine Cocaine Scre en (Negative) ng/mL U Marijuana (THC) Screen (Negative) ng/mL Discharge Plan Discharge Patient Disposition: Home, Self-Care Clinical Impression: GERD with esophagitis, Atypical chest pain, 30 weeks gestation of Condition: Stable Prescriptions: New pantoprazole 40 mg tablet,delayed release (DR/EC) 40 mg PO DAILY Qty: 30 RF: 0 No Action buprenorphine HCl 8 mg tablet, sublingual 8 mg SUBLINGUAL TID RF: 0 sennosides [Senna Lax] 8.6 mg Tablet 8.6 mg PO QPM RF: 0 clonazepam 0.5 mg Tablet 0.5 mg PO BID RF: 0 docusate sodium 100 mg Tablet 200 mg PO QPM RF: 0 aripiprazole 10 mg Tablet 10 mg PO QPM RF: 0 Prenatabs Rx 29 mg iron- 1 mg Tablet 1 tab PO QPM RF: 0 duloxetine 60 mg Capsule, Delayed Rel Sprinkle 60 mg PO DAILY RF: 0 famotidine 20 mg Tablet 20 mg PO DAILY RF: 0 Discharge Orders: Discharge Order (Routine); Ordered 02/10/20 Ordered By: Sae Gomez Referrals: Lori Loya DO [Family Provider] - Discharge Diet: As Directed Patient Instructions: Diet for Ulcers and Gastritis (ED) Activity Restrictions/Additional Instructions: Follow up with your doctor within the week. Discharge Date/Time: 02/10/20 06:46 Sign Out Sign Out Data: Patient Sign Out occurred on 02/10/20 at 06:22. Patient's care was discussed, and care was transferred from nIgrid Barnett to Sae Gomez DO. Sign Out Comment: Case turned over to Dr. Gomez at change of shift. Last updated by Ingrid Barnett at 02/10/20 05:53 Coding Level of Care Code ED Public Address Systems Mechanic for Chg Fwd Exam Comprehensive
[2020-02-10] MEDS: sodium chloride 0.9% 1,000 ML 100 ML IV (03:35)
[2020-02-10 04:11] LABS: Basophils % 0.2 %; Eosinophils # 0.1 10^3/uL (0.0-0.8); Eosinophils % 0.7 %; Hematocrit 39.1 % (37.0-47.0); Hemoglobin 13.5 g/dL (11.5-15.3); Lymphocytes # 2.4 10^3/uL (0.8-4.8); Lymphocytes % 18.8 %; Mean Corpuscular HGB Conc 34.5 g/dL (30.0-36.0); Mean Corpuscular Hemoglobin 29.7 pg (28.0-34.0); Mean Corpuscular Volume 86.1 fL (81-99); Mean Platelet Volume 10.5 fL (7.4-10.4); Monocytes # 0.5 10^3/uL (0.2-0.9); Monocytes % 4.1 %; Neutrophils # 9.6 10^3/uL (1.8-7.7); Neutrophils % 75.5 %; Nucleated Red Blood Cells % 0 %; Platelet Count 151 10^3/cmm (130-400); Red Blood Count 4.54 10^6/uL (4.1-5.3); Red Cell Distribution Width 12.8 % (12.1-15.1); White Blood Count 12.7 10^3/uL (4.0-10.0)
[2020-02-10 04:24] LABS: D Dimer 1.74 ug/mIFEU (0-0.59)
--- NOTE | 2020-02-10 04:28 | CTR_ITS ---
PROCEDURE INFORMATION: Exam: CT Angiography Chest With Contrast Exam date and time: 02/10/2020 4:42 AM Age: 39 years old Clinical indication: Chest pain; Patient HX: Positive d-dimer, PT 30 weeks , shielded; Additional info: Chest pain/postive d-dimer TECHNIQUE: Imaging protocol: Computed tomographic angiography of the chest with intravenous contrast. 3D rendering: MIP and/or 3D reconstructed images were created by the technologist. Total DLP: 495.61 mGy-cm Radiation optimization: All CT scans at this facility use at least one of these dose optimization techniques: automated exposure control; mA and/or kV adjustment per patient size (includes targeted exams where dose is matched to clinical indication); or iterative reconstruction. Contrast material: OMNI 350; Contrast volume: 80 ml; Contrast route: 20G; COMPARISON: CR XR chest 1V portable [id number] 02/10/2020 3:14 AM FINDINGS: Pulmonary arteries: No central or segmental pulmonary embolus. No suggestion of a subsegmental embolus. Aorta: No aortic aneurysm or dissection. Lungs: Several paraseptal blebs in both lungs. Calcified granuloma in each upper lobe. Slight dependent atelectasis in the lower lobes. No consolidation. Pleural space: Unremarkable. No pneumothorax. No pleural effusion. Heart: No cardiomegaly. No pericardial effusion. Gallbladder and bile ducts: Area of slightly increased density within the gallbladder. No calcified stones in the visualized gallbladder. Lymph nodes: No apparent enlarged nodes. Bones/joints: Old compression fractures. Degeneration of several discs. Focal lucency in the left humeral head extending into its margin questionably due to an old fracture or dislocation versus residual from a prior fixation device. Soft tissues: No acute finding. Other findings: Shielding over the abdomen on the oil scout images. CT/CT angio chest PE protcl [id number] IMPRESSION: 1. No apparent pulmonary embolus. 2. Slight emphysema. 3. Area of slightly increased density within the gallbladder raising the possibility of noncalcified stones and/or sludge. Other findings detailed above. Radiation Dose CTDIVOL = (mGy): DLP = 495.61 (mGy-cm)
[2020-02-10 04:30] LABS: Alanine Aminotransferase 15 U/L (0-33); Albumin Level 3.5 g/dL (3.5-5.2); Alkaline Phosphatase 158 IU/L (35-105); Anion Gap 16.7 (5-19); Aspartate Amino Transferase 17 U/L (0-32); Blood Urea Nitrogen 2 mg/dL (6-20); Calcium 9.4 mg/dL (8.5-10.5); Carbon Dioxide 22 mmol/L (22-29); Chloride 101 mmol/L (98-107); Globulin 2.7 g/dL (1.3-4.6); Glomerular Filtration Rate 138.8 mL/min (90-130); Glucose 96 mg/dL (65-115); Osmolality Calculated 277 mOsm/kg (285-295); Potassium 3.7 mmol/L (3.5-5.1); Sodium 136 mmol/L (136-145); Total Bilirubin 0.2 mg/dL (0.15-1.2); Total Protein 6.2 g/dL (6.6-8.7)
[2020-02-10 04:32] LABS: Troponin(5th) Baseline 6 ng/mL (0-10)
[2020-02-10 04:38] LABS: Amphetamines Screen Urine Negative (Negative); Barbiturates Screen Urine Negative (Negative); Benzodiazepines Screen Urine Negative (Negative); Cocaine Screen Urine Negative (Negative); Opiate Screen Urine Negative (Negative); PCP Screen Urine Negative (Negative); THC Screen Urine Negative (Negative)
[2020-02-10 04:43] LABS: Bacteria Urine 1+; Bilirubin Urine Neg (NEGATIVE); Blood Urine Neg (Negative); Glucose Urine UA Norm (Normal); Ketones Urine Negative (Negative); Leukocyte Esterase Urine Negative (Negative); Nitrate Urine Negative (Negative); Protein Urine Neg (Negative); RBC Urine RARE /hpf (0-2); Squamous Epithelial Cell Urine 0-4 (0-5); Urine Appearance Clear (CLEAR); Urine Color Yellow (Yellow); Urobilinogen Urine Norm (Negative); WBC Urine RARE /hpf (0-5); pH Urine 6 (5-7)
--- NOTE | 2020-02-10 05:06 | ECG_ITS ---
Measurements Intervals [place] Rate: 77 P: 22 RI: 131 QRS: 46 QRSD: 90 T: 28 QT: 361 QTc: 409 SINUS RHYTHM No previous ECG available for comparison Electronically Signed On 02-10-2020 6:47:26 CDT by Dirk Alcaraz M.D. [email or web address]
[2020-02-10 06:05] LABS: Troponin 5 2HR Delta 0 ABS# (0-10)
[2020-02-10 06:45] VITALS: BP 100/56; PULSE 77; RESP 14; O2SAT 99
--- NOTE | 2020-02-10 09:06 | ECG_ITS ---
Measurements Intervals [place] Rate: 77 P: 22 AK: 131 QRS: 46 QRSD: 90 T: 28 QT: 361 QTc: 409 SINUS RHYTHM No previous ECG available for comparison [email or web address]
== END 2020-02-10 06:46 | disposition home or self-care (01) ==
PROVIDERS: Emergency Medicine; Emergency Provider Family Medicine; Family Provider Family Medicine
DX: O26.893 Other specified pregnancy related conditions, third trimester (principal); K21.0 Gastro-esophageal reflux disease with esophagitis; Z3A.30 30 weeks gestation of pregnancy; R07.89 Other chest pain; O99.333 Smoking (tobacco) complicating pregnancy, third trimester; F17.210 Nicotine dependence, cigarettes, uncomplicated; Z79.899 Other long term (current) drug therapy
CPT/HCPCS: 12345; 71045; 71275; 76801; 80053; 80306; 81001; 84484; 85025; 85378; 93005; 93970; 96360; 96361; 99283; 99284; J7030

== ENCOUNTER 2020-02-23 16:35 | Outpatient (CLI) | payer MEDICARE, MEDICAID, SELFPAY ==
[2020-02-23] VITALS (31 sets, daily range): BP systolic 0–134; BP diastolic 0–70; PULSE 72–110; RESP 17; TEMP 36.6; O2SAT 90–99; BMI 27.8
[2020-02-23] MEDS: bisacodyl 10 mg Supp PR (17:36)
[2020-02-23] MEDS: terbutaline 1 mg/mL INJ 0.25 MG SUBCUT ×2 (19:22→19:49)
[2020-02-23] MEDS: betamethasone susp 6 mg/mL 5 mL 12 MG IM (19:57)
== END 2020-02-23 22:38 | disposition home or self-care (01) ==
LOC: OPOB 16:42 → OBGYN 16:55
PROVIDERS: Family Provider Family Medicine; Visit Provider Obstetrics & Gynecology
DX: O99.619 Diseases of the digestive system complicating pregnancy, unspecified trimester (principal); Z3A.00 Weeks of gestation of pregnancy not specified; K59.00 Constipation, unspecified
CPT/HCPCS: 59025; 96372; 99211; J0702; J3105

== ENCOUNTER 2020-02-24 17:16 | Outpatient (CLI) | payer MEDICARE, MEDICAID, SELFPAY ==
[2020-02-24] MEDS: betamethasone susp 6 mg/mL 5 mL 12 MG IM (17:33)
== END 2020-02-24 17:40 | disposition home or self-care (01) ==
LOC: OPOB 17:20 → OBGYN 17:20
PROVIDERS: Family Provider Family Medicine; Visit Provider Family Medicine
DX: O60.02 Preterm labor without delivery, second trimester (principal); Z3A.00 Weeks of gestation of pregnancy not specified
CPT/HCPCS: 96372; 99211; J0702

== ENCOUNTER 2020-02-29 22:14 | Emergency (ER) | payer MEDICARE, MEDICAID, SELFPAY ==
[2020-02-29 22:20] VITALS: BP 128/82; PULSE 107; RESP 18; TEMP 37; O2SAT 100; BMI 28.1
--- NOTE | 2020-02-29 22:51 | W.ED.EYEPROB ---
HPI - Eye Problem General: Chief complaint: Eye Problems Stated complaint: left eye problems Time Seen by Provider: 02/29/20 22:51 Source: patient Mode of arrival: ambulatory Limitations: no limitations History of Present Illness: HPI Narrative: Patient comes in today for concerns of dilation of the left pupil. Patient reports that she dyed her hair today and then noted that her left pupil was dilated. Patient is on multiple medications for psychiatric illness and for her . Patient does routinely use a scopolamine patch for nausea. Patient denies headache, weakness in extremities, or other abnormalities. Review of Systems General: Reports: 10 or more systems reviewed and unremarkable except in HPI and below Eyes: Reports: other PFS ED PFSH: Social History Smoking and tobacco status: current every day smoker Female Reproductive History: Date of last menstrual period: 07/16/19 Physical Exam Const: COMMON NORMALS: no apparent distress and oriented x3 GENERAL APPEARANCE: cooperative HENMT: COMMON NORMALS: normocephalic, TM's normal bilaterally and external nose normal HEAD & SCALP: normal to inspection and normocephalic NOSE: external nose normal TYMPANIC MEMBRANE: TM's normal bilaterally MOUTH: oral and palatal mucosa normal THROAT: posterior oropharynx normal Eye: GENERAL EYE: other (dilated left pupil, reactive to light) Neck/C-Spine: COMMON NORMALS: full ROM Lymph: LYMPHATIC: no lymphadenopathy noted Chest: COMMONS NORMALS: inspection of chest normal Resp: COMMON NORMALS: normal respiratory effort EFFORT & INSPECTION: Yes able to speak in complete sentences Cardio: COMMON NORMALS: regular rate and regular rhythm RATE: regular rate RHYTHM: regular rhythm GI: COMMON NORMALS: non-tender : COMMON NORMALS: Yes no CVA tenderness BLADDER/KIDNEY EXAM: Yes no CVA tenderness Back/Pelvis: COMMON NORMALS: no CVA tenderness and thoracic and lumbar spine normal to inspection Extremity: COMMON NORMALS: normal to inspection Neuro: COMMON NORMALS: oriented x3 and moves all extremities Psych: COMMON NORMALS: mental status grossly normal and cooperative Skin: COMMON NORMALS: no rashes or lesions noted GENERAL SKIN EXAM: no rashes or lesions noted Course Vital Signs: Vital signs: Vital Signs Temperature 98.6 F 02/29/20 22:20 Pulse Rate 107 H 02/29/20 22:20 Respiratory Rate 18 02/29/20 22:20 Blood Pressure 128/82 02/29/20 22:20 Pulse Oximetry 100 02/29/20 22:20 MDM - Eye Problem MDM Narrative: Medical decision making narrative: Patient comes in for concerns of dilation of left pupil. On exam we have a 3 mm right pupil and a 5 mm left pupil. Both pupils reactive to light. Normal funduscopy is noted. Respirations are even lungs are clear to auscultation. No focal neural deficits. No weakness in the extremities are noted. Patient denies headache. Differential diagnosis includes adverse drug effect, exposure to chemical from hair dye, CVA. Patient has no focal neural deficits other abnormalities on exam. Patient is 33 weeks and has normal movement and no signs of DVT. Patient has a scopolamine patch behind the left ear. I suspect that is probably due to this scopolamine patch that we note dilation of the pupil. Discussed avoidance of rubbing the eye after touching the patch. Recommended washing hands well. When handling the patches. Discussed stopping use of the patch if side effect is bothersome to patient. Patient reported understanding of care and need for follow-up. Discharge Plan Discharge Patient Disposition: Home, Self-Care Clinical Impression: Adverse drug effect Qualifiers: Encounter type: initial encounter Qualified Code(s): T50.905A - Adverse effect of unspecified drugs, medicaments and biological substances, initial encounter Condition: Stable Prescriptions: No Action buprenorphine HCl 8 mg tablet, sublingual 8 mg SUBLINGUAL TID RF: 0 pantoprazole 40 mg tablet,delayed release (DR/EC) 40 mg PO DAILY Qty: 30 RF: 0 sennosides [Senna Lax] 8.6 mg Tablet 8.6 mg PO QPM RF: 0 clonazepam 0.5 mg Tablet 0.5 mg PO BID RF: 0 docusate sodium 100 mg Tablet 200 mg PO QPM RF: 0 aripiprazole 10 mg Tablet 10 mg PO QPM RF: 0 Prenatabs Rx 29 mg iron- 1 mg Tablet 1 tab PO QPM RF: 0 duloxetine 60 mg Capsule, Delayed Rel Sprinkle 60 mg PO DAILY RF: 0 famotidine 20 mg Tablet 20 mg PO DAILY RF: 0 Discharge Orders: Discharge Order (Routine); Ordered 02/29/20 Ordered By: Bharat Mathur Referrals: Lori Loya DO [Primary Care Provider] - Discharge Diet: Usual diet Discharge Activity: Increase activity as tolerated Activity Restrictions/Additional Instructions: Drink plenty of water with medications. Activity as tolerated. If you feel he can go without the scopolamine patch stop the use and you should see your eye return to normal. Follow-up with primary care in 1 week. Return to the ER for severe headache or other symptoms. Coding Level of Care Code ED Family Day Care Provider for Karlene Jon Exam Comprehensive
[2020-02-29 23:13] VITALS: BP 121/92; PULSE 95; RESP 16; O2SAT 97
[2020-02-29 23:18] VITALS: BP 117/80; PULSE 92; RESP 16; O2SAT 96
== END 2020-02-29 23:20 | disposition home or self-care (01) ==
PROVIDERS: Emergency Provider Nurse Practitioner Family; PCP Family Medicine
DX: T88.7XXA Unspecified adverse effect of drug or medicament, initial encounter (principal); T50.905A Adverse effect of unspecified drugs, medicaments and biological substances, initial encounter; F17.210 Nicotine dependence, cigarettes, uncomplicated
CPT/HCPCS: 12345; 99281

== ENCOUNTER 2020-03-05 16:40 | Outpatient (CLI) | payer MEDICARE, MEDICAID, SELFPAY ==
[2020-03-05] VITALS (7 sets, daily range): BP systolic 0–113; BP diastolic 0–69; PULSE 76–84; RESP 16; TEMP 36.9; BMI 27.5
--- NOTE | 2020-03-05 17:47 | US_ITS ---
WS: [id number] OB ultrasound for biophysical profile, 03/05/2020 Clinical Data: decreased movement Comparison: OB ultrasound, 02/10/2020 Findings: There is a single intrauterine . The heart rate is 147 beats per minute. The cervical length is 4.23 cm and it is closed. The placenta is posterior. The biophysical profile is 8 of 8 with normal scores for breathing, movement, posture and tone and amniotic fluid volume. US/US OB BPP wo NST [id number] Impression: 1. Single intrauterine . 2. Biophysical profile 8 of 8. 3. heart rate 147 beats per minute.
== END 2020-03-05 18:45 | disposition home or self-care (01) ==
LOC: OPOB 17:12 → OBGYN 17:12
PROVIDERS: PCP Family Medicine; Visit Provider Family Medicine
DX: O36.8190 Decreased fetal movements, unspecified trimester, not applicable or unspecified (principal); Z3A.00 Weeks of gestation of pregnancy not specified
CPT/HCPCS: 59025; 76819; 99211

== ENCOUNTER 2020-03-14 19:52 | Outpatient (CLI) | payer MEDICARE, MEDICAID, SELFPAY ==
[2020-03-14] VITALS (11 sets, daily range): BP systolic 0–119; BP diastolic 0–76; PULSE 73–86; TEMP 36.6; BMI 28.3
[2020-03-14 20:57] LABS: Specific Gravity, Urine 1.005 (1.005-1.030); Urine Appearance Clear (CLEAR); Urine Color Yellow (Yellow); pH Urine 6.5 (5-7)
[2020-03-14 20:58] LABS: Bilirubin Urine Neg (NEGATIVE); Blood Urine Neg (Negative); Glucose Urine UA Norm (Normal); Ketones Urine Negative (Negative); Leukocyte Esterase Urine Negative (Negative); Nitrate Urine Negative (Negative); Protein Urine Neg (Negative); Urobilinogen Urine Norm (Negative)
[2020-03-14 21:18] LABS: Squamous Epithelial Cell Urine 0-4 (0-5)
[2020-03-14 21:19] LABS: Add Urine Culture? No; Bacteria Urine TRACE; Transitional Epi Cells Urine 0-4 /hpf
--- NOTE | 2020-03-14 21:39 | US_ITS ---
WS: [id number] Obstetrical ultrasound, limited. HISTORY: Evaluate amniotic fluid index. Single intrauterine gestation with heart rate at 144 bpm. Fetus in vertex presentation. Placenta is p osterior. Placenta grade 1. Amniotic fluid index: 16.7 cm which is near the 50th percentile. US/US OB >= 14 weeks fetus [id number] IMPRESSION: Normal amniotic fluid volume.
== END 2020-03-14 22:16 | disposition home or self-care (01) ==
LOC: OPOB 19:54 → OBGYN 19:55
PROVIDERS: PCP Family Medicine; Visit Provider Obstetrics & Gynecology
DX: O12.00 Gestational edema, unspecified trimester (principal); Z3A.00 Weeks of gestation of pregnancy not specified
CPT/HCPCS: 76805; 81001; 99211

== ENCOUNTER 2020-03-18 16:29 | Outpatient (CLI) | payer MEDICARE, MEDICAID, SELFPAY ==
[2020-03-18 16:53] VITALS: BMI 28.8
[2020-03-18 17:23] VITALS: RESP 16; TEMP 36.8
[2020-03-18 17:34] LABS: Urine Color Yellow (Yellow)
[2020-03-18 17:35] LABS: Add Urine Microscopic? YES; Bilirubin Urine Neg (NEGATIVE); Blood Urine 3+ (Negative); Glucose Urine UA Norm (Normal); Ketones Urine Negative (Negative); Leukocyte Esterase Urine Trace (Negative); Nitrate Urine Negative (Negative); Protein Urine Neg (Negative); Specific Gravity, Urine 1.005 (1.005-1.030); Urobilinogen Urine Norm (Negative); pH Urine 7 (5-7)
[2020-03-18 17:44] LABS: Amphetamines Screen Urine Negative (Negative); Barbiturates Screen Urine Negative (Negative); Benzodiazepines Screen Urine Negative (Negative); Cocaine Screen Urine Negative (Negative); Opiate Screen Urine Negative (Negative); PCP Screen Urine Negative (Negative); THC Screen Urine Negative (Negative)
[2020-03-18] MEDS: bisacodyl 10 mg Supp PR (17:44)
[2020-03-18 17:55] LABS: Add Urine Culture? No; Bacteria Urine 2+; Mucus Urine TRACE; Squamous Epithelial Cell Urine 25-40 (0-5)
== END 2020-03-18 18:26 | disposition home or self-care (01) ==
LOC: OPOB 16:34 → OBGYN 16:39
PROVIDERS: Family Medicine; PCP Family Medicine; Visit Provider Obstetrics & Gynecology
DX: O26.899 Other specified pregnancy related conditions, unspecified trimester (principal); Z3A.00 Weeks of gestation of pregnancy not specified; K59.00 Constipation, unspecified; R10.9 Unspecified abdominal pain
CPT/HCPCS: 59025; 80306; 81001; 99211

== ENCOUNTER 2020-03-18 22:46 | Inpatient (IN) | payer MEDICARE, MEDICAID, SELFPAY ==
[2020-03-18] VITALS (7 sets, daily range): BP systolic 0–127; BP diastolic 0–79; PULSE 73–84; RESP 15–18; TEMP 36.6; BMI 28.8
[2020-03-18 23:47] LABS: Basophils % 0.2 %; Eosinophils # 0.1 10^3/uL (0.0-0.8); Eosinophils % 0.9 %; Hematocrit 38.7 % (37.0-47.0); Hemoglobin 12.8 g/dL (11.5-15.3); Lymphocytes # 2.2 10^3/uL (0.8-4.8); Lymphocytes % 19.4 %; Mean Corpuscular HGB Conc 33.1 g/dL (30.0-36.0); Mean Corpuscular Hemoglobin 29.6 pg (28.0-34.0); Mean Corpuscular Volume 89.6 fL (81-99); Mean Platelet Volume 10.7 fL (7.4-10.4); Monocytes # 0.5 10^3/uL (0.2-0.9); Monocytes % 4.8 %; Neutrophils # 8.3 10^3/uL (1.8-7.7); Neutrophils % 74.3 %; Nucleated Red Blood Cells % 0 %; Platelet Count 149 10^3/cmm (130-400); Red Blood Count 4.32 10^6/uL (4.1-5.3); Red Cell Distribution Width 13.2 % (12.1-15.1); White Blood Count 11.1 10^3/uL (4.0-10.0)
[2020-03-18] MEDS: lactated ringers 1,000 ML 999 ML IV (23:56)
[2020-03-19] VITALS (143 sets, daily range): BP systolic 0–154; BP diastolic 0–88; PULSE 62–104; RESP 10–24; TEMP 36.4–37; O2SAT 0–100
[2020-03-19] LABS: Amphetamines Screen Urine Negative (Negative); Barbiturates Screen Urine Negative (Negative); Benzodiazepines Screen Urine Negative (Negative); Cocaine Screen Urine Negative (Negative); Opiate Screen Urine Negative (Negative); PCP Screen Urine Negative (Negative); THC Screen Urine Negative (Negative)
[2020-03-19] MEDS: ampicillin 2,000 MG in sodium chloride 0.9% (plus) 50 ML 100 MG IV
[2020-03-19] MEDS: betamethasone susp 6 mg/mL 5 mL 12 MG IM (00:11)
[2020-03-19] MEDS: magnesium sulfate premix 4 GM/100 ML PREMIX IV (00:45)
--- NOTE | 2020-03-19 01:08 | ANES.PREANE2 ---
Pre-Anesthetic Assessment Pre-Anesthetic Assessment: Height/Weight: Height 1.73 m Weight 86.183 kg Temp Pulse Resp BP Pulse Ox 97.9 F 84 15 133/88 100 03/18/20 23:22 03/19/20 01:04 03/18/20 23:22 03/19/20 01:04 03/19/20 01:05 Preop Diagnosis: IUP Proposed Procedure: Lumbar Labor Epidural Was Beta Janak taken within 24 hours: N/A Social: Social History: Tobacco (5cig per day) and No alcohol Exam: Pre-Anes Outpt Exam: alert, oriented x 3, clear to auscultation bilaterally and regular rate & rhythm Airway: Submandibular: WNL Cervical ROM: WNL MP: 2 Dentition: Full History/ROS: No significant history except as noted and No significant complaints Pulmonary: Pulmonary: None reported CV/HEM: CV/HEM: None reported : : None reported Hepatic: Hepatic: None reported GI: GI: None reported Metabolic: Metabolic: None reported Musc/skel: Musc/skel: None reported (chronic pain) Neuropsych: Neuropsych: Anxiety Anesthetic Plan: ASA status: 2 Anesthesia: Regional (specify below) (epidural) Meds/Allergies Current Medications: Current Medications Generic Name Dose Route Start Last Admin Trade Name Freq PRN Reason Stop Dose Admin Ampicillin Sodium 2,000 mg/ 50 mls @ 100 mls/ hr 03/18/20 23:30 03/19/20 00:00 Sodium Chloride IV 100 mls/hr ONCE GRAHAM Administration Protocol Lactated Ringer's 1,000 mls @ 999 m ls/hr 03/18/20 23:36 03/18/20 23:56 Lactated Ringers IV 999 mls/hr .Q1H1M PRN Administration ANESTHESIA Ropivacaine 200 mg in 100 mls @ 13 mls/hr 03/18/20 23:45 03/19/20 01:05 Naropin Premix EPIDURAL 13 mls/hr .Q7H42M GRAHAM Administration PFSH Anesthesia PFSH: Medical History (Updated 03/08/20 @ 00:00 by ) Anxiety Arthritis Depression Hypokalemia MRSA (methicillin resistant staph aureus) culture positive Social History Smoking and tobacco status: current every day smoker Female Reproductive History: Date of last menstrual period: 07/16/19 : 6 Data Anesthesia CBC & Chem 7: 03/18/20 23:30 Other Labs: Laboratory Results - last 48 hr 03/18/20 03/18/20 23:30 23:30 WBC 11.1 H RBC 4.32 Hgb 12.8 Hct 38.7 MCV 89.6 MCH 29.6 MCHC 33.1 RDW 13.2 Plt Count 149 MPV 10.7 H Neut % (Auto) 74.3 Lymph % (Auto) 19.4 Pershing % (Auto) 4.8 Eos % (Auto) 0.9 Baso % (Auto) 0.2 Neut # (Auto) 8.3 H Lymph # (Auto) 2.2 Pershing # (Auto) 0.5 Eos # (Auto) 0.1 Baso # (Auto) 0.0 Nucleated RBC % (auto) 0 Nucleated RBCs # 0.0 Urine Opiates Screen Negative Ur Barbiturates Screen Negative Ur Phencyclidine Scrn Negative Ur Amphetamines Screen Negative U Benzodiazepines Scrn Negative Urine Cocaine Screen Negative U Marijuana (THC) Screen Negative Cardiac Studies: No Data to Display Anesthesia Procedures Date of Procedure: 03/19/20 Epidural: Time Out Performed: Yes Consents Signed: Procedure Consent Consent: from patient, risks and benefits reviewed and patient agrees to proceed Lumbar Level: L3-L4 Epidural position: sitting Epidural procedure: sterile prep of area, 1% lidocaine to numb the area (5), 18 g needle, negative for paresthesia passed, neg for paresthesia, test dose given, 1.5% xylocaine 1:200k epi (5), 0.2% Ropivacaine bolus ml (5), placed PCEA (5cc q10min x 3), no systemic response, sterile dressing applied, L.U.D. no apparent complications and 0.2% Ropiavacaine @ mls/hr (13) Additional Comments: Called to OB for epidural placement, pt evaluated and assessed for placement and explained procedure. Labs reviewed. Pt agrees to proceed. placed to 5cm in space and tolerated well. Bolused with epidural pump and VSS throughout per nursing chart. Last BP 116/60. Pain much improved.
[2020-03-19] MEDS: magnesium sulfate premix 20 GM/500 ML BAG IV (01:13)
[2020-03-19] MEDS: alum-mag-hydroxide-sime 30 mL UDC PO (01:13)
[2020-03-19 03:22] LABS: Magnesium Level (OB Only) 3.4 mg/dL (5.0-7.5)
[2020-03-19] MEDS: ampicillin 1,000 MG in sodium chloride 0.9% (plus) 50 ML 100 MG IV ×2 (03:24→07:35)
--- NOTE | 2020-03-19 05:52 | PC.NURSE ---
Dr. Light at bedside for AROM.
--- NOTE | 2020-03-19 05:58 | PC.NURSE ---
Dr. Light gives order to labor down at this time.
--- NOTE | 2020-03-19 08:41 | PM.DELIVERY ---
Delivery Note: Date of delivery: March 19, 2020 Pre-delivery diagnoses: labor Post-delivery diagnoses: delivered Procedure: Vacuum-assisted vaginal delivery Op report anesthesia: Epidural Delivering Physician: Jono Light M.D. Estimated blood loss (mL): 300 Pre-Delivery Course: 37 y/o female with an EGA AT 35+1 weeks with poor care. Seen community provider for a few visits. No record available. She had been in L&D earlier today and was found not to be in labor and was discharge after stool laxative/softener was prescribed. She then return to L&D in active labor. Delivery: The patient was noted to be complete and pushing, so was placed in the dorsal lithotomy position, prepped and draped in the usual sterile fashion for a vaginal delivery. noted to be OP presentation and heart tracing decreasing showing late variable decels. Pt. Noted to have epidural anesthesia. Decision was made to apply the Kiwi vacuum @ 35 weeks for the above indications. The mother was informed and asked for her consent for application of the vaccum. A roy had been used to insure the bladder was emptied. Adequate anesthesia was confirmed. The edges of the cup of the Kiwi vacuum were placed approximately 3cm from the anterior fontanelle, and just at the edge of the posterior fontanelle. The center of the cup was placed over the flexion point to ensure head flexion. The edges of the cup were swept with a finger to ensure that no maternal tissues were entrapped. After correct placement of the cup was confirmed, vacuum pressure was raised to 500-600 mmHg. Gentle traction along the axis of the pelvic curve down then up, was applied in concert with maternal pushing. 2 # applications. 1# pop-offs. After head delivered, the vacuum pressure released and was taken off the baby's head. Pt. Noted to have epidural anesthesia. At 0756 the patient delivered a viable 35 weeks Male in OP presentation, weighing weight 2895g g with scores of 8 and 9 at one and five minutes, respectively. The vertex was delivered vacuum assisted over mediolateral episiotomy. The patient was asked to push and the head delivered in the occipitus posterior position, over an intact perineum. A nuchal cord was checked and None noted. The anterior shoulder delivered easily and the posterior shoulder followed. The remainder of the was easily delivered and the oropharynx and nasopharynx was again bulb suctioned. The was noted to have spontaneous cry and spontaneous movement of all four extremities. The cord was clamped x 2 and cut and noted to have 2 arteries and one vein. The infant was passed to the [facility] where ped provider and nursing personnel were in attendance. The placenta delivered intact Spontaneously and the uterus Was explored. Pitocin 20 units in 1L LR was initiated. Examination of the cervix, vagina and perineal areas were inspected for lacerations and did not reveal any lacerations. A vaginal pack was then placed. Examination of the perineum showed No extension of episiotomy. The Episiotomy was repaired with 2-0 and 3-0 Vicryl in the normal fashion in a running non locking fashion to reapproximate the Episiotomy in layers. The vaginal pack was then removed. The patient tolerated this procedure well, and recovered in L&D with her infant To the OB sims. All sponge and needle counts were correct. Coding Level of Care Code Acute Business Development Consultant for [facility]
--- NOTE | 2020-03-19 08:47 | P.ANESASSM_ITS ---
Pre-Anesthetic Assessment Pre-Anesthetic Assessment: Height/Weight: Height 1.73 m Weight 86.183 kg Temp Pulse Resp BP Pulse Ox 98.2 F 80 15 102/50 0 L 03/19/20 05:37 03/19/20 08:35 03/19/20 05:37 03/19/20 08:35 03/19/20 07:35 Preop Diagnosis: IUP Social: Social History: Tobacco and No alcohol Exam: Pre-Anes Outpt Exam: alert, oriented x 3, clear to auscultation bilaterally and regular rate & rhythm Airway: Submandibular: WNL Cervical ROM: WNL MP: 2 Dentition: Full History/ROS: No significant history except as noted Pulmonary: Pulmonary: None reported CV/HEM: CV/HEM: None reported : : None reported Hepatic: Hepatic: None reported GI: GI: None reported Metabolic: Metabolic: None reported Musc/skel: Musc/skel: OA/DJD Neuropsych: Neuropsych: Anxiety and Depression Anesthetic Plan: ASA status: 2 Anesthesia: Anesthesia Evaluation, Eval. for regional block and General (RSI, GETA if the epidural does not provide sufficiant anesthesia) Risk of > 500 ml blood loss (7ml/kg in children): No Meds/Allergies Current Medications: Current Medications Generic Name Dose Route Start Last Admin Trade Name Freq PRN Reason Stop Dose Admin Al Hydrox/Mg [place] x/Simethicone 30 ml 03/18/20 23:21 03/19/20 01:13 Maalox PO 30 ml Q4H PRN Administration INDIGESTION Ampicillin Sodium 1,000 mg/ 50 mls @ 100 mls/ hr 03/19/20 03:27 03/19/20 07:35 Sodium Chloride IV 100 mls/hr Q4H GRAHAM Administration Protocol Ampicillin Sodium 2,000 mg/ 50 mls @ 100 mls/ hr 03/18/20 23:30 03/19/20 00:00 Sodium Chloride IV 100 mls/hr ONCE GRAHAM Administration Protocol Lactated Ringer's 1,000 mls @ 999 m ls/hr 03/18/20 23:36 03/18/20 23:56 Lactated Ringers IV 999 mls/hr .Q1H1M PRN Administration ANESTHESIA Ropivacaine 200 mg in 100 mls @ 13 mls/hr 03/18/20 23:45 03/19/20 01:05 Naropin Premix EPIDURAL 13 mls/hr .Q7H42M GRAHAM Administration PFSH Anesthesia PFSH: Medical History Anxiety Arthritis Depression Hypokalemia MRSA (methicillin resistant staph aureus) culture positive Social History Smoking and tobacco status: current every day smoker Female Reproductive History: Date of last menstrual period: 07/16/19 G ravida: 6 Data Anesthesia CBC & Chem 7: 03/18/20 23:30 Other Labs: Laboratory Results - last 48 hr 03/18/20 03/18/20 03/19/20 23:30 23:30 02:34 WBC 11.1 H RBC 4.32 Hgb 12.8 Hct 38.7 MCV 89.6 MCH 29.6 MCHC 33.1 RDW 13.2 Plt Count 149 MPV 10.7 H Neut % (Auto) 74.3 Lymph % (Auto) 19.4 Coal % (Auto) 4.8 Eos % (Auto) 0.9 Baso % (Auto) 0.2 Neut # (Auto) 8.3 H Lymph # (Auto) 2.2 Coal # (Auto) 0.5 Eos # (Auto) 0.1 Baso # (Auto) 0.0 Nucleated RBC % (auto) 0 Nucleated RBCs # 0.0 Magnesium 3.4 L* Urine Opiates Screen Negative Ur Barbiturates Screen Negative Ur Phencyclidine Scrn Negative Ur Amphetamines Screen Negative U Benzodiazepines Scrn Negative Urine Cocaine Screen Negative U Marijuana (THC) Screen Negative Cardiac Studies: No Data to Display
[2020-03-19] MEDS: sodium chloride 0.9% 1,000 ML 30 ML IV (09:21)
--- NOTE | 2020-03-19 09:36 | P.PN_ITS ---
Subjective Subjective: Interval history: patient is status post vacuum assisted vaginal delivery at 35 weeks. Desire permanent sterilization after delivery Vitals/I&O/Wt Last Vital Signs Temp 97.6 F 03/19/20 09:16 Pulse 62 03/19/20 09:16 Resp 18 03/19/20 09:16 BP 102/60 03/19/20 09:16 Pulse Ox 99 03/19/20 09:16 03/18/20 03/19/20 03/19/20 22:59 06:59 14:59 Intake Total 50 / 50 Output Total 405 / 405 Balance -355 / -355 Weight last 48 hrs Weight 86.183 kg Physical Exam Narrative: EXAM NARRATIVE: GA; alert and oriented x 3 HEENT: normal Breasts: engorged Nipples - skin intact Lungs; clear to auscultation Heart: regular rhythm, no murmurs. Abd: Appropriately tender. BS+. Uterine fundus below umbilicus. No Fundal Tenderness. Perineum: normal lochia. Extremities: no edema, no cyanosis, no tenderness. Urinary Catheter Management^: Patel: Cath Placed During This Visit: yes Urinary Catheter Date of Insertion: 03/19/20 Urinary Catheter Time of Insertion: 01:40 Data : 03/18/20 23:30 A&P Assessment and plan (1) , delivered: 39-year-old female status post spontaneous vaginal delivery desire permanent sterilization requesting tubal ligation. The patient was counseled regarding all methods of contraception, risk and complications. She elected to continue to proceed with the tubal ligation as planned. partial salpingectomy is associated with lower failure rates than interval tubal occlusions done via laparoscopy. She was counseled regarding the procedure, alternative, risks and complications. Complications of tubal sterilization include problems like but not limited to anesthesia, hemorrhage, organ damage, and mortality. Although pregnancies after a sterilization procedure are rare, there is substantial risk that any post-sterilization p regnancy could be ectopic. The overall failure rate is on the order of 0.5% in the first year but a study showed that sterilization failures vary by both age at sterilization and the method used. The study also found that the risks of accumulate over time, and that for women aged 18 to 27 years, failure rates can be as high as 5% with bipolar coagulation and the spring clip. The patient was informed of the risks and benefits of the procedure. Risks included but were not limited to bleeding, infection, and injury to internal organs. The patient was counseled on the risk of sterilization failure. The patient was informed that in the event a occurs the risk of ectopic is increased. The patient was counseled that bilateral tubal ligation is intended to be permanent and nonreversible. She was also counseled that there are nonpermanent forms of control available to her. The patient expressed understanding of the risks involved, all questions were answered, and the patient consented to the procedure. Status: Acute Attestations Medical Necessity Statement*: in my professional opinion per admitting diagnosis Coding Level of Care Code Acute Hand Splitter for [facility] Fwd Diagnoses , delivered O80
--- NOTE | 2020-03-19 10:27 | P.OP_ITS ---
Operative Report Date of procedure: March 19, 2020 Pre-op Diagnosis: status post vacuum assisted vaginal delivery. desire permanent sterilizatio Post-op diagnosis: same Post-op Findings: normal left the right fallopian tube Procedure Done: bilateral tubal ligation via modified Desirae Specimens removed/disposition: left and right fallopian tube Surgeon: Jono Light Anesthesia: Epidural Estimated blood loss (mL): 5 IV fluids (mL): 300 Complications: none Condition: stable Disposition: PACU Brief History: 39-year-old female is status post vacuum-assisted vaginal delivery Procedure: After assuring informed consent. The patient was informed of the risks and benefits of the procedure. Risks included but were not limited to bleeding, infection, and injury to internal organs. The patient was counseled on the risk of sterilization failure. The patient was informed that in the event a occurs the risk of ectopic is increased. The patient was counseled that bilateral tubal ligation is intended to be permanent and n onreversible. She was also counseled that there are nonpermanent forms of control available to her. The patient expressed understanding of the risks involved, all questions were answered, and the patient consented to the procedure. The patient was taken to the operating room and general anesthesia administered. Time-out procedure was performed. A small, transverse, infraumbilical skin incision was made with a scalpel, and the incision was carried down through the underlying fascia until the peritoneum was identified and entered. The left fallopian tube was identified, brought into the incision and grasped with a Clement clamp. The tube was then followed out to the fimbria. An avascular midsection of the fallopian tube was grasped with a [employer] clamp and brought into a knuckle. The tube was doubly ligated with an O-plain suture and transected. The specimen was sent to pathology. Excellent hemostasis was noted, and the tube was returned to the abdomen. The same procedure was perfo rmed on the opposite fallopian tube. The fascia was then closed with O-Vicryl in a single layer. The skin was closed with 3-O Monocryl in a subcuticular fashion, and adhesive Xepherm. The patient tolerated the procedure well. Needle and sponge counts were correct times 3.
--- NOTE | 2020-03-19 10:33 | SUR.PHASEI ---
1032 PATIENT TO PACU AT THIS TIME FROM OR. NO DISTRESS, TALKING. DENIES PAIN. 1 INCISIONS TO ABDOMEN, CDI.
--- NOTE | 2020-03-19 10:37 | ANE.PACU2 ---
Inpatient post-anesthesia follow up: Airway intact: Yes Vital signs: Temperature 98.6 F Pulse Rate 75 Respiratory Rate 19 Blood Pressure 105/67 Pulse Oximetry 100 Oxygen Delivery Me thod Room Air Oxygen Flow Rate Fraction of Inspir ed Oxygen Hydration adequate: Yes Nausea and vomiting: No Pain level: 4 Pain level: IV toradol given Mental status: Baseline
--- NOTE | 2020-03-19 10:58 | SUR.PHASEI ---
1043 PATIENT TO OB AT THIS TIME. NO DISTRESS. RR EVEN AND UNLABORED. PWD. PAIN 01/27. INCISION TO ABDOMEN, CDI.
--- NOTE | 2020-03-19 11:00 | PC.NURSE ---
Pt to floor from OR. Transferred to bed with assistance. Oriented to room/call light. Instructed not to get out of bed without assistance. Discussed pain control, baby care, self care.
--- NOTE | 2020-03-19 11:45 | PC.NURSE ---
EPIDURAL CATHETER REMOVED IN OR, PER REPORT FROM PACU ASYMPTOMATIC
[2020-03-19] MEDS: buprenorphine-naloxone 4-1 mg Film 1 EACH SUBLINGUAL ×3 (11:48→21:10)
[2020-03-19] MEDS: acetaminophen 325 mg Tablet 650 MG PO (13:44)
[2020-03-19] MEDS: docusate sodium 100 mg Capsule PO (18:02)
[2020-03-19] MEDS: CLONazepam 0.5 mg Tablet PO (18:02)
[2020-03-19] MEDS: duloxetine 60 mg Capsule PO (21:10)
[2020-03-19] MEDS: sennosides 8.6 mg Tablet PO (21:12)
[2020-03-19 23:57] LABS: Hematocrit 31.5 % (37.0-47.0); Hemoglobin 10.4 g/dL (11.5-15.3); Mean Corpuscular Hemoglobin 29.8 pg (28.0-34.0); Mean Corpuscular Volume 90.3 fL (81-99); Mean Platelet Volume 11.2 fL (7.4-10.4); Platelet Count 165 10^3/cmm (130-400); Red Blood Count 3.49 10^6/uL (4.1-5.3); Red Cell Distribution Width 13.4 % (12.1-15.1); White Blood Count 15.9 10^3/uL (4.0-10.0)
[2020-03-20] MEDS: acetaminophen 325 mg Tablet 650 MG PO (01:18)
[2020-03-20] MEDS: alum-mag-hydroxide-sime 30 mL UDC PO ×2 (01:18→20:04)
[2020-03-20 01:27] VITALS: BP 102/67; PULSE 81; RESP 16; TEMP 36.7; O2SAT 99
[2020-03-20 04:00] VITALS: BP 102/65; PULSE 74; RESP 16; TEMP 36.6; O2SAT 96
[2020-03-20 05:00] LABS: Hematocrit 33.4 % (37.0-47.0); Mean Corpuscular HGB Conc 32.9 g/dL (30.0-36.0); Mean Corpuscular Hemoglobin 29.3 pg (28.0-34.0); Mean Corpuscular Volume 89.1 fL (81-99); Mean Platelet Volume 10.7 fL (7.4-10.4); Platelet Count 172 10^3/cmm (130-400); Red Blood Count 3.75 10^6/uL (4.1-5.3); Red Cell Distribution Width 13.3 % (12.1-15.1); White Blood Count 16.4 10^3/uL (4.0-10.0)
[2020-03-20 06:12] VITALS: PULSE 75; RESP 18; O2SAT 96
--- NOTE | 2020-03-20 08:17 | PC.NURSE ---
Patient does not have an IV at this time.
[2020-03-20] MEDS: docusate sodium 100 mg Capsule PO ×2 (09:10→18:55)
[2020-03-20] MEDS: prenatal vitamin Capsule 1 CAP PO (09:11)
[2020-03-20] MEDS: CLONazepam 0.5 mg Tablet PO ×2 (09:11→20:04)
[2020-03-20] MEDS: buprenorphine-naloxone 4-1 mg Film 1 EACH SUBLINGUAL ×3 (09:21→21:45)
[2020-03-20 10:17] VITALS: BP 123/76; PULSE 63; RESP 18; TEMP 36.6; O2SAT 98
--- NOTE | 2020-03-20 12:19 | PM.PN ---
Subjective Subjective: Interval history: 39-year-old female status post vacuum assisted vaginal delivery and bilateral tubal ligation day 1. Refers feeling better, pain well under control, tolerating diet. Vitals/I&O/Wt Last Vital Signs Temp 97.9 F 03/20/20 10:17 Pulse 63 03/20/20 10:17 Resp 18 03/20/20 10:17 BP 123/76 03/20/20 10:17 Pulse Ox 98 03/20/20 10:17 03/19/20 03/20/20 03/20/20 22:59 06:59 14:59 Intake Total 1000 / 1050 Balance 1000 / 345 Weight last 48 hrs Weight 86.183 kg Physical Exam Narrative: EXAM NARRATIVE: GA; alert and oriented x 3 HEENT: normal Breasts: engorged Nipples - skin intact Lungs; clear to auscultation Heart: regular rhythm, no murmurs. Abd: Appropriately tender. BS+. Uterine fundus below umbilicus. No Fundal Tenderness, incision clean and dry, no redness, pain or edema.. Perineum: normal lochia. Extremities: no edema, no cyanosis, no tenderness. Urinary Catheter Management^: Patel: Cath Placed During This Visit: yes, but has since been removed by the nurse Urinary Catheter Date of Insertion: 03/19/20 Urinary Catheter Time of Insertion: 10:00 Date Urinary Catheter Removed: 03/19/20 Time Urinary Catheter Discontinued: 10:26 Data : 03/20/20 04:55 A&P Assessment and plan (1) labor in third trimester with delivery: 39-year-old female is status post vacuum assisted vaginal delivery infant, status post bilateral tubal ligation date 1. She is afebrile and hemodynamically stable. Tolerating diet well. Ambulating without difficulty. Pain well under control. Plan: Continue postop observation. Status: Acute Qualifiers: Fetus number: single or unspecified fetus Qualified Code(s): O60.14X0 - labor third trimester with delivery third trimester, not applicable or unspecified Attestations Medical Necessity Statement*: In my professional opinion for admitting diagnosis Coding Level of Care Code Acute Crusher Setter for [facility] Diagnoses labor in third trimester with delivery O60.14X0 Fetus number: single or unspecified fetus
[2020-03-20 18:56] VITALS: BP 118/76; PULSE 82; RESP 18; O2SAT 98
[2020-03-20 20:00] VITALS: BP 109/69; PULSE 77; RESP 17; TEMP 36.7; O2SAT 99
[2020-03-20] MEDS: duloxetine 60 mg Capsule PO (21:45)
[2020-03-20] MEDS: ARIPiprazole 10 mg Tablet PO (21:46)
[2020-03-21] VITALS: BP 107/68; PULSE 70; RESP 16; TEMP 36.7; O2SAT 97
[2020-03-21 04:27] VITALS: BP 105/65; PULSE 72; RESP 16; TEMP 36.6; O2SAT 97
[2020-03-21] MEDS: prenatal vitamin Capsule 1 CAP PO (09:35)
[2020-03-21] MEDS: CLONazepam 0.5 mg Tablet PO (09:35)
[2020-03-21] MEDS: benzocaine-menthol 78 gm Canister 1 SPRAY TOPICAL (09:35)
[2020-03-21] MEDS: docusate sodium 100 mg Capsule PO (09:35)
[2020-03-21] MEDS: buprenorphine-naloxone 4-1 mg Film 1 EACH SUBLINGUAL ×2 (09:35→14:51)
[2020-03-21 09:38] VITALS: BP 103/59; PULSE 80; RESP 15; TEMP 36.5
--- NOTE | 2020-03-21 13:23 | PC.RESP ---
SMOKING CESSATION INFORMATION SENT TO PATIENT.
--- NOTE | 2020-03-21 14:43 | P.DS_ITS ---
Discharge Providers SHIPPING AND RECEIVING COORDINATOR Date of Admission: 03/18/20 22:46 Date of Discharge: 03/21/20 Attending Provider at Admission: Jono Light MD Attending Provider at Discharge: Jono Light MD Primary Care Provider: Lori Loya DO Diagnoses at Discharge Discharge Diagnosis (1) labor in third trimester with delivery: Status: Acute Qualifiers: Fetus number: single or unspecified fetus Qualified Code(s): O60.14X0 - labor third trimester with delivery third trimester, not applicable or unspecified Reason for Visit Reason for Visit: abd pain Hospital Course 2 Hospital Course: 39-year-old female with poor care with an estimated gestational age of 35 weeks, came to labor and delivery complaining of contractions. Upon evaluation she was noted to have 6 cm dilation with regular contractions and was admitted with labor. She progressed to have a vacuum assisted vaginal delivery due to nonreassuring status and OP presentation. She delivered a male , over a mediolateral episiotomy Apgars 8/9 weight 2895g. She had signed a consent for bilateral tubal ligation. A bilateral tubal ligation via modified Hammond was performed without complications. Postop/ recovery was uneventful. She is afebrile hemodynamically stable. Tolerating diet well. Ambulating without difficulty. Information Peripartum Data: Delivery Method: Vaginal Physical Exam Narrative: EXAM NARRATIVE: GA; alert and oriented x 3 HEENT: normal Breasts: engorged Nipples - skin intact Lungs; clear to auscultation Heart: regular rhythm, no murmurs. Abd: Appropriately tender. BS+. Uterine fundus below umbilicus. No Fundal Tenderness, incision minimal tenderness, incision clean and dry, no redness, pain or edema. Perineum: normal lochia. Extremities: no edema, no cyanosis, no tenderness. Urinary Catheter Management^: Patel: Cath Placed During This Visit: yes, but has since been removed by the nurse Urinary Catheter Date of Insertion: 03/19/20 Urinary Catheter Time of Insertion: 10:00 Date Urinary Catheter Removed: 03/19/20 Time Urinary Catheter Discontinued: 10:26 Discharge Data Data Completed and Pending: Completed Studies During Hospitalization Category Date Time Status Pathology: Surgic al [PTH] Routine Pth 03/19/20 10:41 Completed Laboratory Tests 03/18/20 03/18/20 03/19/20 23:30 23:30 23:25 WBC 11.1 H 15.9 H Hgb 12.8 10.4 L Hct 38.7 31.5 L Plt Count 149 165 Urine Opiates Scre en Negative Ur Barbiturates Sc reen Negative Ur Phencyclidine S crn Negative Ur Amphetamines Sc reen Negative U Benzodiazepines Scrn Negative Urine Cocaine Scre en Negative U Marijuana (THC) Screen Negative 03/20/20 04:55 WBC 16.4 H Hgb 11.0 L Hct 33.4 L Plt Count 172 Urine Opiates Scre en Ur Barbiturates Sc reen Ur Phencyclidine S crn Ur Amphetamines Sc reen U Benzodiazepines Scrn Urine Cocaine Scre en U Marijuana (THC) Screen Procedures Performed: Vacuum-assisted vaginal delivery, bilateral tubal ligation via modified Hammond Vitals: Last Vital Signs Temp 97.7 F 03/21/20 09:38 Pulse 80 03/21/20 09:38 Resp 15 03/21/20 09:38 BP 103/59 03/21/20 09:38 Pulse Ox 97 03/21/20 04:27 Discharge Plan Discharge Patient Disposition: Home, Self-Care Condition: Stable Prescriptions: New docusate sodium 100 mg Capsule 100 mg PO BID Qty: 60 RF: 0 ibuprofen 800 mg Tablet 800 mg PO TID Qty: 60 RF: 0 Continued buprenorphine HCl 8 mg tablet, sublingual 8 mg SUBLINGUAL TID RF: 0 sennosides [Senna Lax] 8.6 mg Tablet 8.6 mg PO QPM RF: 0 clonazepam 0.5 mg Tablet 0.5 mg PO BID RF: 0 aripiprazole 10 mg Tablet 10 mg PO QPM RF: 0 Prenatabs Rx 29 mg iron- 1 mg Tablet 1 tab PO QPM RF: 0 duloxetine 60 mg Capsule, Delayed Rel Sprinkle 60 mg PO DAILY RF: 0 Discharge Orders: Discharge Order (Routine); Ordered 03/21/20 Ordered By: Jono Light Referrals: [facility] [Outside] Discharge Diet: Regular Discharge Activity: Increase activity as tolerated Patient Instructions: Clonazepam (By mouth), Vitamins (By mouth), Laxative, Stimulant (By mouth), Aripiprazole (By mouth), Duloxetine (By mouth), Buprenorphine (By mouth), OB Discharge Report, OB Food/Drug Interaction Guide, OB Proud Parent Packet, OB Vaginal Deliveries Activity Restrictions/Additional Instructions: Pelvic rest for 6 weeks (no sex, no tampons, no vaginal douches). Return to the emergency room if any fever, increased bleeding or pain. Discharge Attestations SHIPPING AND RECEIVING COORDINATOR Time Spent in Discharge Care*: greater than 30 min Coding Level of Care Code Acute Marketing Technology Coordinator for [facility] Diagnoses labor in third trimester with delivery O60.14X0 Fetus number: single or unspecified fetus
[2020-03-21 16:26] VITALS: BP 118/72; PULSE 76; RESP 16; TEMP 36.6
== END 2020-03-21 16:27 | disposition home or self-care (01) | DRG 798 ==
LOC: OPOB 22:57 → OBGYN 22:57 → OPOB 03-19 00:08 → OBGYN 03-19 00:08
PROVIDERS: Admitting Provider Obstetrics & Gynecology; PCP Family Medicine; Visit Provider Obstetrics & Gynecology
PROC: 10D07Z6 Extraction of Products of Conception, Vacuum, Via Natural or Artificial Opening (ICD-10-PCS; CPT 58605; principal; 2020-03-19 09:30)
DX: O60.14X0 Preterm labor third trimester with preterm delivery third trimester, not applicable or unspecified (principal); Z37.0 Single live birth; Z3A.35 35 weeks gestation of pregnancy; O76 Abnormality in fetal heart rate and rhythm complicating labor and delivery; Z30.2 Encounter for sterilization
CPT/HCPCS: 12345; 36415; 51702; 59025; 59409; 80306; 81001; 83735; 85025; 85027; 88302; 96372; 99211; J0290; J0573; J0690; J0702; J1885; J2001; J2795; J3475; J3490; J7030

== ENCOUNTER 2020-04-13 00:12 | Emergency (ER) | payer MEDICARE, MEDICAID, SELFPAY ==
[2020-04-13 00:19] VITALS: BP 113/87; PULSE 84; RESP 16; TEMP 36.8; O2SAT 100; BMI 23.6
--- NOTE | 2020-04-13 00:30 | ED_ITS ---
HPI - Female Genitourinary General: Chief complaint: Fever Stated complaint: POST DELIVERY COMPLICATIONS Time Seen by Provider: 04/13/20 00:15 Source: patient Mode of arrival: ambulatory Limitations: no limitations History of Present Illness: HPI Narrative: Patient is a 39-year-old female here at approximately 3 to 4 weeks for main complaint of a temperature reading of 102 at home. Patient is afebrile upon arrival. She tells me since her vaginal delivery she has been having mild brown vaginal discharge with small amounts of clots. She states this is not changed at all since delivery. She denies vaginal odor. She is not having abdominal or pelvic pain. She reports mild nausea without vomiting. Patient denies dysuria, frequency, urgency, hematuria. She is having normal bowel movements. Patient states she has resumed sexual activity with her however is concerned he may be having extramarital encounters. She has not had any dyspareunia. She is requesting STD testing. Associated symptoms: Reports nausea; Deny abdominal pain or headache(s) Date of Last Menstrual Period: 07/16/19 Review of Systems Const: Reports: fever(s); Denies: chills, body aches, change in appetite, change in weight, fatigue or malaise Card: Denies: chest pain Resp: Denies: dyspnea GI: Reports: nausea; Denies: abdominal pain, vomiting, diarrhea or change in bowel habits : Reports: vaginal bleeding (brown discharge since vaginal delivery); Denies: flank pain, difficulty voiding, dysuria, urinary frequency, urinary urgency, genital lesions, genital pruritis, vaginal odor or pelvic pain Musc: Denies: neck pain or back pain Skin/Breast: Denies: rash Neuro: Denies: headache(s) PFSH ED PFSH: Medical History (Updated 04/13/20 @ 01:53 by TREY Correia) Anxiety Arthritis Depression Hypokalemia MRSA (methicillin resistant staph aureus) culture positive Family History (Updated 03/31/20 @ 10:11 by Marialuisa Lamas RN) Grandmother Breast cancer maternal, DX in her 60's Diabetes maternal Father Colon cancer Sister Clotting disorder Denies family history of Hyperlipidemia Anesthesia complication Bleeding disorder Hypertension Stroke Social History (Updated 03/31/20 @ 10:12 by Marialuisa Lamas RN) Smoking and tobacco status: current every day smoker cigarettes [ Other cigarette details: 5/day ] Alcohol intake: never Other details 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 Female Reproductive History: Date of last menstrual period: 07/16/19 Physical Exam Const: COMMON NORMALS: no acute distress, average body habitus, patient oriented x3, no limitations, healthy appearing, alert and well nourished Resp: COMMON NORMALS: normal respiratory effort and clear to auscultation bilaterally AUSCULTATION: clear to auscultation bilaterally Cardio: COMMON NORMALS: regular rate and regular rhythm RATE: regular rate RHYTHM: regular rhythm GI: COMMON NORMALS: Normal to inspection, nondistended, normoactive bowel sounds present, Soft to palpation, non-tender, No hepatosplenomegaly present and no masses PALPATION: Yes Soft to palpation and Yes No hepatosplenomegaly present : COMMON NORMALS: Yes no CVA tenderness BLADDER/KIDNEY EXAM: Yes no CVA tenderness EXTERNAL FEMALE EXAM: Yes normal appearance of the urethra SPECULUM EXAM - VAGINA: Yes Vaginal discharge present (pt with brown and yellow mucous discharge present) SPECULUM EXAM - CERVIX: Yes Other cervical findings present (cervix does not appear friable/no cervicitis ) Back/Pelvis: COMMON NORMALS: no CVA tenderness Extremity: COMMON NORMALS: normal to inspection Neuro: COMMON NORMALS: patient oriented x3 SENSORIUM/ORIENTATION: Yes alert Skin: COMMON NORMALS: no rashes or lesions noted GENERAL SKIN EXAM: no rashes or lesions noted Course Vital Signs: Vital signs: Vital Signs Temperature 98.3 F 04/13/20 00:19 Pulse Rate 84 04/13/20 00:19 Respiratory Rate 16 04/13/20 00:19 Blood Pressure 113/87 04/13/20 00:19 Pulse Oximetry 100 04/13/20 00:19 MDM - Female MDM Narrative: Medical decision making narrative: Patient CBC looks good. CMP showing mildly elevated LFTs. Patient is not having any abdominal pain. She d oes admit to a previous IV drug use history however states she was tested for hepatitis during and her panel was negative. Recommend she get these labs repeated in 2 weeks through PCP. Her UA looks suspicious for a UTI. This will be cultured. Wet prep showing WBCs and bacteria but is negative for BV, trichomoniasis, yeast. Patient states she wants to hold off on treatment for gonorrhea and chlamydia until cultures return. Recommend she follow-up with OB soon as possible. Return to ED precautions given regarding worsening pain, discharge, continued fevers. Lab Data: Labs: Lab Results 04/13/20 04/13/20 04/13/20 Range/Units 00:45 01:16 01:16 WBC 8.2 (4.0-10.0) 10^3/ uL RBC 4.55 (4.1-5.3) 10^6/u L Hgb 13.2 (11.5-15.3) g/dL Hct 40.4 (37.0-47.0) % MCV 88.8 (81-99) fL MCH 29.0 (28.0-34.0) pg MCHC 32.7 (30.0-36.0) g/dL RDW 11.9 L (12.1-15.1) % Plt Count 239 (130-400) 10^3/c mm MPV 9.8 (7.4-10.4) fL Neut % (Auto) 64.6 % Lymph % (Auto) 28.1 % [place] % (Auto) 4.9 % Eos % (Auto) 1.8 % Baso % (Auto) 0.5 % Neut # (Auto) 5.3 (1.8-7.7) 10^3/u L Lymph # (Auto) 2.3 (0.8-4.8) 10^3/u L [place] # (Auto) 0.4 (0.2-0.9) 10^3/u L Eos # (Auto) 0.2 (0.0-0.8) 10^3/u L Baso # (Auto) 0.0 (0.0-0.1) 10^3/u L Nucleated RBC % (a uto) 0 % Nucleated RBCs # 0.0 /100WBC Sodium 139 (136-145) mmol/L Potassium 3.6 (3.5-5.1) mmol/L Chloride 103 (98-107) mmol/L Carbon Dioxide 27 (22-29) mmol/L Anion Gap 12.6 (5-19) BUN 7 (6-20) mg/dL Creatinine 0.8 (0.5-0.9) mg/dL GFR Calculation 80.7 L (90-130) mL/min Glucose 94 (65-115) mg/dL Calculated Osmolal ity 284 L (285-295) mOsm/k g Calcium 9.1 (8.5-10.5) mg/dL Total Bilirubin 0.2 (0.15-1.2) mg/dL AST 37 H (0-32) U/L ALT 49 H (0-33) U/L Alkaline Phosphata se 184 H (35-105) IU/L Total Protein 6.3 L (6.6-8.7) g/dL Albumin 3.8 (3.5-5.2) g/dL Globulin 2.5 (1.3-4.6) g/dL Urine Color Yellow (Yellow) Urine Appearance Sl hazy (CLEAR) Urine pH 6 (5-7) Ur Specific Gravit y 1.005 (1.005-1.030) Urine Protein Neg (Negative) Urine Glucose (UA) Norm (Normal) Urine Ketones Negative (Negative) Urine Blood 3+ H (Negative) Urine Nitrate Negative (Negative) Urine Bilirubin Neg (NEGATIVE) Urine Urobilinogen Norm (Negative) mg/dL Ur Leukocyte Shauna ase 1+ H (Negative) Urine RBC 5-10 H (0-2) /hpf Urine WBC 0-4 H (0-5) /hpf Ur Squamous Epith Cells 5-10 H (0-5) Amorphous Sediment Not Reportable Urine Bacteria 2+ H (NONE) Discharge Plan Discharge Patient Disposition: Home, Self-Care Clinical Impression: Acute cystitis with hematuria, Concern about STD in female without diagnosis, History of vaginal discharge Condition: Stable Prescriptions: New Macrobid 100 mg capsule 100 mg PO BID 7 Days Qty: 14 RF: 0 No Action buprenorphine HCl 8 mg tablet, sublingual 8 mg SUBLINGUAL TID RF: 0 ibuprofen 800 mg Tablet 800 mg PO TID Qty: 60 RF: 0 docusate sodium 100 mg Capsule 100 mg PO BID Qty: 60 RF: 0 sennosides [Senna Lax] 8.6 mg Tablet 8.6 mg PO QPM RF: 0 clonazepam 0.5 mg Tablet 0.5 mg PO BID RF: 0 aripiprazole 10 mg Tablet 10 mg PO QPM RF: 0 Prenatabs Rx 29 mg iron- 1 mg Tablet 1 tab PO QPM RF: 0 duloxetine 60 mg Capsule, Delayed Rel Sprinkle 60 mg PO DAILY RF: 0 Discharge Orders: Discharge Order (Routine); Ordered 04/13/20 Ordered By: Emily Lopez Referrals: Lori Loya DO [Primary Care Provider] - Activity Restrictions/Additional Instructions: As discussed if your vaginal swabs for gonorrhea/chlamydia come back positive you should receive a phone call. In a few days you may contact medical records for your results. Urine today looked suspicious for a urinary tract infection- you have been placed on antibiotics for this. As discussed you had mildly elevated liver enzymes that I would like repeated through primary care in 2 weeks. Return to the emergency department for worsening fevers, abdominal pain, worsening vaginal discharge, generally feeling ill, or any other concerns you may have. Coding Level of Care Code ED Rv Body Mechanic for [facility] Exam Detailed
[2020-04-13 01:14] LABS: Add Urine Culture? Yes; Add Urine Microscopic? YES; Bacteria Urine 2+; Bilirubin Urine Neg (NEGATIVE); Blood Urine 3+ (Negative); Glucose Urine UA Norm (Normal); Ketones Urine Negative (Negative); Leukocyte Esterase Urine 1+ (Negative); Nitrate Urine Negative (Negative); Protein Urine Neg (Negative); Specific Gravity, Urine 1.005 (1.005-1.030); Urine Appearance SL Hazy (CLEAR); Urine Color Yellow (Yellow); Urobilinogen Urine Norm (Negative); WBC Urine 0-4 /hpf (0-5); pH Urine 6 (5-7)
[2020-04-13 01:32] LABS: Basophils % 0.5 %; Eosinophils # 0.2 10^3/uL (0.0-0.8); Eosinophils % 1.8 %; Hematocrit 40.4 % (37.0-47.0); Hemoglobin 13.2 g/dL (11.5-15.3); Lymphocytes # 2.3 10^3/uL (0.8-4.8); Lymphocytes % 28.1 %; Mean Corpuscular HGB Conc 32.7 g/dL (30.0-36.0); Mean Corpuscular Volume 88.8 fL (81-99); Mean Platelet Volume 9.8 fL (7.4-10.4); Monocytes # 0.4 10^3/uL (0.2-0.9); Monocytes % 4.9 %; Neutrophils # 5.3 10^3/uL (1.8-7.7); Neutrophils % 64.6 %; Nucleated Red Blood Cells % 0 %; Platelet Count 239 10^3/cmm (130-400); Red Blood Count 4.55 10^6/uL (4.1-5.3); Red Cell Distribution Width 11.9 % (12.1-15.1); White Blood Count 8.2 10^3/uL (4.0-10.0)
[2020-04-13 01:40] LABS: Alanine Aminotransferase 49 U/L (0-33); Albumin Level 3.8 g/dL (3.5-5.2); Alkaline Phosphatase 184 IU/L (35-105); Anion Gap 12.6 (5-19); Aspartate Amino Transferase 37 U/L (0-32); Blood Urea Nitrogen 7 mg/dL (6-20); Calcium 9.1 mg/dL (8.5-10.5); Carbon Dioxide 27 mmol/L (22-29); Chloride 103 mmol/L (98-107); Globulin 2.5 g/dL (1.3-4.6); Glomerular Filtration Rate 80.7 mL/min (90-130); Glucose 94 mg/dL (65-115); Osmolality Calculated 284 mOsm/kg (285-295); Potassium 3.6 mmol/L (3.5-5.1); Sodium 139 mmol/L (136-145); Total Bilirubin 0.2 mg/dL (0.15-1.2); Total Protein 6.3 g/dL (6.6-8.7)
--- NOTE | 2020-04-13 01:45 | PC.NURSE ---
read and agree with assessment
[2020-04-13 02:08] VITALS: BP 136/92; PULSE 88; RESP 18; O2SAT 97
== END 2020-04-13 02:00 | disposition home or self-care (01) ==
PROVIDERS: Emergency Provider Physician Assistant; PCP Family Medicine
DX: N30.01 Acute cystitis with hematuria (principal); F17.210 Nicotine dependence, cigarettes, uncomplicated
CPT/HCPCS: 12345; 36415; 80053; 81001; 85025; 87086; 87210; 87491; 87591; 99282; E0352

== ENCOUNTER 2020-04-26 07:34 | Emergency (ER) | payer MEDICARE, MEDICAID, SELFPAY ==
[2020-04-26 07:53] VITALS: BP 119/63; PULSE 71; RESP 16; TEMP 37.1; O2SAT 97; BMI 24.9
--- NOTE | 2020-04-26 08:03 | ED_ITS ---
HPI - Dental/Oral General: Chief complaint: Dental/Oral Stated complaint: ABSCESSED TOOTH Time Seen by Provider: 04/26/20 07:48 Source: patient Mode of arrival: ambulatory Limitations: no limitations History of Present Illness: HPI Narrative: Patient is a nice 39-year-old female who presents to ED today with a complaint of a dental infection. Patient tells me she had a right upper incisor worked on at a dentist recently and believes it may have gotten infected. She was seen by primary care recently and placed on Pen-VK 500 mg twice daily. She states she has had a total of 2 doses of this. Patient reports she woke up this morning and the right side of her face was swollen. She has not been running fevers. She has no headache or visual changes. MD Complaint: tooth pain Teeth map: 1. states this tooth was worked on; swelling above tooth/gingiva Duration: constant Relieving factors: nothing Exacerbating factors: nothing Context: history of dental caries Associated symptoms: Reports no associated symptoms; Denies ear or mastoid pain, fever(s) or odynophagia Treatment prior to arrival: other (abx) Review of Systems Const: Denies: fever(s), chills, body aches, fatigue or malaise Eyes: Denies: change in vision, blurry vision, photophobia, eye discomfort, eye discharge, floaters or seeing flashes ENMT: Reports: other (R facial swelling); Denies: throat pain, odynophagia, swelling of lips/tongue, oral sores, ear or mastoid pain, nasal discharge or nasal congestion Card: Denies: chest pain Resp: Denies: dyspnea GI: Denies: nausea or vomiting Musc: Denies: neck pain Skin/Breast: Denies: rash Neuro: Denies: headache(s) PFS ED PFSH: Medical History (Updated 04/26/20 @ 08:16 by TREY Correia) Anxiety Arthritis Depression Hypokalemia MRSA (methicillin resistant staph aureus) culture positive Family History Grandmother Breast cancer maternal, DX in her 60's Diabetes maternal Father Colon cancer Sister Clotting disorder Denies family history of Hyperlipidemia Anesthesia complication Bleeding disorder Hypertension Stroke Social History (Reviewed 04/25/20 @ 18:24 by ABDULAZIZ Morales Smoking and tobacco status: current every day smoker cigarettes [ Other cigarette details: 5/day ] Alcohol intake: never Other details 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 Female Reproductive History: Date of last menstrual period: 04/26/20 Physical Exam Const: COMMON NORMALS: no acute distress, average body habitus, patient o riented x3, no limitations, healthy appearing, alert and well nourished HENMT: COMMON NORMALS: normocephalic, atraumatic, hearing grossly normal b ilaterally, external ears normal, EAC's normal, TM's normal bilaterally, Normal external nose present, Normal nasal mucous membranes and turbinates present and oropharynx normal HEAD & SCALP: normal to inspection, normocephalic and atraumatic FACE & SINUS: other (pt with swelling to R infraorbital, maxillary regions; no abscess formation) NOSE: Normal external nose present and Normal nasal mucous membranes and turbinates present EXTERNAL EAR: Yes external ears normal EXTERNAL AUDITORY CANAL: EAC's normal TYMPANIC MEMBRANE: TM's normal bilaterally THROAT: posterior oropharynx normal, tonsils normal and uvula midline Eye: COMMON NORMALS: Equal, round and reactive pupils present, EOMs intact bilaterally, conjunctivae normal and no scleral icterus CONJUNCTIVA: Yes conjunctivae normal PUPIL: Yes Equal, round and reactive pupils present Neck/C-Spine: COMMON NORMALS: full ROM, no lymphadenopathy and no meningeal signs GENERAL: Yes normal visual inspection CERVICAL SPINE: Yes cervical ROM normal Lymph: LYMPHATIC: no lymphadenopathy noted Neuro: COMMON NORMALS: patient oriented x3 and CN's II-XII intact bilaterally SENSORIUM/ORIENTATION: Yes alert MENINGEAL SIGNS: Yes no meningeal signs Skin: COMMON NORMALS: no rashes or lesions noted GENERAL SKIN EXAM: no rashes or lesions noted Course Vital Signs: Vital signs: Vital Signs Temperature 98.7 F 04/26/20 07:53 Pulse Rate 53 L 04/26/20 09:44 Respiratory Rate 16 04/26/20 09:44 Blood Pressure 99/56 04/26/20 09:44 Pulse Oximetry 96 04/26/20 09:44 MDM - Dental/Oral MDM Narrative: Medical decision making narrative: pt given doses of IV abx here; she will be instructed to continue taking her oral abx; return to ED precautions given; recommend follow up with her dentist Discharge Plan Discharge Patient Disposition: Home, Self-Care Clinical Impression: Dental infection Condition: Stable Prescriptions: No Action penicillin V potassium 500 mg tablet 500 mg PO BID 10 Days Qty: 20 RF: 0 buprenorphine HCl 8 mg tablet, sublingual 8 mg SUBLINGUAL TID RF: 0 ibuprofen 800 mg Tablet 800 mg PO TID Qty: 60 RF: 0 docusate sodium 100 mg Capsule 100 mg PO BID Qty: 60 RF: 0 sennosides [Senna Lax] 8.6 mg Tablet 8.6 mg PO QPM RF: 0 clonazepam 0.5 mg Tablet 0.5 mg PO BID RF: 0 aripiprazole 10 mg Tablet 10 mg PO QPM RF: 0 Prenatabs Rx 29 mg iron- 1 mg Tablet 1 tab PO QPM RF: 0 duloxetine 60 mg Capsule, Delayed Rel Sprinkle 60 mg PO DAILY RF: 0 Discharge Orders: Discharge Order (Routine); Ordered 04/26/20 Ordered By: Emily Lopez Patient Instructions: Dental Abscess (ED), Dental Caries (ED), Toothache (ED) Activity Restrictions/Additional Instructions: Begin taking your antibiotic THREE TIMES DAILY until gone. You need to follow up with your dentist as soon as possible. You may return to the ED for worsening pain, swelling, fevers, difficulty swallowing, or any other concerns you may have. Discharge Date/Time: 04/26/20 09:45 Coding Level of Care Code ED Butter Melter for Karlene Jon Exam Detailed
[2020-04-26] MEDS: cefTRIAXone 1,000 MG in sodium chloride 0.9% (plus) 50 ML 100 MG IV (08:35)
[2020-04-26] MEDS: metroNIDAZOLE IV 500 MG/100 ML PREMIX 100 MG IV (08:39)
[2020-04-26 09:44] VITALS: BP 99/56; PULSE 53; RESP 16; O2SAT 96
== END 2020-04-26 09:45 | disposition home or self-care (01) ==
PROVIDERS: Emergency Provider Physician Assistant
DX: K04.7 Periapical abscess without sinus (principal); F17.210 Nicotine dependence, cigarettes, uncomplicated
CPT/HCPCS: 12345; 96365; 96367; 99282; 99283; J0696; S0030

== ENCOUNTER → 2020-04-28 09:37 | Outpatient (BNVA) | payer MEDICARE, MEDICAID, SELFPAY | PROVIDERS: Visit Provider Obstetrics & Gynecology | DX: Z12.4 Encounter for screening for malignant neoplasm of cervix (principal) | CPT/HCPCS: 88175 ==

== ENCOUNTER 2020-05-23 15:36 | Emergency (ER) | payer MEDICARE, MEDICAID, SELFPAY ==
[2020-05-23 16:01] VITALS: BP 117/63; PULSE 71; RESP 18; TEMP 36.6; O2SAT 99; BMI 24.3
--- NOTE | 2020-05-23 16:32 | PC.NURSE ---
unable to detect heart tones with monitor. ED physician informed
[2020-05-23 16:33] LABS: Basophils # 0.1 10^3/uL (0.0-0.1); Basophils % 0.7 %; Eosinophils # 0.2 10^3/uL (0.0-0.8); Hematocrit 43.8 % (37.0-47.0); Hemoglobin 13.7 g/dL (11.5-15.3); Lymphocytes # 2.9 10^3/uL (0.8-4.8); Lymphocytes % 40.2 %; Mean Corpuscular HGB Conc 31.3 g/dL (30.0-36.0); Mean Corpuscular Volume 89.4 fL (81-99); Monocytes # 0.4 10^3/uL (0.2-0.9); Monocytes % 5.5 %; Neutrophils # 3.66 10^3/uL (1.8-7.7); Neutrophils % 50.5 %; Nucleated Red Blood Cells % 0 %; Platelet Count 231 10^3/cmm (130-400); Red Cell Distribution Width 12.6 % (12.1-15.1); White Blood Count 7.3 10^3/uL (4.0-10.0)
[2020-05-23 17:01] LABS: Thyroid Stimulating Hormone 1.52 uIU/mL (0.27-4.20)
--- NOTE | 2020-05-23 17:13 | USR_ITS ---
PROCEDURE INFORMATION: Exam: US Nonobstetric Pelvis; Complete Exam date and time: 05/23/2020 5:32 PM Age: 39 years old Clinical indication: Pelvic pain; Additional info: Post bleeding. Had vaginal delivery. TECHNIQUE: Imaging protocol: Transabdominal pelvic nonobstetric ultrasound. Complete exam. Real time ultrasound with image documentation. COMPARISON: US OB >= 14 weeks fetus [id number] 03/14/2020 10:04 PM FINDINGS: Uterus/cervix: Uterus is normal. Endometrial stripe is 9.2 mm small fluid present. The uterus measures 8.2 cm x 4.5 cm x 5.5 cm. Fluid is seen in the cervical canal 2.3 cm x 0.5 cm x 1 cm. There are multiple complex cervical myometrial cyst present the largest measure 6.1 mm x 4.8 mm x 6.6 mm. Right adnexa: Ovary is not visualized. Left adnexa: Ovary as complex cyst. No mass. Normal blood flow. The left ovary measures 4 cm x 2.5 cm x 3.5 cm a complex cyst is seen with fluid and solid components measuring 3 cm x 2.6 cm x 3.8 cm Free fluid: Small free fluid collection is seen within the cul-de-sac. Bladder: Normal. US/US pelvis lmt w transvag IMPRESSION: 1. Negative uterus myometrium 2. Small free fluid collection is seen within the endometrial cavity. 3. Free fluid is seen in the cul-de-sac 4. Complex cyst left ovary 5. Multiple cervical myometrial cyst . 6. Free fluid is seen within the cervical canal. 7. Right ovary is not visualized
[2020-05-23 17:15] LABS: Alanine Aminotransferase 84 U/L (0-33); Alkaline Phosphatase 155 IU/L (35-105); Aspartate Amino Transferase 51 U/L (0-32); Blood Urea Nitrogen 7 mg/dL (6-20); Calcium 8.5 mg/dL (8.5-10.5); Carbon Dioxide 24 mmol/L (22-29); Chloride 105 mmol/L (98-107); Globulin 3.3 g/dL (1.3-4.6); Glomerular Filtration Rate 94.2 mL/min (90-130); Glucose 59 mg/dL (65-115); Osmolality Calculated 280 mOsm/kg (285-295); Sodium 138 mmol/L (136-145); Total Bilirubin 0.2 mg/dL (0.15-1.2); Total Protein 7.3 g/dL (6.6-8.7)
--- NOTE | 2020-05-23 17:30 | W.ED.FEMALGU ---
HPI - Female Genitourinary General: Chief complaint: Vaginal Bleeding Stated complaint: vaginal bleeding Time Seen by Provider: 05/23/20 16:07 History of Present Illness: HPI Narrative: This patient is a 39-year-old female presenting with vaginal bleeding. She had a baby on March 19 which was born about a month early. She had an episiotomy and the delivery required vacuum assistance. She said since then she has not stopped having vaginal bleeding. Some days it spotting and other days it is heavy like a period. In the past 2 days she has had heavier bleeding and pelvic pain which is getting worse. No fever. 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 Female Reproductive History: Date of last menstrual period: 04/26/20 Physical Exam Const: COMMON NORMALS: no acute distress, patient oriented x3, no limitations and alert GENERAL APPEARANCE: cooperative and comfortable HENMT: HEAD & SCALP: normal to inspection FACE & SINUS: normal facial exam Eye: GENERAL EYE: appearance normal, both eyes and all related structures Neck/C-Spine: COMMON NORMALS: supple, no meningeal signs and no JVD Chest: COMMONS NORMALS: normal inspection of the chest Resp: COMMON NORMALS: normal respiratory effort, No use of accessory muscles and clear to auscultation bilaterally AUSCULTATION: clear to auscultation bilaterally Cardio: COMMON NORMALS: no JVD, regular rate, regular rhythm and No murmurs present (Cardio) RATE: regular rate RHYTHM: regular rhythm GI: COMMON NORMALS: Normal to inspection, nondistended, normoactive bowel sounds present, Soft to palpation and non-tender INSPECTION: Yes normal to inspection AUSCULTATION: Yes normoactive bowel sounds PALPATION: Yes Soft to palpation Back/Pelvis: COMMON NORMALS: thoracic and lumbar spine normal to inspection Extremity: COMMON NORMALS: normal to inspection Neuro: COMMON NORMALS: patient oriented x3, moves all extremities, no focal motor deficits and no sensory deficits noted SENSORIUM/ORIENTATION: Yes alert MENINGEAL SIGNS: Yes no meningeal signs Psych: COMMON NORMALS: mental status grossly normal, cooperative and normal affect Skin: COMMON NORMALS: no rashes or lesions noted and turgor normal GENERAL SKIN EXAM: no rashes or lesions noted and turgor normal Course ED course: Patient with a benign exam. Her history is concerning for increasing bleeding and pain in the time although she is several months out now. I get an ultrasound to rule out any possibility of retained products. More likely she is just starting her periods again. Ultrasound showed a complex cyst on the left. I do not think she has any evidence of ovarian torsion. Fertility is not an issue as she has had her tubes tied. She has follow-up with [facility] and I think she safe for discharge and outpatient management. Vital Signs: Vital signs: Vital Signs Temperature 97.8 F 05/23/20 16:01 Pulse Rate 60 05/23/20 18:18 Respiratory Rate 16 05/23/20 19:17 Blood Pressure 90/38 05/23/20 18:18 Pulse Oximetry 93 05/23/20 18:18 MDM - Female Lab Data: Labs: Lab Results 05/23/20 05/23/20 05/23/20 Range/Units 16:23 16:23 16:38 WBC 7.3 (4.0-10.0) 10^3/ uL RBC 4.90 (4.1-5.3) 10^6/u L Hgb 13.7 (11.5-15.3) g/dL Hct 43.8 (37.0-47.0) % MCV 89.4 (81-99) fL MCH 28.0 (28.0-34.0) pg MCHC 31.3 (30.0-36.0) g/dL RDW 12.6 (12.1-15.1) % Plt Count 231 (130-400) 10^3/c mm MPV 10.0 (7.4-10.4) fL Neut % (Auto) 50.5 % Lymph % (Auto) 40.2 % Atlantic % (Auto) 5.5 % Eos % (Auto) 3.0 % Baso % (Auto) 0.7 % Neut # (Auto) 3.66 (1.8-7.7) 10^3/u L Lymph # (Auto) 2.9 (0.8-4.8) 10^3/u L Atlantic # (Auto) 0.4 (0.2-0.9) 10^3/u L Eos # (Auto) 0.2 (0.0-0.8) 10^3/u L Baso # (Auto) 0.1 (0.0-0.1) 10^3/u L Nucleated RBC % (a uto) 0 % Nucleated RBCs # 0.0 /100WBC Sodium 138 (136-145) mmol/L Potassium 4.0 (3.5-5.1) mmol/L Chloride 105 (98-107) mmol/L Carbon Dioxide 24 (22-29) mmol/L Anion Gap 13.0 (5-19) BUN 7 (6-20) mg/dL Creatinine 0.7 (0.5-0.9) mg/dL GFR Calculation 94.2 (90-130) mL/min Glucose 59 L (65-115) mg/dL Calculated Osmolal ity 280 L (285-295) mOsm/k g Calcium 8.5 (8.5-10.5) mg/dL Total Bilirubin 0.2 (0.15-1.2) mg/dL AST 51 H (0-32) U/L ALT 84 H (0-33) U/L Alkaline Phosphata se 155 H (35-105) IU/L Total Protein 7.3 (6.6-8.7) g/dL Albumin 4.0 (3.5-5.2) g/dL Globulin 3.3 (1.3-4.6) g/dL TSH 1.52 (0.27-4.20) uIU/ mL Ser , Angle i-Qnt 0.50 mIU/mL Urine Color Yellow (Yellow) Urine Appearance Clear (CLEAR) Urine pH 6.5 (5-7) Ur Specific Gravit y 1.015 (1.005-1.030) Urine Protein Neg (Negative) Urine Glucose (UA) Norm (Normal) Urine Ketones Negative (Negative) Urine Blood 3+ H (Negative) Urine Nitrate Negative (Negative) Urine Bilirubin Neg (NEGATIVE) Urine Urobilinogen 1 H (Negative) mg/dL Ur Leukocyte Shauna ase Negative (Negative) Urine RBC 5-10 H (0-2) /hpf Urine WBC 0-4 H (0-5) /hpf Ur Squamous Epith Cells 0-4 H (0-5) Amorphous Sediment Not Reportable Urine Bacteria 1+ H (NONE) Urine Mucus 3+ Discharge Plan Discharge Patient Disposition: Home Clinical Impression: Vaginal bleeding Ovarian cyst Qualifiers: Laterality: left Qualified Code(s): N83.202 - Unspecified ovarian cyst, left side Condition: Stable Prescriptions: No Action buprenorphine HCl 8 mg tablet, sublingual 8 mg SUBLINGUAL BID RF: 0 sennosides [Senna Lax] 8.6 mg Tablet 8.6 mg PO QPM RF: 0 Prenatabs Rx 29 mg iron- 1 mg Tablet 1 tab PO QPM RF: 0 duloxetine 60 mg Capsule, Delayed Rel Sprinkle 60 mg PO DAILY RF: 0 aripiprazole 10 mg tablet 30 mg PO QPM RF: 0 clonazepam 0.5 mg tablet See Rx Instructions .ROUTE .COMPLEX RF: 0 amoxicillin 500 mg Capsule 500 mg PO BID RF: 0 lithium carbonate 150 mg capsule 150 mg PO BID RF: 0 Midol 500-25 mg Tablet 1 tab PO PRN RF: 0 Aleve 220 mg Tablet 220 mg PO PRN RF: 0 docusate sodium 100 mg capsule 100 mg PO BEDTIME RF: 0 Discharge Orders: Discharge Order (Routine); Ordered 05/23/20 Ordered By: Sonia Saldaña Referrals: Jono Light MD [Physician] - 7-10 days Discharge Diet: Usual diet Discharge Activity: Resume usual activity Patient Instructions: Ovarian Cyst (ED) Activity Restrictions/Additional Instructions: Follow up with your OB doctor within the next 1 - 2 weeks for further evaluation. Return to the ED if heavy bleeding continues or other new or concerning symptoms. Discharge Date/Time: 05/23/20 19:19 Coding Level of Care Code ED Inside Sales Territory Manager for Karlene Jon
[2020-05-23 17:36] LABS: Add Urine Microscopic? YES; Bilirubin Urine Neg (NEGATIVE); Blood Urine 3+ (Negative); Glucose Urine UA Norm (Normal); Ketones Urine Negative (Negative); Leukocyte Esterase Urine Negative (Negative); Nitrate Urine Negative (Negative); Protein Urine Neg (Negative); Specific Gravity, Urine 1.015 (1.005-1.030); Urine Appearance Clear (CLEAR); Urine Color Yellow (Yellow); Urobilinogen Urine 1 mg/dL (Negative); pH Urine 6.5 (5-7)
--- NOTE | 2020-05-23 17:37 | PC.NURSE ---
ultrasound at bedside
[2020-05-23 17:41] LABS: Bacteria Urine 1+; Squamous Epithelial Cell Urine 0-4 (0-5); WBC Urine 0-4 /hpf (0-5)
[2020-05-23 17:42] LABS: Add Urine Culture? No; Mucus Urine 3+
[2020-05-23 18:18] VITALS: BP 90/38; PULSE 60; O2SAT 93
--- NOTE | 2020-05-23 18:49 | PC.NURSE ---
pt left and called back to ER at 1835 to say she got upset and left but wanted me to still give her the results. Nurse told pt she had 10 minutes to arrive back in her room or she could go to medical records in the morning. Pt arrived at 1845. pt had removed her own IV.
[2020-05-23 19:17] VITALS: RESP 16
[2020-05-24 00:53] LABS: Lithium 0.3 mmol/L (0.6-1.2)
== END 2020-05-23 19:19 | disposition home or self-care (01) ==
PROVIDERS: Emergency Provider Emergency Medicine
DX: N93.9 Abnormal uterine and vaginal bleeding, unspecified (principal); N83.202 Unspecified ovarian cyst, left side; F17.210 Nicotine dependence, cigarettes, uncomplicated; Z79.899 Other long term (current) drug therapy
CPT/HCPCS: 12345; 36415; 76830; 76857; 80053; 80178; 81001; 84443; 84702; 85025; 99283

== ENCOUNTER → 2020-07-24 11:16 | Outpatient (BNVA) | payer MEDICARE, MEDICAID, SELFPAY | PROVIDERS: Visit Provider Obstetrics & Gynecology | DX: N83.02 Follicular cyst of left ovary (principal); N83.01 Follicular cyst of right ovary | CPT/HCPCS: 76830 ==

== ENCOUNTER 2020-07-29 09:15 | Emergency (ER) | payer MEDICARE, MEDICAID, SELFPAY ==
[2020-07-29 10:03] VITALS: BP 106/63; PULSE 70; RESP 16; TEMP 36.9; O2SAT 95; BMI 24.3
--- NOTE | 2020-07-29 10:17 | W.ED.GENADLT ---
HPI - General Adult General: Chief complaint: Dental/Oral Stated complaint: dental pain Time Seen by Provider: 07/29/20 10:10 History of Present Illness: HPI narrative: Patient had a root canal done yesterday by dentist sera and Ragini and now has some swelling to her right sinus area and tenderness that she woke up with. complaint: Dental abscess Onset (ago): hour(s) Review of Systems Const: Denies: fever(s) or chills ENMT: Reports: dental pain Psych: Denies: anxiety or depression PFS ED PFSH: Medical History (Updated 07/29/20 @ 10:16 by MARY Almazan) Arthritis Hypokalemia MRSA (methicillin resistant staph aureus) culture positive No pertinent past medical history neghx: htn,dm,thyroid,dvt/pe Surgical History S/P foot surgery, right (~1998) and right leg, right arm S/P tubal ligation 03/19/2020- bilateral tubal ligation via modified Desirae, performed by Dr. 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 Additional social history: - Tobacco use: Current everyday smoker; 0.5pk daily Alcohol use: Denies Drug use: former; methamphetamines for 2 years Female Reproductive History: Date of last menstrual period: 04/26/20 Physical Exam Const: COMMON NORMALS: no acute distress HENMT: OTHER: Has some swelling to the right side of her face no drainage inside of her mouth is tender right upper gum Psych: COMMON NORMALS: mental status grossly normal Course Vital Signs: Vital signs: Vital Signs Temperature 98.4 F 07/29/20 10:03 Pulse Rate 70 07/29/20 10:03 Respiratory Rate 17 07/29/20 11:04 Blood Pressure 106/50 07/29/20 11:04 Pulse Oximetry 95 07/29/20 10:03 Discharge Plan Discharge Patient Disposition: Home Clinical Impression: Dental abscess Condition: Stable Prescriptions: New clindamycin HCl 300 mg capsule 300 mg PO TID 7 Days Qty: 21 RF: 0 No Action buprenorphine HCl 8 mg tablet, sublingual 8 mg SUBLINGUAL BID RF: 0 Prenatabs Rx 29 mg iron- 1 mg Tablet 1 tab PO QPM RF: 0 duloxetine 60 mg Capsule, Delayed Rel Sprinkle 60 mg PO DAILY RF: 0 aripiprazole 10 mg tablet 30 mg PO QPM RF: 0 lithium carbonate 150 mg capsule 150 mg PO BID RF: 0 Discharge Orders: Discharge Order (Routine); Ordered 07/29/20 Ordered By: Oliverio Payne Discharge Diet: Usual diet Discharge Activity: Resume usual activity Patient Instructions: Dental Abscess (ED) Activity Restrictions/Additional Instructions: Follow-up with medical provider as directed. Take medications as prescribed. Return to the ER or your medical provider if condition worsens. Please read and understand discharge instructions. If any questions ask please. Discharge Date/Time: 07/29/20 11:06 Coding Level of Care Code ED Program Or Project Administrator for Karlene Fwd Exam Expanded Problem Focused
[2020-07-29 10:56] VITALS: BP 106/50; RESP 17
[2020-07-29 11:04] VITALS: BP 106/50; RESP 17
== END 2020-07-29 11:06 | disposition home or self-care (01) ==
PROVIDERS: Emergency Provider Nurse Practitioner Family
DX: K04.7 Periapical abscess without sinus (principal); F17.210 Nicotine dependence, cigarettes, uncomplicated
CPT/HCPCS: 12345; 99281

== ENCOUNTER 2020-07-30 11:05 | Emergency (ER) | payer MEDICARE, MEDICAID, SELFPAY ==
[2020-07-30 11:12] VITALS: BP 104/69; PULSE 70; RESP 18; TEMP 36.7; O2SAT 97; BMI 24.3
[2020-07-30 11:20] VITALS: BP 105/45; PULSE 64; RESP 17; O2SAT 96
--- NOTE | 2020-07-30 11:34 | ED_ITS ---
HPI - Dental/Oral General: Chief complaint: Dental/Oral Stated complaint: R TOOTH PAIN/HERE YESTERDAY WORSE TODAY Time Seen by Provider: 07/30/20 11:19 History of Present Illness: HPI Narrative: She was seen here in the ER yesterday by me she had redness in her right cheek that started from a day after having a root canal done. Patient has worsening swelling today and pain. Has taken a total of 3 clindamycin so far. MD Complaint: tooth pain Teeth map: 1. Says she had a root canal done on #7 tooth Onset (ago): day(s) Duration: worsening Severity: moderate Severity scale (1-10): 6 Relieving factors: nothing Exacerbating factors: nothing Context: history of dental caries and poor dental care Associated symptoms: Reports no associated symptoms; Denies fever(s) Treatment prior to arrival: none Review of Systems Const: Denies: fever(s), chills or body aches Eyes: Denies: change in vision or blurry vision ENMT: Reports: other (Swelling to right cheek); Denies: throat pain or nasal congestion Card: Denies: chest pain or dyspnea on exertion Resp: Denies: dyspnea, productive cough or non-productive cough GI: Denies: abdominal pain, nausea or vomiting Musc: Denies: extremity pain Skin/Breast: Denies: rash Neuro: Denies: headache(s) Psych: Denies: anxiety or depression Elie/Lymph: Denies: easy bruising [facility] ED PFSH: Medical History (Updated 07/30/20 @ 11:34 by MARY Almazan) Arthritis Hypokalemia MRSA (methicillin resistant staph aureus) culture positive No pertinent past medical history neghx: htn,dm,thyroid,dvt/pe Surgical History S/P foot surgery, right (~1998) and right leg, right arm S/P tubal ligation 03/19/2020- bilateral tubal ligation via modified Desirae, performed by Dr. 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 Additional social history: - Tobacco use: Current everyday smoker; 0.5pk daily Alcohol use: Denies Drug use: former; methamphetamines for 2 years Female Reproductive History: Date of last menstrual period: 04/26/20 Physical Exam Const: COMMON NORMALS: no acute distress, average body habitus and patient oriented x3 HENMT: COMMON NORMALS: normocephalic HEAD & SCALP: normal to inspection and normocephalic FACE & SINUS: other (Patient has redness to the right cheek extending up below the right eye into the side of the nose slightly warm to touch does have fluid underneath the right eye look at T skin I do not see where she had a root canal generally she did have a crown I will see her drilling is done and she has a filling in there at the same color as her tooth) Eye: COMMON NORMALS: conjunctivae normal GENERAL EYE: appearance normal, both eyes and all related structures CONJUNCTIVA: Yes conjunctivae normal Neck/C-Spine: COMMON NORMALS: no JVD Chest: COMMONS NORMALS: normal inspection of the chest Resp: COMMON NORMALS: normal respiratory effort and clear to auscultation bilaterally AUSCULTATION: clear to auscultation bilaterally Cardio: COMMON NORMALS: no JVD, regular rate and regular rhythm RATE: regular rate RHYTHM: regular rhythm GI: COMMON NORMALS: Normal to inspection, nondistended, normoactive bowel sounds present Extremity: COMMON NORMALS: normal to inspection and full ROM Neuro: COMMON NORMALS: patient oriented x3 Course Vital Signs: Vital signs: Vital Signs Temperature 98.0 F 07/30/20 11:12 Pulse Rate 64 07/30/20 11:20 Respiratory Rate 17 07/30/20 11:20 Blood Pressure 105/45 07/30/20 11:20 Pulse Oximetry 96 07/30/20 11:20 MDM - Dental/Oral MDM Narrative: Medical decision making narrative: Discussed case with Dr. Saldaña Discharge Plan Discharge Patient Disposition: Home Clinical Impression: Dental abscess Condition: Stable Prescriptions: New Bactrim DS 800-160 mg tablet 1 tab PO BID 7 Days Qty: 14 RF: 0 No Action buprenorphine HCl 8 mg tablet, sublingual 8 mg SUBLINGUAL BID RF: 0 clindamycin HCl 300 mg capsule 300 mg PO TID 7 Days Qty: 21 RF: 0 Prenatabs Rx 29 mg iron- 1 mg Tablet 1 tab PO QPM RF: 0 duloxetine 60 mg Capsule, Delayed Rel Sprinkle 60 mg PO DAILY RF: 0 aripiprazole 10 mg tablet 30 mg PO QPM RF: 0 lithium carbonate 150 mg capsule 150 mg PO BID RF: 0 Discharge Orders: Discharge Order (Routine); Ordered 07/30/20 Ordered By: Oliverio Payne Discharge Diet: As Directed Discharge Activity: Resume usual activity Patient Instructions: Dental Abscess (ED) Activity Restrictions/Additional Instructions: Follow-up with medical provider as directed. Take medications as prescribed. Return to the ER or your medical provider if condition worsens. Please read and understand discharge instructions. If any questions ask please. Contact her dentist tomorrow and see about getting in tomorrow and reopening that feeling and given the abscess drained Coding Level of Care Code ED Hat Braider for Karlene Jon
[2020-07-30] MEDS: cefTRIAXone 1,000 mg SDV 1000 MG IM (11:46)
[2020-07-30] MEDS: lidocaine 1% INJ 20 mL IM (11:47)
== END 2020-07-30 11:52 | disposition home or self-care (01) ==
PROVIDERS: Emergency Provider Nurse Practitioner Family
DX: K04.7 Periapical abscess without sinus (principal); Z86.14 Personal history of Methicillin resistant Staphylococcus aureus infection; F17.210 Nicotine dependence, cigarettes, uncomplicated
CPT/HCPCS: 12345; 96372; 99281; 99283; J0696

== ENCOUNTER 2021-02-06 16:12 | Emergency (ER) | payer MEDICARE, MEDICAID, SELFPAY ==
[2021-02-06 16:22] VITALS: BP 119/75; PULSE 64; RESP 18; TEMP 36.9; O2SAT 99; BMI 25.0
--- NOTE | 2021-02-06 17:13 | W.ED.FEMALGU ---
Documented by User: Sae Gomez DO 02/10/21 14:35 HPI - Female Genitourinary General: Chief complaint: Urogenital-Female Stated complaint: AB/ LOWER BACK PAIN, INFECTION IN UTERUS Time Seen by Provider: 02/06/21 17:09 History of Present Illness: HPI Narrative: 40-year-old female presents emergency room complaining of vaginal discharge. She has little bit of pelvic cramping and discomfort as well. She states she has had this for several months she has pain and discomfort with urination she also has some dyspareunia. She stated it was occurring during her as well she has been treated with [id number] Monistat for vaginal yeast infection. She denies any flank pain. Nurses list that she had abdominal pain but when I talked to her she denies any specific abdominal pain. She is extremely anxious. MD elicited complaint: dysuria and vaginal discharge Onset (ago): month(s) Location of symptoms: vaginal Severity: mild Quality of pain: cramping Consistency: intermittent Vaginal discharge: white Vaginal bleeding: none Urinary symptoms: Dysuria Exacerbating factors: urination and intercourse Relieving factors: none Associated symptoms: Reports vaginal discharge; Deny abdominal pain, short of breath, fevers/chills, headache(s), nausea, rash, seizures, syncope, vaginal bleeding or weakness Treatment prior to arrival: none Sexual activity: Yes Patient : No Date of Last Menstrual Period: 04/26/20 Review of Systems Const: Denies: fever(s), chills, body aches, change in appetite, fatigue or malaise ENMT: Denies: throat pain, ear or mastoid pain, nasal discharge or nasal congestion Card: Denies: syncope Resp: Denies: dyspnea, productive cough or non-productive cough GI: Denies: abdominal pain or nausea : Reports: vaginal discharge Skin/Breast: Denies: rash or pruritus Neuro: Denies: headache(s) PFSH ED PFSH: Medical History Arthritis Hypokalemia MRSA (methicillin resistant staph aureus) culture positive No pertinent past medical history neghx: htn,dm,thyroid,dvt/pe Surgical History S/P foot surgery, right (~1998) and right leg, right arm S/P tubal ligation 03/19/2020- bilateral tubal ligation via modified [place], performed by Dr. 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 Additional social history: - Tobacco use: Current everyday smoker; 0.5pk daily Alcohol use: Denies Drug use: former; methamphetamines for 2 years Female Reproductive History: Date of last menstrual period: 04/26/20 Physical Exam Const: COMMON NORMALS: no acute distress GENERAL APPEARANCE: cooperative and comfortable ORIENTATION/CONSCIOUSNESS: Yes awake, Yes oriented to person, Yes oriented to place and Yes oriented to time HENMT: COMMON NORMALS: normocephalic, atraumatic and hearing grossly normal bilaterally HEAD & SCALP: normocephalic and atraumatic Neck/C-Spine: COMMON NORMALS: no JVD Resp: COMMON NORMALS: normal respiratory effort, No retractions, No use of accessory muscles and clear to auscultation bilaterally AUSCULTATION: clear to auscultation bilaterally Cardio: COMMON NORMALS: no JVD, regular rate, regular rhythm and No murmurs present (Cardio) RATE: regular rate RHYTHM: regular rhythm GI: COMMON NORMALS: Soft to palpation and No hepatosplenomegaly present AUSCULTATION: Yes normoactive bowel sounds PALPATION: Yes Soft to palpation, No Tenderness to palpation present (GI), No Guarding due to palpation present (GI) and Yes No hepatosplenomegaly present : SPECULUM EXAM - VAGINA: No vaginal bleeding OB/EXTERNAL & SPECULUM: No vaginal bleeding Extremity: COMMON NORMALS: normal to inspection, capillary refill normal, no clubbing, cyanosis or edema, no calf tenderness and no pedal edema Neuro: SENSORIUM/ORIENTATION: Yes oriented to person, Yes oriented to place and Yes oriented to time Skin: COMMON NORMALS: no rashes or lesions noted GENERAL SKIN EXAM: no rashes or lesions noted Course Vital Signs: Vital signs: Vital Signs Temperature 98.5 F 02/06/21 16:22 Pulse Rate 64 02/06/21 16:22 Respiratory Rate 18 02/06/21 16:22 Blood Pressure 119/75 02/06/21 16:22 Pulse Oximetry 99 02/06/21 16:22 MDM - Female MDM Narrative: Medical decision making narrative: Wet mount pending care turned over to Dr. Landaverde at change of shift Lab Data: Attestation: I reviewed the patient's lab results. Labs: Lab Results 02/06/21 02/06/21 Range/Units 17:23 17:23 HCG, Qual Negative (Negative) Urine Color Yellow (Yellow) Urine Appearance Clear (CLEAR) Urine pH 7 (5-7) Ur Specific Gravit y 1.010 (1.005-1.030) Urine Protein Neg (Negative) Urine Glucose (UA) Norm (Normal) Urine Ketones Negative (Negative) Urine Blood Neg (Negative) Urine Nitrate Negative (Negative) Urine Bilirubin Neg (Negative) Urine Urobilinogen 1 H (Negative) mg/dL Ur Leukocyte Shauna ase 1+ H (Negative) Urine RBC None (0-2) /hpf Urine WBC 0-4 H (0-5) /hpf Ur Squamous Epith Cells 5-10 H (0-5) /hpf Amorphous Sediment Not Reportable Urine Bacteria Trace (NONE) /hpf Discharge Plan Discharge Patient Disposition: Home Clinical Impression: Bacterial vaginosis Urinary tract infection Qualifiers: Urinary tract infection type: acute cystitis Hematuria presence: without hematuria Qualified Code(s): N30.00 - Acute cystitis without hematuria Condition: Stable Prescriptions: New metronidazole 500 mg tablet 500 mg PO BID 7 Days Qty: 14 RF: 0 cephalexin 500 mg capsule 500 mg PO QID 7 Days Qty: 28 RF: 0 No Action buprenorphine HCl 8 mg tablet, sublingual 8 mg SUBLINGUAL BID RF: 0 duloxetine 60 mg Capsule, Delayed Rel Sprinkle 60 mg PO BID RF: 0 aripiprazole 10 mg tablet 30 mg PO DAILY RF: 0 diazepam 10 mg tablet 10 mg PO TID RF: 0 Discharge Orders: Discharge ED (Routine); Ordered 02/06/21 Ordered By: Gopi Landaverde Discharge Diet: Advance as tolerated Discharge Activity: Resume usual activity Patient Instructions: Opioid Safety Sign Out Sign Out Data: Patient Sign Out occurred on 02/06/21 at 18:14. Patient's care was discussed, and care was transferred from to Gopi Landaverde MD. Coding Level of Care Code ED Cracking And Fanning Machine Operator for Chg Fwd Exam Comprehensive Documented by User: Gopi Landaverde MD 02/06/21 19:07 HPI - Female Genitourinary General: Chief complaint: Urogenital-Female Stated complaint: AB/ LOWER BACK PAIN, INFECTION IN UTERUS Time Seen by Provider: 02/06/21 17:09 [facility] ED PFSH: Medical History Arthritis Hypokalemia MRSA (methicillin resistant staph aureus) culture positive No pertinent past medical history neghx: htn,dm,thyroid,dvt/pe Surgical History S/P foot surgery, right (~1998) and right leg, right arm S/P tubal ligation 03/19/2020- bilateral tubal ligation via modified [place], performed by Dr. 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 Lab results narrative: NAME: Brittani Carballo LOC: ER U #: [id number] AGE/SX: 40/F ROOM: RE02/06/[address]: Gopi Landaverde MD : 1980 BED: DIS: FAX #: STATUS: REG ER TLOC: Spec #: [id number] Suman: 02/06/21-1733 Status: COMP Req #: [id number] Recd: 02/06/[address]: Sae Gomez DO Src: Vaginal SpDesc: Ordered: Wet Prep Comments: UNABLE TO PERFORM TRICHOMONAS TESTING DUE TO SPECIMEN STABILITY. DS Procedure Result Verified Site Wet Prep Tric BV Becky Final 02/06/21 WBC'S MANY TRICHOMONAS CATALOG LIBRARIAN YEAST/FUNGAL NOT SEEN CLUE-CELLS FEW BACTERIA MANY NOTICE OF CONFIDENTIALITY The recipient of this confidential patient information is prohibited from disclosing the information to any other democrat and is required to destroy the information after the stated need has been fulfilled. Anyone receiving this data in error should notify the [facility] immediately by telephone: . Thank you for your cooperation. END OF REPORT Labs: Lab Results 02/06/21 02/06/21 Range/Units 17:23 17:23 HCG, Qual Negative (Negative) Urine Color Yellow (Yellow) Urine Appearance Clear (CLEAR) Urine pH 7 (5-7) Ur Specific Gravit y 1.010 (1.005-1.030) Urine Protein Neg (Negative) Urine Glucose (UA) Norm (Normal) Urine Ketones Negative (Negative) Urine Blood Neg (Negative) Urine Nitrate Negative (Negative) Urine Bilirubin Neg (Negative) Urine Urobilinogen 1 H (Negative) mg/dL Ur Leukocyte Shauna ase 1+ H (Negative) Urine RBC None (0-2) /hpf Urine WBC 0-4 H (0-5) /hpf Ur Squamous Epith Cells 5-10 H (0-5) /hpf Amorphous Sediment Not Reportable Urine Bacteria Trace (NONE) /hpf Discharge Plan Discharge Patient Disposition: Home Clinical Impression: Bacterial vaginosis Urinary tract infection Qualifiers: Urinary tract infection type: acute cystitis Hematuria presence: without hematuria Qualified Code(s): N30.00 - Acute cystitis without hematuria Condition: Stable Prescriptions: New metronidazole 500 mg tablet 500 mg PO BID 7 Days Qty: 14 RF: 0 cephalexin 500 mg capsule 500 mg PO QID 7 Days Qty: 28 RF: 0 No Action buprenorphine HCl 8 mg tablet, sublingual 8 mg SUBLINGUAL BID RF: 0 duloxetine 60 mg Capsule, Delayed Rel Sprinkle 60 mg PO BID RF: 0 aripiprazole 10 mg tablet 30 mg PO DAILY RF: 0 diazepam 10 mg tablet 10 mg PO TID RF: 0 Discharge Orders: Discharge ED (Routine); Ordered 02/06/21 Ordered By: Gopi Landaverde Discharge Diet: Advance as tolerated Discharge Activity: Resume usual activity Patient Instructions: Opioid Safety Sign Out Sign Out Data: Patient Sign Out occurred on 02/06/21 at 18:14. Patient's care was discussed, and care was transferred from to Gopi Landaverde MD. Coding Level of Care Code ED Cracking And Fanning Machine Operator for Chg Fwd Exam Comprehensive
[2021-02-06 17:54] LABS: HCG Qualitative Urine. Negative (Negative)
[2021-02-06 18:09] LABS: Urine Appearance Clear (CLEAR); Urine Color Yellow (Yellow)
[2021-02-06 18:10] LABS: Bilirubin Urine Neg (Negative); Blood Urine Neg (Negative); Glucose Urine UA Norm (Normal); Ketones Urine Negative (Negative); Leukocyte Esterase Urine 1+ (Negative); Nitrate Urine Negative (Negative); Protein Urine Neg (Negative); Urobilinogen Urine 1 mg/dL (Negative); pH Urine 7 (5-7)
[2021-02-06 18:12] LABS: Bacteria Urine TRACE /hpf; WBC Urine 0-4 /hpf (0-5)
[2021-02-06 18:13] LABS: Add Urine Culture? No
== END 2021-02-06 19:13 | disposition home or self-care (01) ==
PROVIDERS: Family Medicine; Physician Assistant; Emergency Provider Family Medicine
DX: N76.0 Acute vaginitis (principal); N30.00 Acute cystitis without hematuria; F17.210 Nicotine dependence, cigarettes, uncomplicated
CPT/HCPCS: 81001; 81025; 87210; 87491; 87591; 99283; E0352

== ENCOUNTER → 2021-03-12 14:54 | Outpatient (BNVA) | payer MEDICARE, MEDICAID, SELFPAY | PROVIDERS: PCP Obstetrics & Gynecology; Visit Provider Obstetrics & Gynecology | DX: R10.2 Pelvic and perineal pain (principal); R30.0 Dysuria; N76.0 Acute vaginitis; B96.89 Other specified bacterial agents as the cause of diseases classified elsewhere | CPT/HCPCS: 84315; 87481; 87491; 87512; 87591; 87799 ==

== ENCOUNTER 2021-07-18 19:36 | Emergency (ER) | payer MEDICARE, MEDICAID, SELFPAY ==
[2021-07-18 19:58] VITALS: BP 133/83; PULSE 59; RESP 18; TEMP 35.8; O2SAT 100; BMI 30.4
--- NOTE | 2021-07-18 20:30 | ECG_ITS ---
[facility] Test Date: 2021-07-18 Pat Name: Brittani Carballo Department: Room: Gender: Female Form Setter Steel Forms: : 1980 Requested By: Yang Montiel Order Number: [id number] Deniz MD: Juan A Jha M.D. Measurements Intervals [place] Rate: 54 P: 38 NE: 177 QRS: 16 QRSD: 104 T: 14 QT: 421 QTc: 403 Interpretive Statements SINUS BRADYCARDIA Compared to ECG 02/10/2020 05:37:09 Sinus rhythm no longer present Electronically Signed On 07-18-2021 21:54:24 CDT by Juan A Jha M.D. [email or web address] [email or web address] clinic avon [id number]
[2021-07-18 20:39] LABS: Add Urine Microscopic? NO; Charge for UA Resulting for Rev
[2021-07-18 20:40] LABS: Basophils % 0.6 %; Eosinophils # 0.2 10^3/uL (0.0-0.8); Eosinophils % 2.9 %; Lymphocytes # 2.1 10^3/uL (0.8-4.8); Lymphocytes % 30.9 %; Mean Corpuscular HGB Conc 33.3 g/dL (30.0-36.0); Mean Corpuscular Volume 83.9 fl (81-99); Mean Platelet Volume 9.7 fL (7.4-10.4); Monocytes # 0.4 10^3/uL (0.2-0.9); Monocytes % 5.5 %; Nucleated Red Blood Cells % 0 %; Platelet Count 206 10^3/cmm (130-400); Red Blood Count 4.65 10^6/uL (4.1-5.3); White Blood Count 6.9 10^3/uL (4.0-10.0)
[2021-07-18] MEDS: sodium chloride 0.9% 1,000 ML 999 ML IV (20:41)
[2021-07-18 20:45] LABS: Urine Appearance Clear (CLEAR); Urine Color Yellow (Yellow); pH Urine 8 (5-7)
--- NOTE | 2021-07-18 20:45 | ED_ITS ---
HPI - General Adult General: Chief complaint: Dizziness Stated complaint: abd, back pain, dizzy an swelling Time Seen by Provider: 07/18/21 20:07 History of Present Illness: HPI narrative: Patient is a 41-year-old female who presents emergency room for acute onset lightheadedness since yesterday. Patient went to see a primary care provider about 2 weeks ago which point time, was told that her AST/ALT were elevated. Since then, patient has noticed swelling in the lower extremity. Since yesterday, patient says that she has reported lightheadedness throughout the day at rest and on exertion. Patient has no associated shortness of breath, palpitation, abdominal pain, diarrhea, melena/hematochezia. Patient states that normally she has heavy periods. No complaints of fever/chills, cough/runny nose/sore throat. Patient denies vertigo, tinnitus, diplopia reports mild blurriness of vision. Denies any monocular vision loss or eye pain. Denies any focal weakness in the arms or legs. Onset: 1 day ago acutely Duration:ongoing Location: home Severity:mild/moderate Review of Systems Narrative: Constitutional: No fever, no chills. HEENT: +b/l blurriness of vision CV: No chest pain, no palpitations PULM: no cough, no dyspnea. GI: No abdominal pain, no N/V/D. : No dysuria MSKEL: No muscle pain SKIN: No new rashes, no lesions. NEURO: +light-headedness, no focal weakness HEME: No visible bruises PSYCH: Normal mood PFS ED PFSH: Medical History (Updated 07/18/21 @ 20:54 by Yang Montiel MD) Arthritis Hypokalemia MRSA (methicillin resistant staph aureus) culture positive No pertinent past medical history neghx: htn,dm,thyroid,dvt/pe Surgical History S/P foot surgery, right (~1998) and right leg, right arm S/P tubal ligation 03/19/2020- bilateral tubal ligation via modified [place], performed by Dr. Light at [facility] [place] Family History Grandmother Breast cancer maternal, DX in her 60's Diabetes maternal Father Colon cancer Sister Clotting disorder Denies family history of Hyperlipidemia Anesthesia complication Bleeding disorder Hypertension Stroke Social History (Updated 03/27/21 @ 08:00 by Marialuisa Lamas RN) Smoking and tobacco status: current every day smoker e-cigarettes E-Cigarette Details: vaporizer device and without nicotine E-cig/vape details: uncertain how often she vapes Quit status (tobacco): has quit using tobacco Alcohol intake: never Other details 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 NO guarding rebound, guarding, rigidity. No CVA tenderness to percussion. Neg Dumont/Neg McBurney's point tenderness, no suprabupic tenderness to palpation. EXTREMITY: Normal ROM SKIN: No rash or erythema NEURO: Mental status? Awake, alert, and oriented to self, year, month, location, and situation.? Following simple axial and appendicular commands.? Has appropriate fund of knowledge, comprehension, and insight.? Able to recall and understands pertinent aspects of medical history and current treatment status.? ? Language? Speech is fluent without word-finding difficulties.? Intact naming, expression, administrative receptionist, and repetition.? ? Cranial nerves? 2,3,4,6: PERRL, EOMI with no nystagmus. 5: Intact sensation to light touch, symmetric? 7: Smile symmetrical, no facial droop.? 8: Hearing grossly intact.? 9,10: Normal palate movement.? 11: Normal strength in trapezius bilaterally 12: Tongue protrudes midline.? ? Motor examination? Normal bulk & tone. Strength as follows (R/L): Delts (5/5), Biceps (5/5), Triceps (5/5), Wrist ext (5/5), hip flexors (5/5), plantarflexors (5/5), dorsiflexors (5/5). ? Sensation? Light Touch: Grossly intact and equal in upper and lower extremities bilaterally? Romberg: Negative.? Distal joint position sense intact ? Coordination? Dlsrhf-jw-xrwx-finger movements intact without dysmetria or past-pointing.? Rapid fingertaps: preserved amplitude without decriment.? No tremor, myoclonus or truncal ataxia.? ? Gait/stance? Steady, normal narrow base gait with appropriate arm swing and turning.? Tandem gait without hesitation or loss of balance. PSYCH: Normal mood and affect Course Vital Signs: Vital signs: Vital Signs Temperature 96.5 F L 07/18/21 19:58 Pulse Rate 57 L 07/18/21 21:53 Respiratory Rate 16 07/18/21 21:53 Blood Pressure 118/76 07/18/21 21:53 Pulse Oximetry 99 07/18/21 21:53 MDM - General Adult MDM Narrative: Medical decision making narrative: Patient is 41-year-old female who presents the emergency room with complaints of lightheadedness x1 day. On exam, patient is hemodynamically stable without any neurological findings. Work-up today including basic blood work including Troponin, abdominal lab, and EKG Intervention: IVF, po challenge EKG showing regular sinus rhythm at HT of [54]. Normal axis. No ST elevations/depressions to suggest ischemia. New TWI in V1-V3 and III compared to prior EKG from 02/10/2020, Normal NV, QRS, QT intervals. EKG not consistent with bruagada, hocm, ARVD, or WPW. On reassessment, he has a heart score of 2 today given EKG findings but is new compared to prior. Since light-headedness symptoms x 8 hrs, unlikely ot be ACS given duration and negative troponin x2. Patient currently denies any chest pain or shortness of breath. Patient's initial troponin and D-dimer within normal limit. However given the findings on EKG, have instructed the patient to follow-up with a residential lawn specialist in the next few days for further evaluation of T wave inversion in V1-V3 as this is unlikely to be persistent juvenile T wave inversions given her age. Patient's heart score is 2 today and patient does not have existing risk factors for syncope, I do not think patient will benefit from inpatient observation at this time. However, because of the findings on EKG, have given patient explicit instruction to follow-up with cardiology for further evaluation of cardiac issues. Patient tolerated PO in the ED and reports symptomatic improvement. No family hx of sudden cardiac . Patient also requests to follow up with PCP for headache evaluation. Neuro intact currently, no focal weakness or vomiting. I have given patient follow up with PCP. Disposition: Discharge. Patient counseled regarding diagnostic impression, treatment plan. Patient given ED strict return precautions to return for continuation, worsening, or development of new symptoms. Instructed to f/u w/ PCP regarding symptoms today. Patient verbalized understanding. Lab Data: Labs: Lab Results 07/18/21 07/18/21 07/18/21 20:00 20:00 20:30 WBC 6.9 10^3/uL 10^3/ uL (4.0-10.0) RBC 4.65 10^6/uL 10^6 /uL (4.1-5.3) Hgb 13.0 g/dL g/dL (11.5-15.3) Hct 39.0 % % (37.0-47.0) MCV 83.9 fl fl (81-99) MCH 28.0 pg pg (28.0-34.0) MCHC 33.3 g/dL g/dL (30.0-36.0) RDW 13.0 % % (12.1-15.1) Plt Count 206 10^3/cmm 10^3 /cmm (130-400) MPV 9.7 fL fL (7.4-10.4) Neut % (Auto) 60.0 % % Lymph % (Auto) 30.9 % % Woods % (Auto) 5.5 % % Eos % (Auto) 2.9 % % Baso % (Auto) 0.6 % % Neut # (Auto) 4.10 10^3/uL 10^3 /uL (1.8-7.7) Lymph # (Auto) 2.1 10^3/uL 10^3/ uL (0.8-4.8) Woods # (Auto) 0.4 10^3/uL 10^3/ uL (0.2-0.9) Eos # (Auto) 0.2 10^3/uL 10^3/ uL (0.0-0.8) Baso # (Auto) 0.0 10^3/uL 10^3/ uL (0.0-0.1) Nucleated RBC % (a uto) 0 % % Nucleated RBCs # 0.0 /100WBC /100W BC PT INR APTT D-Dimer Sodium Potassium Chloride Carbon Dioxide Anion Gap BUN Creatinine GFR Calculation Glucose Calculated Osmolal ity Calcium Total Bilirubin AST ALT Alkaline Phosphata se Troponin T Gen 5 n g/L NT-Pro-B Natriuret Pep Total Protein Albumin Globulin Lipase Urine Color Yellow (Yellow) Urine Appearance Clear (CLEAR) Urine pH 8 H (5-7) Ur Specific Gravit y 1.010 (1.005-1.030) Urine Protein Neg (Negative) Urine Glucose (UA) Norm (Normal) Urine Ketones Negative (Negative) Urine Blood Neg (Negative) Urine Nitrate Negative (Negative) Urine Bilirubin Neg (Negative) Prot Sulfosalicyli c Acd Negative (Negative) Urine Urobilinogen Norm mg/dL mg/dL (Negative) Ur Leukocyte Shauna ase Negative (Negative) Urine HCG, Qual Negative (Negative) 07/18/21 07/18/21 07/18/21 20:30 20:30 20:30 WBC RBC Hgb Hct MCV MCH MCHC RDW Plt Count MPV Neut % (Auto) Lymph % (Auto) Woods % (Auto) Eos % (Auto) Baso % (Auto) Neut # (Auto) Lymph # (Auto) Woods # (Auto) Eos # (Auto) Baso # (Auto) Nucleated RBC % (a uto) Nucleated RBCs # PT 13.00 SECONDS SEC ONDS (12.1-14.9) INR 0.95 (0.8-1.2) APTT 30.0 SECONDS SECO NDS (23.9-36.7) D-Dimer Sodium 137 mmol/L mmol/L (136-145) Potassium 3.6 mmol/L mmol/L (3.5-5.1) Chloride 101 mmol/L mmol/L (98-107) Carbon Dioxide 28 mmol/L mmol/L (22-29) Anion Gap 11.6 (5-19) BUN 11 mg/dL mg/dL (6-20) Creatinine 0.7 mg/dL mg/dL (0.5-0.9) GFR Calculation 93.2 mL/min mL/mi n (90-130) Glucose 65 mg/dL mg/dL (65-115) Calculated Osmolal ity 282 mOsm/kg L mOs m/kg (285-295) Calcium 9.0 mg/dL mg/dL (8.5-10.5) Total Bilirubin 0.2 mg/dL mg/dL (0.15-1.2) AST 19 U/L U/L (0-32) ALT 15 U/L U/L (0-33) Alkaline Phosphata se 101 IU/L IU/L (35-105) Troponin T Gen 5 n g/L 6 ng/L ng/L (0-10) NT-Pro-B Natriuret Pep 160 pg/mL H pg/mL (0-125) Total Protein 6.5 g/dL L g/dL (6.6-8.7) Albumin 4.1 g/dL g/dL (3.5-5.2) Globulin 2.4 g/dL g/dL (1.3-4.6) Lipase 72 U/L H U/L (13-60) Urine Color Urine Appearance Urine pH Ur Specific Gravit y Urine Protein Urine Glucose (UA) Urine Ketones Urine Blood Urine Nitrate Urine Bilirubin Prot Sulfosalicyli c Acd Urine Urobilinogen Ur Leukocyte Shauna ase Urine HCG, Qual 07/18/21 20:30 WBC RBC Hgb Hct MCV MCH MCHC RDW Plt Count MPV Neut % (Auto) Lymph % (Auto) Woods % (Auto) Eos % (Auto) Baso % (Auto) Neut # (Auto) Lymph # (Auto) Woods # (Auto) Eos # (Auto) Baso # (Auto) Nucleated RBC % (a uto) Nucleated RBCs # PT INR APTT D-Dimer 0.44 ug/mIFEU ug/ mIFEU (0-0.59) Sodium Potassium Chloride Carbon Dioxide Anion Gap BUN Creatinine GFR Calculation Glucose Calculated Osmolal ity Calcium Total Bilirubin AST ALT Alkaline Phosphata se Troponin T Gen 5 n g/L NT-Pro-B Natriuret Pep Total Protein Albumin Globulin Lipase Urine Color Urine Appearance Urine pH Ur Specific Gravit y Urine Protein Urine Glucose (UA) Urine Ketones Urine Blood Urine Nitrate Urine Bilirubin Prot Sulfosalicyli c Acd Urine Urobilinogen Ur Leukocyte Shauna ase Urine HCG, Qual Discharge Plan Discharge Patient Disposition: Home Clinical Impression: Light headedness Condition: Stable Prescriptions: No Action ibuprofen 800 mg tablet 800 mg PO Q8H PRN (Reason: pain) Qty: 60 RF: 0 fluconazole 150 mg tablet 150 mg PO .every 72 hours Qty: 3 RF: 0 buprenorphine HCl 8 mg tablet, sublingual 8 mg SUBLINGUAL BID RF: 0 duloxetine 60 mg Capsule, Delayed Rel Sprinkle 60 mg PO BID RF: 0 aripiprazole 10 mg tablet 30 mg PO DAILY RF: 0 diazepam 10 mg tablet 10 mg PO TID RF: 0 Discharge Orders: Discharge ED (Routine); Ordered 07/18/21 Ordered By: Yang Montiel Referrals: Elliott Herrera MD [Primary Care Provider] - Discharge Diet: Advance as tolerated Discharge Activity: Resume usual activity Patient Instructions: Syncope (ED) Activity Restrictions/Additional Instructions: Our cyanide case hardener will have you follow-up with licensed practical nurse instructor in the next few days. You would be expected to have a phone call with our cyanide case hardener who will put you on the schedule. Coding Level of Care Code ED Power Transformer Inspector for Karlene Jon
[2021-07-18 20:46] LABS: Bilirubin Urine Neg (Negative); Blood Urine Neg (Negative); Glucose Urine UA Norm (Normal); Ketones Urine Negative (Negative); Leukocyte Esterase Urine Negative (Negative); Nitrate Urine Negative (Negative); Protein Urine Neg (Negative); Sulfosalicylic Acid Urine Negative (Negative); Urobilinogen Urine Norm (Negative)
[2021-07-18 21:10] LABS: INR 0.95 (0.8-1.2)
[2021-07-18 21:15] LABS: Troponin T (5th) Once 6 ng/L (0-10)
[2021-07-18 21:19] LABS: Alanine Aminotransferase 15 U/L (0-33); Albumin Level 4.1 g/dL (3.5-5.2); Alkaline Phosphatase 101 IU/L (35-105); Anion Gap 11.6 (5-19); Aspartate Amino Transferase 19 U/L (0-32); Blood Urea Nitrogen 11 mg/dL (6-20); Carbon Dioxide 28 mmol/L (22-29); Chloride 101 mmol/L (98-107); Globulin 2.4 g/dL (1.3-4.6); Glomerular Filtration Rate 93.2 mL/min (90-130); Glucose 65 mg/dL (65-115); Lipase 72 U/L (13-60); NT Pro B Type Natriuretic Pept 160 pg/mL (0-125); Osmolality Calculated 282 mOsm/kg (285-295); Potassium 3.6 mmol/L (3.5-5.1); Sodium 137 mmol/L (136-145); Total Bilirubin 0.2 mg/dL (0.15-1.2); Total Protein 6.5 g/dL (6.6-8.7)
[2021-07-18 21:38] LABS: D Dimer 0.44 ug/mIFEU (0-0.59)
--- NOTE | 2021-07-18 21:47 | PC.NURSE ---
visual acuiity done. right eye:20/50 left eye:20/30 both: 20/25
[2021-07-18 21:53] VITALS: BP 118/76; PULSE 57; RESP 16; O2SAT 99
--- NOTE | 2021-07-20 10:13 | DCPLANNER ---
Addendum entered by Sophie Richard 11/09/21 15:09: Patient had a follow up appointment scheduled for 07.31.[address] Williamson at [facility] - patient did attend appointment. Patient had a follow up appointment scheduled for 07.24.[address] Jefferson - appointment was cancelled. Original Note: branch store manager had message to schedule a follow up appointment for patient with heart care and GI. branch store manager called heart care, spoke with Ashlie, gave clinic patients information. A follow up appointment was scheduled for patient for Saturday July 31, 2021 at 12:[address] Williamson. branch store manager called patient and gave patient the appointment information. branch store manager also had message to schedule a follow up appointment for patient with GI. branch store manager spoke with patient and explained to patient that [facility] did not have a GI physician, but that [facility] did have a internal medicine physician that onsite case manager sends GI referrals to. Patient stated that would be fine. branch store manager called the office of Dr. Jefferson, spoke with Wendi, gave clinic patients information. A follow up appointment was scheduled for Saturday, July 24, 2021 at 1:[address] Jefferson, clinic will call patient with appointment information.
== END 2021-07-18 21:57 | disposition home or self-care (01) ==
PROVIDERS: Emergency Provider Emergency Medicine; PCP Family Medicine
DX: R42 Dizziness and giddiness (principal); F17.290 Nicotine dependence, other tobacco product, uncomplicated
CPT/HCPCS: 80053; 81003; 81025; 83690; 83880; 84484; 85025; 85378; 85610; 85730; 93005; 96360; 99283; J7030

== ENCOUNTER 2021-07-24 13:59 | Emergency (ER) | payer MEDICARE, MEDICAID, SELFPAY ==
[2021-07-24 14:19] VITALS: BP 138/82; PULSE 67; RESP 35; TEMP 36.6; O2SAT 100
--- NOTE | 2021-07-24 14:27 | ECG_ITS ---
[facility] Test Date: 2021-07-24 Pat Name: Brittani Carballo Department: Room: Gender: Female Drug Safety Data Management Specialist: : 1980 Requested By: Sae Davila Order Number: [id number] Deniz MD: Juan A Jha M.D. Measurements Intervals [place] Rate: 66 P: 33 FL: 173 QRS: 7 QRSD: 97 T: 3 QT: 396 QTc: 418 Interpretive Statements SINUS RHYTHM Compared to ECG 07/18/2021 20:54:31 Sinus bradycardia no longer present Electronically Signed On 07-24-2021 17:29:51 CDT by Juan A Jha M.D. [email or web address] hospitalAutomilekettering memorial hospitalLiftago/store/NU/[id number] f
--- NOTE | 2021-07-24 14:27 | XR_ITS ---
WS: [id number] XR chest 1V portable [id number] REASON FOR EXAM: dyspnea/cough FINDINGS: Chest is unchanged compared to previous examination of 02/10/2020. The heart and mediastinum are within normal limits. Calcified granulomatous changes in both hemithoraces. No active pulmonary parenchymal pleural disease . No significant abnormality of the bony thorax. XR/XR chest 1V portable [id number] IMPRESSION: Stable chest with no acute abnormality.
--- NOTE | 2021-07-24 14:27 | USCV_ITS ---
Brittani Carballo Age: 41 Gender: F : 1980 Exam Date: 07/24/2021 14:50 Ordering Phys: Sae Gomez DO Technologist: Exam Location: [facility] [place] Indication: LEG DISCOMFORT, DYSPNEA PROCEDURES: Venous duplex imaging was performed in bilateral lower extremities. The following venous structures were evaluated: common femoral vein, profunda vein, proximal portion of the greater saphenous vein, superficial femoral vein, and the popliteal vein. In addition, the posterior tibial and peroneal trunk were evaluated. Serial compression, augmentation maneuvers, and spectral Doppler flow evaluation were performed. FINDINGS: Normal 2-D Doppler and augmentation and compressibility throughout the lower extremity venous structures. Additional imaging through the proximal calf veins also reveals no thrombus. Limited evaluation of the greater saphenous vein is patent with no thrombus. CONCLUSIONS No DVT bilateral lower extremities. Dr. Nancy Baig DO (Electronically Signed) Final Date: 24 July 2021 16:19 S
[2021-07-24 15:00] LABS: Basophils # 0.1 10^3/uL (0.0-0.1); Basophils % 0.5 %; Eosinophils # 0.1 10^3/uL (0.0-0.8); Eosinophils % 1.2 %; Hematocrit 43.6 % (37.0-47.0); Hemoglobin 15.1 g/dL (11.5-15.3); Lymphocytes # 2.8 10^3/uL (0.8-4.8); Lymphocytes % 30.9 %; Mean Corpuscular HGB Conc 34.6 g/dL (30.0-36.0); Mean Corpuscular Hemoglobin 27.8 pg (28.0-34.0); Mean Corpuscular Volume 80.3 fl (81-99); Monocytes # 0.5 10^3/uL (0.2-0.9); Monocytes % 4.9 %; Neutrophils # 5.73 10^3/uL (1.8-7.7); Neutrophils % 62.4 %; Nucleated Red Blood Cells % 0 %; Platelet Count 232 10^3/cmm (130-400); Red Blood Count 5.43 10^6/uL (4.1-5.3); Red Cell Distribution Width 12.7 % (12.1-15.1); White Blood Count 9.2 10^3/uL (4.0-10.0)
--- NOTE | 2021-07-24 15:05 | W.ED.DIZZY ---
HPI - Dizziness General: Chief Complaint: Dizziness Stated Complaint: DIFF BREATHING, DIZZY, LIGHT HEADED, BLE HEAVY Time Seen by Provider: 07/24/21 14:13 History of Present Illness: HPI Narrative: 41-year-old female comes in complaining of dizziness bilateral lower extremity heaviness tingling. She feels like she cannot think well chills like she needs to clear her throat and states she feels like she has fluid on her heart she has some chest discomfort as well. She is a history of anxiety and is stopped some of her medications recently. She denied having any chest discomfort time that she was seen. No vomiting or fever no myalgias. MD elicited complaint: dizziness and lightheadedness Onset (ago): hour(s) Timing: sudden onset Description: room spinning and lightheadedness Context: change in medication Exacerbating factors: nothing Relieving factors: nothing Associated symptoms: Reports chest pain, malaise, nausea and weakness; Denies abnormal vaginal bleeding, change in hearing, chills, diaphoresis, ear discharge, ear pressure, fevers/chills, headache(s), nasal congestion, palpitations, rash, short of breath, syncope, tinnitus or vomiting Associated neuro symptoms: Reports extremity weakness and numbness in extremities; Deny confusion, difficulty speaking, dysphagia, diplopia, facial numbness, facial weakness, gait changes or visual changes Review of Systems Const: Reports: malaise; Denies: chills or diaphoresis ENMT: Denies: ear discharge, change in hearing, tinnitus or nasal congestion Card: Reports: chest pain; Denies: palpitations or syncope Resp: Denies: dyspnea, productive cough or non-productive cough GI: Reports: nausea; Denies: vomiting or dysphagia : Denies: flank pain, difficulty voiding, dysuria, urinary frequency or urinary urgency Skin/Breast: Denies: rash or pruritus Neuro: Reports: numbness in extremities; Denies: headache(s) or confusion PFSH ED PFSH: Medical History (Updated 07/26/21 @ 00:01 by ) Arthritis Hypokalemia MRSA (methicillin resistant staph aureus) culture positive No pertinent past medical history neghx: htn,dm,thyroid,dvt/pe Surgical History S/P foot surgery, right (~1998) and right leg, right arm S/P tubal ligation 03/19/2020- bilateral tubal ligation via modified [place], [place]. 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 Female Reproductive History: Date of last menstrual period: 04/26/20 Physical Exam Const: COMMON NORMALS: no acute distress GENERAL APPEARANCE: cooperative and comfortable ORIENTATION/CONSCIOUSNESS: Yes awake, Yes oriented to person, Yes oriented to place and Yes oriented to time HENMT: COMMON NORMALS: normocephalic, atraumatic and hearing grossly normal bilaterally HEAD & SCALP: normocephalic and atraumatic Neck/C-Spine: COMMON NORMALS: no JVD Resp: COMMON NORMALS: normal respiratory effort, No retractions, No use of accessory muscles and clear to auscultation bilaterally AUSCULTATION: clear to auscultation bilaterally Cardio: COMMON NORMALS: no JVD, regular rate, regular rhythm and No murmurs present (Cardio) RATE: regular rate RHYTHM: regular rhythm GI: COMMON NORMALS: Soft to palpation and No hepatosplenomegaly present AUSCULTATION: Yes normoactive bowel sounds PALPATION: Yes Soft to palpation, No Tenderness to palpation present (GI), No Guarding due to palpation present (GI) and Yes No hepatosplenomegaly present Extremity: COMMON NORMALS: normal to inspection, capillary refill normal, no clubbing, cyanosis or edema, no calf tenderness and no pedal edema Neuro: SENSORIUM/ORIENTATION: Yes oriented to person, Yes oriented to place and Yes oriented to time Skin: COMMON NORMALS: no rashes or lesions noted GENERAL SKIN EXAM: no rashes or lesions noted Course Vital Signs: Vital signs: Vital Signs Temperature 97.9 F 07/24/21 14:19 Pulse Rate 55 L 07/24/21 17:14 Respiratory Rate 17 07/24/21 17:14 Blood Pressure 101/75 07/24/21 17:14 Pulse Oximetry 99 07/24/21 17:14 MDM - Dizziness MDM Narrative: Medical decision making narrative: Labs imaging and EKG reviewed. Discussed with the patient. Her symptoms are resolved she is feeling much better she is rather wants to go home now. EKGs and troponins negative think she is fine to go home at this point encourage her to take a baby aspirin daily and we will set her up for outpatient stress testing return if has further problems. Lab Data: Labs: Lab Results 07/24/21 07/24/21 07/24/21 14:40 14:40 14:42 WBC 9.2 10^3/uL 10^3/ uL (4.0-10.0) RBC 5.43 10^6/uL H 10 ^6/uL (4.1-5.3) Hgb 15.1 g/dL g/dL (11.5-15.3) Hct 43.6 % % (37.0-47.0) MCV 80.3 fl L fl (81-99) MCH 27.8 pg L pg (28.0-34.0) MCHC 34.6 g/dL g/dL (30.0-36.0) RDW 12.7 % % (12.1-15.1) Plt Count 232 10^3/cmm 10^3 /cmm (130-400) MPV 11.0 fL H fL (7.4-10.4) Neut % (Auto) 62.4 % % Lymph % (Auto) 30.9 % % [place] % (Auto) 4.9 % % Eos % (Auto) 1.2 % % Baso % (Auto) 0.5 % % Neut # (Auto) 5.73 10^3/uL 10^3 /uL (1.8-7.7) Lymph # (Auto) 2.8 10^3/uL 10^3/ uL (0.8-4.8) [place] # (Auto) 0.5 10^3/uL 10^3/ uL (0.2-0.9) Eos # (Auto) 0.1 10^3/uL 10^3/ uL (0.0-0.8) Baso # (Auto) 0.1 10^3/uL 10^3/ uL (0.0-0.1) Nucleated RBC % (a uto) 0 % % Nucleated RBCs # 0.0 /100WBC /100W BC Specimen Type Sample Site ABG pH ABG pCO2 ABG pO2 ABG HCO3 ABG O2 Saturation ABG Base Excess Rohan Test A-a O2 Gradient Hematocrit Hgb O2 Saturation Carboxyhemoglobin Methemoglobin Total Hemoglobin Ionized Calcium O2 Delivery Device FiO2 Home Health Clinical Supervisor ID Sodium 135 mmol/L L mmol /L (136-145) Potassium 3.5 mmol/L mmol/L (3.5-5.1) Chloride 97 mmol/L L mmol/ L (98-107) Carbon Dioxide 25 mmol/L mmol/L (22-29) Anion Gap 16.5 (5-19) BUN 11 mg/dL mg/dL (6-20) Creatinine 0.8 mg/dL mg/dL (0.5-0.9) GFR Calculation 79.9 mL/min L mL/ min (90-130) Glucose 78 mg/dL mg/dL (65-115) Calculated Osmolal ity 278 mOsm/kg L mOs m/kg (285-295) Calcium 9.4 mg/dL mg/dL (8.5-10.5) Total Bilirubin 0.4 mg/dL mg/dL (0.15-1.2) AST 21 U/L U/L (0-32) ALT 17 U/L U/L (0-33) Alkaline Phosphata se 108 IU/L H IU/L (35-105) Creatine Kinase 135 U/L U/L (26-192) Troponin T Baselin e 6 ng/L ng/L (0-10) Troponin T 120 Min madelin Delta Troponin T Total Protein 7.9 g/dL g/dL (6.6-8.7) Albumin 4.4 g/dL g/dL (3.5-5.2) Globulin 3.5 g/dL g/dL (1.3-4.6) Urine Color Urine Appearance Urine pH Ur Specific Gravit y Urine Protein Urine Glucose (UA) Urine Ketones Urine Blood Urine Nitrate Urine Bilirubin Prot Sulfosalicyli c Acd Urine Urobilinogen Ur Leukocyte Shauna ase 07/24/21 07/24/21 07/24/21 15:20 15:50 16:46 WBC RBC Hgb Hct MCV MCH MCHC RDW Plt Count MPV Neut % (Auto) Lymph % (Auto) [place] % (Auto) Eos % (Auto) Baso % (Auto) Neut # (Auto) Lymph # (Auto) [place] # (Auto) Eos # (Auto) Baso # (Auto) Nucleated RBC % (a uto) Nucleated RBCs # Specimen Type Arterial Sample Site Brachial, right ABG pH 7.40 (7.35-7.45) ABG pCO2 39.7 mmHg mmHg (35-45) ABG pO2 78.2 mmHg L mmHg (80.0-100.0) ABG HCO3 24.8 mmol/L mmol/ L (22-26) ABG O2 Saturation 96.6 ABG Base Excess 0.1 mmol/L mmol/L (-2.0-2.0) Rohan Test N/a A-a O2 Gradient 2.9 mmHg L mmHg (5-10) Hematocrit 44.0 % % (37-47) Hgb O2 Saturation 95.8 % % (95-100) Carboxyhemoglobin 0.7 %THgb %THgb (0.4-20.1) Methemoglobin 0.2 % L % (0.4-1.5) Total Hemoglobin 14.4 g/dL g/dL (12-16) Ionized Calcium 1.2 mmol/L mmol/L (1.1-1.4) O2 Delivery Device Room air FiO2 21.0 % % Home Health Clinical Supervisor ID glc Sodium 138.0 mmol/L mmol /L (131-143) Potassium 3.5 mmol/L mmol/L (3.5-5.0) Chloride Carbon Dioxide Anion Gap BUN Creatinine GFR Calculation Glucose 100.0 mg/dL mg/dL (70-115) Calculated Osmolal ity Calcium Total Bilirubin AST ALT Alkaline Phosphata se Creatine Kinase Troponin T Baselin e Troponin T 120 Min madelin 6.00 ng/L ng/L (0-10) Delta Troponin T 0 ABS# ABS# (0-10) Total Protein Albumin Globulin Urine Color Yellow (Yellow) Urine Appearance Clear (CLEAR) Urine pH 8 H (5-7) Ur Specific Gravit y 1.005 (1.005-1.030) Urine Protein Neg (Negative) Urine Glucose (UA) Norm (Normal) Urine Ketones 1+ H (Negative) Urine Blood Neg (Negative) Urine Nitrate Negative (Negative) Urine Bilirubin Neg (Negative) Prot Sulfosalicyli c Acd Negative (Negative) Urine Urobilinogen Norm mg/dL mg/dL (Negative) Ur Leukocyte Shauna ase Negative (Negative) Discharge Plan Discharge Patient Disposition: Home Clinical Impression: Atypical chest pain Condition: Stable Prescriptions: No Action ibuprofen 800 mg tablet 800 mg PO Q8H PRN (Reason: pain) Qty: 60 RF: 0 fluconazole 150 mg tablet 150 mg PO .every 72 hours Qty: 3 RF: 0 buprenorphine HCl 8 mg tablet, sublingual 8 mg SUBLINGUAL BID RF: 0 duloxetine 60 mg Capsule, Delayed Rel Sprinkle 60 mg PO BID RF: 0 aripiprazole 10 mg tablet 30 mg PO DAILY RF: 0 diazepam 10 mg tablet 10 mg PO TID RF: 0 Discharge Orders: Discharge ED (Routine); Ordered 07/24/21 Ordered By: Sae Gomez Referrals: Elliott Herrera MD [Primary Care Provider] - Discharge Diet: Usual diet Discharge Activity: Limit activity as instructed Patient Instructions: Opioid Safety Coding Level of Care Code ED Gathering Machine Setter for Chg Fwd Exam Comprehensive
[2021-07-24 15:18] LABS: Alanine Aminotransferase 17 U/L (0-33); Albumin Level 4.4 g/dL (3.5-5.2); Alkaline Phosphatase 108 IU/L (35-105); Aspartate Amino Transferase 21 U/L (0-32); Blood Urea Nitrogen 11 mg/dL (6-20); Calcium 9.4 mg/dL (8.5-10.5); Carbon Dioxide 25 mmol/L (22-29); Chloride 97 mmol/L (98-107); Creatine Phosphokinase 135 U/L (26-192); Globulin 3.5 g/dL (1.3-4.6); Glomerular Filtration Rate 79.9 mL/min (90-130); Glucose 78 mg/dL (65-115); Osmolality Calculated 278 mOsm/kg (285-295); Sodium 135 mmol/L (136-145); Total Bilirubin 0.4 mg/dL (0.15-1.2); Total Protein 7.9 g/dL (6.6-8.7)
[2021-07-24 15:20] LABS: Anion Gap 16.5 (5-19); Potassium 3.5 mmol/L (3.5-5.1)
[2021-07-24] MEDS: ondansetron 2 mg/ML SDV 2 mL 4 MG IVP (15:39)
[2021-07-24] MEDS: sodium chloride 0.9% 1,000 ML 999 ML IV (15:39)
[2021-07-24 15:54] LABS: Add Urine Microscopic? NO; Charge for UA Resulting for Rev
[2021-07-24 16:01] LABS: Troponin(5th) Baseline 6 ng/L (0-10)
[2021-07-24 16:04] LABS: ABG PCO2 39.7 mmHg (35-45); Alveolar-Arterial Oxygen Gradi 2.9 mmHg (5-10); Base Excess ABG 0.1 mmol/L (-2.0-2.0); Blood Gas Operator Identificat glc; Blood Gas Sample Site Brachial, right; Blood Gas Sample Type Arterial; Carboxyhemoglobin 0.7 %THgb (0.4-20.1); HCO3 ABG 24.8 mmol/L (22-26); HGB O2 Sat 95.8 % (95-100); Ionized Calcium Level - ABG 1.2 mmol/L (1.1-1.4); Methemoglobin 0.2 % (0.4-1.5); Oxygen Device ROOM AIR; Oxygen Saturation ABG 96.6; PO2 ABG 78.2 mmHg (80.0-100.0); Potassium Level - ABG 3.5 mmol/L (3.5-5.0); Total Hemoglobin 14.4 g/dL (12-16)
[2021-07-24 16:36] LABS: Bilirubin Urine Neg (Negative); Blood Urine Neg (Negative); Glucose Urine UA Norm (Normal); Ketones Urine 1+ (Negative); Leukocyte Esterase Urine Negative (Negative); Nitrate Urine Negative (Negative); Protein Urine Neg (Negative); Specific Gravity, Urine 1.005 (1.005-1.030); Urine Appearance Clear (CLEAR); Urine Color Yellow (Yellow); Urobilinogen Urine Norm (Negative); pH Urine 8 (5-7)
[2021-07-24 17:14] VITALS: BP 101/75; PULSE 55; RESP 17; O2SAT 99
[2021-07-24 17:17] LABS: Sulfosalicylic Acid Urine Negative (Negative)
--- NOTE | 2021-07-24 17:21 | ECG_ITS ---
[facility] Test Date: 2021-07-24 Pat Name: Brittani Carballo Department: Room: Gender: Female Order Packer: : 1980 Requested By: Sae Davila Order Number: [id number] Deniz MD: Juan A Jha M.D. Measurements Intervals [place] Rate: 57 P: 42 [place]: 157 QRS: 32 QRSD: 100 T: 15 QT: 428 QTc: 417 Interpretive Statements SINUS BRADYCARDIA WITH SINUS ARRHYTHMIA Compared to ECG 07/24/2021 14:27:39 Sinus rhythm no longer present Electronically Signed On 07-24-2021 17:33:16 CDT by Juan A Jha M.D. [email or web address] [email or web address] centralUmaChaka Mediadunlap memorial hospitalClaritics/store/OM/[id number]
[2021-07-24 18:03] LABS: Troponin 5 2HR Delta 0 ABS# (0-10)
--- NOTE | 2021-07-25 14:37 | DCPLANNER ---
advertising assistant manager had message to schedule an outpatient stress test for patient. advertising assistant manager faxed signed order to centralized scheduling, who will call patient with appointment information.
--- NOTE | 2021-08-30 15:58 | DCPLANNER ---
Addendum entered by Sophie Richard 11/10/21 12:13: Patient had a follow up appointment scheduled for an outpatient stress test - patient did attend appointment. Original Note: Patient has an outpatient stress test scheduled for Friday, August 30, 2021 at 1:00.
== END 2021-07-24 18:40 | disposition home or self-care (01) ==
PROVIDERS: Emergency Provider Family Medicine; PCP Family Medicine
DX: R07.89 Other chest pain (principal); F17.290 Nicotine dependence, other tobacco product, uncomplicated
CPT/HCPCS: 36600; 71045; 80051; 80053; 81003; 82330; 82550; 82805; 84484; 85025; 93005; 93970; 96361; 96374; 99283; J2405; J7030

== ENCOUNTER 2021-07-30 09:03 | Outpatient (CLI) | payer MEDICARE, MEDICAID, SELFPAY ==
--- NOTE | 2021-07-30 09:30 | US_ITS ---
WS: [id number] Complete ABDOMINAL ULTRASOUND HISTORY: LIVER ENZYMES ABNORMAL COMPARISON: 11/14/2019 Liver: 17.2 cm in length. Liver is very slightly enlarged. No mass or bile duct dilatation. Gallbladder: Normally distended with no gallstones, wall thickening or pericholecystic fluid. Gallbladder wall thickness: 0.2 cm. Pancreas: Normal size and echogenicity. CBD: 0.3 cm. Right kidney: 10.8 cm x 4.8 cm x 4.1 cm. No mass, cortical thickening or hydronephrosis. Left kidney: 10.6 cm x 4.4 cm x 3.9 cm. No mass, cortical thickening or hydronephrosis. Spleen: Spleen is enlarged measuring 15.9 cm in length. No mass within the spleen. Abdominal aorta and IVC are within normal limits. No ascites. US/US abdomen complete* [id number] IMPRESSION: 1. Moderate splenomegaly. Similar to the prior study of 11/14/2019. 2. Normal gallbladder. 3. Very mild enlargement of the liver.
== END 2021-07-30 09:04 | disposition home or self-care (01) ==
LOC: RAD 09:09
PROVIDERS: PCP Family Medicine; Visit Provider Family Medicine
DX: R74.8 Abnormal levels of other serum enzymes (principal); R16.1 Splenomegaly, not elsewhere classified
CPT/HCPCS: 76700

== ENCOUNTER 2021-09-07 11:53 | Outpatient (CLI) | payer MEDICARE, MEDICAID, SELFPAY ==
--- NOTE | 2021-09-07 12:03 | USCV_ITS ---
Brittani Carballo Age: 41 Gender: F : 1980 Exam Date: 09/07/2021 13:05 Ordering Phys: Robel Owens M.D ([email or web address]) Technologist: Jeannette Juarez Exam Location: [facility] Indication: SOB BP: 104 / 72 HR: 82 Rhythm: Sinus Technical Quality: Adequate MEASUREMENTS (Male / Female) Normal Values 2D ECHO LV Diastolic Diameter PLAX 4.4 cm 4.2 - 5.9 / 3.9 - 5.3 cm LV Systolic Diameter PLAX 2.9 cm LV Chamber Size 3.2 cm IVS Diastolic Thickness 1.2 cm 0.6 - 1.0 / 0.6 - 0.9 cm IVS Systolic Thickness 1.4 cm LVPW Diastolic Thickness 1.2 cm 0.6 - 1.0 / 0.6 - 0.9 cm LVPW Systolic Thickness 1.5 cm RV Chamber Size 2.5 cm LVOT Diameter 2.0 cm LV Ejection Fraction 2D Teich 63.3 % LV Ejection Fraction MOD 2C 72.8 % LV Ejection Fraction 2C AL 71.8 % LA Diameter 3.0 cm LA Width 2.3 cm LA Height 3.5 cm RA Width 2.3 cm RA Height 2.8 cm Aorta at Sinotubular Diameter 2.9 cm M-MODE LV Diastolic Diameter MM 4.8 cm 4.2 - 5.9 / 3.9 - 5.3 cm LV Systolic Diameter MM 3.1 cm LV Ejection Fraction MM Teich 65.6 % IVS Diastolic Thickness MM 0.8 cm 0.6 - 1.0 / 0.6 - 0.9 cm IVS Systolic Thickness MM 1.2 cm LVPW Diastolic Thickness MM 0.6 cm 0.6 - 1.0 / 0.6 - 0.9 cm LVPW Systolic Thickness MM 1.6 cm RV Diastolic Diameter MM 1.1 cm Aortic Annulus Diameter 3.4 cm LA Ao Ratio MM 1.1 MV E Point Septal Separation 0.3 cm DOPPLER AV Peak Velocity 136.0 cm/s LVOT Peak Velocity 111.0 cm/s AV Area Cont Eq vti 3.2 cm squared AV Area Cont Eq pk 2.7 cm squared MV Area PHT 6.7 cm squared Mitral E to A Ratio 1.2 MV E' Velocity 49.0 cm/s Mitral E to MV E' Ratio 4.4 Mitral E to LV E' Lateral Ratio 4.5 Mitral E to LV E' Septal Ratio 4.3 TR Peak Velocity 272.7 cm/s TR Peak Gradient 29.7 mmHg TR Mean Velocity 198.1 cm/s TR Mean Gradient 18.5 mmHg TR Velocity Time Integral 66.4 cm TV Peak E Velocity 80.0 cm/s Right Atrial Pressure 3.0 mmHg Pulmonary Artery Systolic Pressu 32.7 mmHg PV Peak Velocity 63.0 cm/s RV Acceleration Time 0.1 s RV Ejection Time 0.3 s RV AcT/ET 0.3 FINDINGS Left Ventricle Normal left ventricular size. LV systolic function is normal with EF of 55-60%. No regional wall motion abnormalities. Normal diastolic filling pattern. Right Ventricle The right ventricle is normal in size and function. Right Atrium The right atrium is normal in size. Left Atrium The left atrium is normal in size. Mitral Valve Structurally normal mitral valve without significant stenosis or prolapse. There is no mitral regurgitation. Aortic Valve Structurally normal aortic valve without significant sclerosis or stenosis. There is no aortic regurgitation. Tricuspid Valve Structurally normal tricuspid valve without significant stenosis . Mild tricuspid regurgitation. Pulmonary artery systolic pressure is normal. Pulmonic Valve Structurally normal pulmonic valve without significant stenosis. There is no pulmonic regurgitation. Pericardium Normal pericardium without effusion. Aorta Normal ascending aorta dimension. CONCLUSIONS LV systolic function is normal with EF of 55-60% Normal diastolic function Mild tricuspid regurgitation No comparison studies are available Robel Owens MD (Electronically Signed) Final Date: 11 September 2021 13:13 S
[2021-09-07 12:16] VITALS: BMI 28.8
--- NOTE | 2021-09-07 12:23 | ECG_ITS ---
[facility] Test Date: 2021-09-07 Pat Name: Brittani Carballo Department: Room: Gender: Female Glue Mounter Operator: Cecilia Jennings : 1980 Requested By: Robel Owens Order Number: [id number] Deniz MD: Robel Owens M.D. Interpretive Statements NAME OF STUDY: TREADMILL STRESS TEST INDICATION: [Chest Pain; Chest Pain, ] EXERCISE DATA: The patient was exercised by Atif protocol. Baseline heart rate was 77 beats per minute. Baseline blood pressure was 144/75 millimeters of mercury. Target heart rate was 153 beats per minute. Maximum heart rate achieved was 158, which was 103% of the target heart rate. Maximum blood pressure was 135/63 millimeters of mercury. Total exercise time was 7 minutes 32 seconds. Maximum METs achieved was 10.2 maximum VO2 was 35.7. The reason for ending the test was completion of protocol. The patient complained of shortness of breath during the stress test, which then resolved at the end of the test. ELECTROCARDIOGRAM: BASELINE: Showed sinus rhythm, normal axis, no significant ST-T changes at the baseline noted. [] EXERCISE: At the peak exercise level, [] No significant ST-T changes suggestive of ischemia noted. [] RECOVERY: During the recovery period, heart rate dropped appropriately. No significant ST-T changes in the recovery suggestive of ischemia noted. [] CONCLUSION: 1. Exercise capacity good. 2. Heart rate response was appropriate 3. Blood pressure response was appropriate 4. Symptoms not suggestive of ischemia. 5. Exercise stress test is negative for ischemia. Electronically Signed On 10-13-2021 11:55:30 SILK SCREEN ETCHER by Robel Owens M.D. [email or web address]/[id number]
[2021-09-07 12:51] VITALS: BP 129/62; PULSE 86
== END 2021-09-07 11:54 | disposition home or self-care (01) ==
LOC: CDL 11:54
PROVIDERS: PCP Family Medicine; Visit Provider Internal Medicine
DX: R07.9 Chest pain, unspecified (principal); R06.02 Shortness of breath; I07.1 Rheumatic tricuspid insufficiency
CPT/HCPCS: 93017; 93306

== ENCOUNTER → 2021-10-07 14:31 | Outpatient (BNVA) | payer MEDICARE, MEDICAID, SELFPAY | PROVIDERS: PCP Family Medicine; Visit Provider Nurse Practitioner | DX: Z20.822 Contact with and (suspected) exposure to COVID-19 (principal) | CPT/HCPCS: 87635 ==

== ENCOUNTER 2021-10-11 14:57 | Emergency (ER) | payer MEDICARE, MEDICAID, SELFPAY ==
[2021-10-11 15:17] VITALS: BP 113/69; PULSE 59; RESP 16; TEMP 36.6; O2SAT 100
--- NOTE | 2021-10-11 17:00 | XRR_ITS ---
PROCEDURE INFORMATION: Exam: XR Chest Exam date and time: 10/11/2021 5:00 PM Age: 41 years old Clinical indication: Chest wall pain; Additional info: Chest pain TECHNIQUE: Imaging protocol: XR of the chest. Views: 1 view. COMPARISON: CR XR chest 1V portable [id number] 07/24/2021 2:43 PM FINDINGS: Lungs: Unremarkable. No consolidation. Pleural spaces: Unremarkable. No pleural effusion. No pneumothorax. Heart/Mediastinum: Unremarkable. No cardiomegaly. Bones/joints: Unremarkable. XR/XR chest 1V portable [id number] IMPRESSION: No acute findings.
--- NOTE | 2021-10-11 17:01 | ECG_ITS ---
[facility] Test Date: 2021-10-11 Pat Name: Brittani Carballo Department: Room: Gender: Female Family Practice Nurse Practitioner: : 1980 Requested By: Sae Davila Order Number: [id number] Deniz MD: Robel Owens M.D. Measurements Intervals [place] Rate: 60 P: 34 TN: 169 QRS: 11 QRSD: 98 T: 2 QT: 406 QTc: 407 Interpretive Statements SINUS RHYTHM POSSIBLE ANTERIOR MYOCARDIAL INFARCTION , OF INDETERMINATE AGE [30 ms Q WAVE IN V3/V4, OR R < 0.2 mV IN V4] Compared to ECG 07/24/2021 16:45:38 Myocardial infarct finding now present Sinus bradycardia no longer present Sinus arrhythmia no longer present Electronically Signed On 10-11-2021 20:36:57 FISHER EEL SPEAR by Robel Owens M.D. [id number]
--- NOTE | 2021-10-11 17:14 | W.ED.CHESTPA ---
HPI - Chest Pain General: Chief Complaint: Chest Pain Stated Complaint: Chest Pains, SOB, heart history Time Seen by Provider: 10/11/21 17:00 History of Present Illness: HPI narrative: 41-year-old female presents emergency room complaining of chest pain. She gets chest pain about every 30 minutes to last a few seconds and then resolves. She has some associated shortness of breath. She also has point tenderness on the chest wall pain is reproducible. She has had cardiac evaluation recently and is all been negative. MD complaint: chest pain Onset (ago): day(s) Timing of current episode: episodic Prior episodes: Yes Onset: during rest Pain location: left chest Pain radiation: left arm and left shoulder Severity: mild Quality: sharp Relieving factors: rest Exacerbating factors: inspiration and palpation Associated symptoms: Deny abdominal pain, diaphoresis, dyspnea, fever(s), leg edema, nausea, palpitations, sense of impending doom, syncope or vomiting Treatment prior to arrival: none Review of Systems Const: Denies: fever(s) or diaphoresis ENMT: Denies: throat pain, ear or mastoid pain, nasal discharge or nasal congestion Card: Denies: palpitations or syncope Resp: Denies: dyspnea GI: Denies: abdominal pain, nausea or vomiting : Denies: flank pain, difficulty voiding, dysuria, urinary frequency or urinary urgency Skin/Breast: Denies: rash or pruritus PFSH ED PFSH: Medical History Arthritis Hypokalemia MRSA (methicillin resistant staph aureus) culture positive No pertinent past medical history neghx: htn,dm,thyroid,dvt/pe Surgical History S/P foot surgery, right (~1998) and right leg, right arm S/P tubal ligation 03/19/2020- bilateral tubal ligation via modified [place], 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 Also reproducible with deep inspiration. Resp: COMMON NORMALS: normal respiratory effort, No retractions, No use of accessory muscles and clear to auscultation bilaterally AUSCULTATION: clear to auscultation bilaterally Cardio: COMMON NORMALS: no JVD, regular rate, regular rhythm and No murmurs present (Cardio) RATE: regular rate RHYTHM: regular rhythm GI: COMMON NORMALS: Soft to palpation and No hepatosplenomegaly present AUSCULTATION: Yes normoactive bowel sounds PALPATION: Yes Soft to palpation, No Tenderness to palpation present (GI), No Guarding due to palpation present (GI) and Yes No hepatosplenomegaly present Extremity: COMMON NORMALS: normal to inspection, capillary refill normal, no clubbing, cyanosis or edema, no calf tenderness and no pedal edema Neuro: SENSORIUM/ORIENTATION: Yes oriented to person, Yes oriented to place and Yes oriented to time Skin: COMMON NORMALS: no rashes or lesions noted GENERAL SKIN EXAM: no rashes or lesions noted Course Vital Signs: Vital signs: Vital Signs Temperature 97.9 F 10/11/21 15:17 Pulse Rate 52 L 10/11/21 18:00 Respiratory Rate 17 10/11/21 18:00 Blood Pressure 105/61 10/11/21 18:00 Pulse Oximetry 99 10/11/21 18:00 MDM - Chest Pain MDM Narrative: Medical decision making narrative: Atypical chest pain appears on exam to be musculoskeletal. Discharge home can continue use the ibuprofen previously prescribed follow-up with primary care or return to the emergency room has worsening problems. Lab Data: Labs: Lab Results 10/11/21 10/11/2121 17:18 17:18 17:18 WBC 5.2 10^3/uL 10^3/ uL (4.0-10.0) RBC 4.85 10^6/uL 10^6 /uL (4.1-5.3) Hgb 13.5 g/dL g/dL (11.5-15.3) Hct 39.3 % % (37.0-47.0) MCV 81.0 fl fl (81-99) MCH 27.8 pg L pg (28.0-34.0) MCHC 34.4 g/dL g/dL (30.0-36.0) RDW 12.3 % % (12.1-15.1) Plt Count 188 10^3/cmm 10^3 /cmm (130-400) MPV 9.6 fL fL (7.4-10.4) Neut % (Auto) 46.5 % % Lymph % (Auto) 46.5 % % [place] % (Auto) 4.1 % % Eos % (Auto) 2.3 % % Baso % (Auto) 0.4 % % Neut # (Auto) 2.41 10^3/uL 10^3 /uL (1.8-7.7) Lymph # (Auto) 2.4 10^3/uL 10^3/ uL (0.8-4.8) [place] # (Auto) 0.2 10^3/uL 10^3/ uL (0.2-0.9) Eos # (Auto) 0.1 10^3/uL 10^3/ uL (0.0-0.8) Baso # (Auto) 0.0 10^3/uL 10^3/ uL (0.0-0.1) Nucleated RBC % (a uto) 0 % % Nucleated RBCs # 0.0 /100WBC /100W BC Sodium 139 mmol/L mmol/L (136-145) Potassium 3.8 mmol/L mmol/L (3.5-5.1) Chloride 99 mmol/L mmol/L (98-107) Carbon Dioxide 28 mmol/L mmol/L (22-29) Anion Gap 15.8 (5-19) BUN 7 mg/dL mg/dL (6-20) Creatinine 0.8 mg/dL mg/dL (0.5-0.9) GFR Calculation 79.9 mL/min L mL/ min (90-130) Glucose 81 mg/dL mg/dL (65-115) Calculated Osmolal ity 285 mOsm/kg mOsm/ kg (285-295) Calcium 8.7 mg/dL mg/dL (8.5-10.5) Total Bilirubin 0.2 mg/dL mg/dL (0.15-1.2) AST 16 U/L U/L (0-32) ALT 13 U/L U/L (0-33) Alkaline Phosphata se 98 IU/L IU/L (35-105) Troponin T Baselin e 6 ng/L ng/L (0-10) Total Protein 6.7 g/dL g/dL (6.6-8.7) Albumin 4.3 g/dL g/dL (3.5-5.2) Globulin 2.4 g/dL g/dL (1.3-4.6) Discharge Plan Discharge Patient Disposition: Home Clinical Impression: Atypical chest pain Condition: Stable Prescriptions: No Action ibuprofen 800 mg tablet 800 mg PO Q8H PRN (Reason: pain) Qty: 60 RF: 0 fluconazole 150 mg tablet 150 mg PO .every 72 hours Qty: 3 RF: 0 mirtazapine [Remeron] 15 mg tablet 15 mg PO DAILY RF: 0 furosemide [Lasix] 20 mg tablet 20 mg PO DAILY Qty: 90 RF: 3 buprenorphine HCl 8 mg tablet, sublingual 8 mg SUBLINGUAL BID RF: 0 duloxetine 60 mg Capsule, Delayed Rel Sprinkle 60 mg PO BID RF: 0 aripiprazole 10 mg tablet 10 mg PO DAILY RF: 0 diazepam 10 mg tablet 10 mg PO TID RF: 0 Discharge Orders: Discharge ED (Routine); Ordered 10/11/21 Ordered By: Sae Gomez Referrals: Elliott Herrera MD [Primary Care Provider] - Discharge Diet: Usual diet Discharge Activity: Resume usual activity Patient Instructions: Opioid Safety Coding Level of Care Code ED Qual Field Manager for Karlene Jon
[2021-10-11 17:24] LABS: Basophils % 0.4 %; Eosinophils # 0.1 10^3/uL (0.0-0.8); Eosinophils % 2.3 %; Hematocrit 39.3 % (37.0-47.0); Hemoglobin 13.5 g/dL (11.5-15.3); Lymphocytes # 2.4 10^3/uL (0.8-4.8); Lymphocytes % 46.5 %; Mean Corpuscular HGB Conc 34.4 g/dL (30.0-36.0); Mean Corpuscular Hemoglobin 27.8 pg (28.0-34.0); Mean Platelet Volume 9.6 fL (7.4-10.4); Monocytes # 0.2 10^3/uL (0.2-0.9); Monocytes % 4.1 %; Neutrophils # 2.41 10^3/uL (1.8-7.7); Neutrophils % 46.5 %; Nucleated Red Blood Cells % 0 %; Platelet Count 188 10^3/cmm (130-400); Red Blood Count 4.85 10^6/uL (4.1-5.3); Red Cell Distribution Width 12.3 % (12.1-15.1); White Blood Count 5.2 10^3/uL (4.0-10.0)
--- NOTE | 2021-10-11 17:24 | PC.NURSE ---
pt placed on continuous spo2, nibp, and cm monitoring.
[2021-10-11 17:50] LABS: Troponin(5th) Baseline 6 ng/L (0-10)
[2021-10-11 17:58] LABS: Alanine Aminotransferase 13 U/L (0-33); Albumin Level 4.3 g/dL (3.5-5.2); Alkaline Phosphatase 98 IU/L (35-105); Anion Gap 15.8 (5-19); Aspartate Amino Transferase 16 U/L (0-32); Blood Urea Nitrogen 7 mg/dL (6-20); Calcium 8.7 mg/dL (8.5-10.5); Carbon Dioxide 28 mmol/L (22-29); Chloride 99 mmol/L (98-107); Globulin 2.4 g/dL (1.3-4.6); Glomerular Filtration Rate 79.9 mL/min (90-130); Glucose 81 mg/dL (65-115); Osmolality Calculated 285 mOsm/kg (285-295); Potassium 3.8 mmol/L (3.5-5.1); Sodium 139 mmol/L (136-145); Total Bilirubin 0.2 mg/dL (0.15-1.2); Total Protein 6.7 g/dL (6.6-8.7)
[2021-10-11 18:00] VITALS: BP 105/61; PULSE 52; RESP 17; O2SAT 99
== END 2021-10-11 18:19 | disposition home or self-care (01) ==
PROVIDERS: Emergency Provider Family Medicine; PCP Family Medicine
DX: R07.89 Other chest pain (principal); Z87.891 Personal history of nicotine dependence
CPT/HCPCS: 36415; 71045; 80053; 84484; 85025; 93005; 99283

== ENCOUNTER 2021-12-17 10:02 | Emergency (ER) | payer MEDICARE, MEDICAID, SELFPAY ==
[2021-12-17 10:18] VITALS: BP 126/78; PULSE 88; RESP 16; TEMP 36.9; O2SAT 96; BMI 28.1
[2021-12-17 10:53] VITALS: BP 111/75; PULSE 73; RESP 14; O2SAT 97
[2021-12-17 10:54] VITALS: BP 111/75; PULSE 76; RESP 14; O2SAT 99
--- NOTE | 2021-12-17 11:05 | XRR_ITS ---
PROCEDURE INFORMATION: Exam: XR Abdomen Exam date and time: 12/17/2021 11:05 AM Age: 41 years old Clinical indication: Abdominal pain; Patient HX: Lower abd pain x 2 days; Additional info: Abdominal pain, constipation TECHNIQUE: Imaging protocol: XR of the abdomen. Views: 2 Views. Upright and supine views. COMPARISON: US abdomen complete* [id number] 07/30/2021 9:33 AM FINDINGS: Gastrointestinal tract: Normal. No bowel dilation. Intraperitoneal space: Normal. No free air. Bones/joints: Unremarkable for age. XR/XR abdomen min 2V 45812 IMPRESSION: No acute findings.
[2021-12-17 11:06] LABS: Basophils % 0.5 %; Eosinophils # 0.1 10^3/uL (0.0-0.8); Eosinophils % 1.2 %; Hematocrit 41.4 % (37.0-47.0); Hemoglobin 13.7 g/dL (11.5-15.3); Lymphocytes # 1.8 10^3/uL (0.8-4.8); Lymphocytes % 27.3 %; Mean Corpuscular HGB Conc 33.1 g/dL (30.0-36.0); Mean Corpuscular Hemoglobin 27.3 pg (28.0-34.0); Mean Corpuscular Volume 82.5 fl (81-99); Mean Platelet Volume 9.6 fL (7.4-10.4); Monocytes # 0.2 10^3/uL (0.2-0.9); Monocytes % 3.3 %; Neutrophils # 4.48 10^3/uL (1.8-7.7); Neutrophils % 67.5 %; Nucleated Red Blood Cells % 0 %; Platelet Count 225 10^3/cmm (130-400); Red Blood Count 5.02 10^6/uL (4.1-5.3); Red Cell Distribution Width 12.6 % (12.1-15.1); White Blood Count 6.6 10^3/uL (4.0-10.0)
--- NOTE | 2021-12-17 11:06 | W.ED.ABDPA2 ---
Documented by User: TREY Correia 12/17/21 13:31 HPI - Abdominal Pain General: Chief Complaint: Abdominal Pain Stated Complaint: cant urinate with pain Time Seen by Provider: 12/17/21 10:54 Source: patient Mode of arrival: ambulatory Limitations: no limitations History of Present Illness: Patient is a 41-year-old female who presents to ED today with a main complaint of constipation and hard stools. Patient states 2 days ago she had an extremely large hard bowel movement. She states the following day she had a similar stool. She states yesterday she did not have a bowel movement. Today she states she attempted to go as she had the urge to defecate but stated the stool was too large to pass and was painful. She has not noticed any blood in her stool or blood with wiping. There was some triage comment regarding inability to urinate however patient states she is urinating normally. She does not complain of dysuria, frequency, urgency. She complains of some very minor lower abdominal pains. She does not complain of vaginal bleeding, vaginal discharge, vaginal odor. No fevers. She has not had any nausea or vomiting. MD elicited complaint: other (constipation) Pertinent past history: constipation Location: Other (lower abdomen) Severity: mild Associated Symptoms: Reports constipation; Denies chills, diarrhea, dysuria, fever(s), hematochezia, melena, nausea and vomiting Related Data: Date of Last Menstrual Period: 04/26/20 Patient : No Review of Systems Const: Denies: fever(s), chills, body aches, fatigue or malaise Card: Denies: chest pain Resp: Denies: dyspnea GI: Reports: abdominal pain, constipation and pain on defecation; Denies: nausea, vomiting, diarrhea, hematochezia or melena : Denies: flank pain, difficulty voiding, dysuria, urinary frequency, urinary urgency, urinary hesitancy, urinary incontinence or pelvic pain Musc: Denies: neck pain or back pain Skin/Breast: Denies: rash PFS ED PFSH: Medical History (Updated 12/17/21 @ 12:09 by TREY Correia) Arthritis Hypokalemia MRSA (methicillin resistant staph aureus) culture positive No pertinent past medical history neghx: htn,dm,thyroid,dvt/pe Surgical History S/P foot surgery, right (~1998) and right leg, right arm S/P tubal ligation 03/19/2020- bilateral tubal ligation via modified [place], 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 Female Reproductive History: Date of last menstrual period: 04/26/20 Physical Exam Const: COMMON NORMALS: no acute distress, patient oriented x3, no limitations, alert and well nourished GENERAL APPEARANCE: cooperative HENMT: COMMON NORMALS: normocephalic and atraumatic HEAD & SCALP: normocephalic and atraumatic Resp: COMMON NORMALS: normal respiratory effort and clear to auscultation bilaterally AUSCULTATION: clear to auscultation bilaterally Cardio: COMMON NORMALS: regular rate and regular rhythm RATE: regular rate RHYTHM: regular rhythm GI: COMMON NORMALS: Normal to inspection, nondistended, normoactive bowel sounds present, Soft to palpation, No hepatosplenomegaly present and no masses INSPECTION: Yes normal to inspection PALPATION: Yes Soft to palpation, Yes Tenderness to palpation present (GI) (very mild lower abdominal pain-non surgical exam), No Guarding due to palpation present (GI), No Rigid due to palpation and Yes No hepatosplenomegaly present RECTAL EXAM: visual inspection normal, normal sphincter tone, No External hemorrhoid(s) present, No Internal hemorrhoid(s) present, No Rectal prolapse and other (large firm stool ball palpated) : COMMON NORMALS: Yes no CVA tenderness BLADDER/KIDNEY EXAM: Yes no CVA tenderness Back/Pelvis: COMMON NORMALS: no CVA tenderness Extremity: COMMON NORMALS: normal to inspection GENERAL: Yes normal exam except as noted Neuro: COMMON NORMALS: patient oriented x3 SENSORIUM/ORIENTATION: Yes alert Skin: COMMON NORMALS: no rashes or lesions noted GENERAL SKIN EXAM: no rashes or lesions noted Course Vital Signs: Vital signs: Vital Signs Temperature 98.5 F 12/17/21 10:18 Pulse Rate 76 12/17/21 10:54 Respiratory Rate 14 12/17/21 10:54 Blood Pressure 111/75 12/17/21 10:54 Pulse Oximetry 99 12/17/21 10:54 MDM - Abdominal Pain Medical Decision Making Patient's abdominal exam is nonsurgical. Her vital signs are stable. Lab work is non-concerning. XR showing no acute findings. She did have a large firm stool ball palpated on rectal exam. Patient was given a Fleet enema here with good results. She had a very large bowel movement. Patient feels better and is okay going home at this time. Discussed things to prevent constipation including a diet high in fruits/vegetables and fiber. She may use OTC MiraLAX and/or Colace to help prevent constipation. Return to ED precautions verbally given to patient. Lab Data : 12/17/21 11:00 12/17/21 11:00 Labs/Radiology: Radiology Impressions Abdomen X-Ray 12/17/21 11:05 IMPRESSION: No acute findings. Laboratory Results WBC 6.6 10^3/uL (4.0-10.0) 12/17/21 11:00 RBC 5.02 10^6/uL (4.1-5.3) 12/17/21 11:00 Hgb 13.7 g/dL (11.5-15.3) 12/17/21 11:00 Hct 41.4 % (37.0-47.0) 12/17/21 11:00 MCV 82.5 fl (81-99) 12/17/21 11:00 MCH 27.3 pg (28.0-34.0) L 12/17/21 11:00 MCHC 33.1 g/dL (30.0-36.0) 12/17/21 11:00 RDW 12.6 % (12.1-15.1) 12/17/21 11:00 Plt Count 225 10^3/cmm (130-400) 12/17/21 11:00 MPV 9.6 fL (7.4-10.4) 12/17/21 11:00 Neut % (Auto) 67.5 % 12/17/21 11:00 Lymph % (Auto) 27.3 % 12/17/21 11:00 [place] % (Auto) 3.3 % 12/17/21 11:00 Eos % (Auto) 1.2 % 12/17/21 11:00 Baso % (Auto) 0.5 % 12/17/21 11:00 Neut # (Auto) 4.48 10^3/uL (1.8-7.7) 12/17/21 11:00 Lymph # (Auto) 1.8 10^3/uL (0.8-4.8) 12/17/21 11:00 [place] # (Auto) 0.2 10^3/uL (0.2-0.9) 12/17/21 11:00 Eos # (Auto) 0.1 10^3/uL (0.0-0.8) 12/17/21 11:00 Baso # (Auto) 0.0 10^3/uL (0.0-0.1) 12/17/21 11:00 Nucleated RBC % (auto) 0 % 12/17/21 11:00 Nucleated RBCs # 0.0 /100WBC 12/17/21 11:00 Sodium 137 mmol/L (136-145) 12/17/21 11:00 Potassium 4.0 mmol/L (3.5-5.1) 12/17/21 11:00 Chloride 100 mmol/L (98-107) 12/17/21 11:00 Carbon Dioxide 25 mmol/L (22-29) 12/17/21 11:00 Anion Gap 16.0 (5-19) 12/17/21 11:00 BUN 13 mg/dL (6-20) 12/17/21 11:00 Creatinine 0.9 mg/dL (0.5-0.9) 12/17/21 11:00 GFR Calculation 69.7 mL/min (90-130) L 12/17/21 11:00 Glucose 104 mg/dL (65-115) 12/17/21 11:00 Calculated Osmolality 284 mOsm/kg (285-295) L 12/17/21 11:00 Calcium 9.2 mg/dL (8.5-10.5) 12/17/21 11:00 Total Bilirubin 0.4 mg/dL (0.15-1.2) 12/17/21 11:00 AST 18 U/L (0-32) 12/17/21 11:00 ALT 17 U/L (0-33) 12/17/21 11:00 Alkaline Phosphatase 123 IU/L (35-105) H 12/17/21 11:00 Total Protein 7.2 g/dL (6.6-8.7) 12/17/21 11:00 Albumin 4.7 g/dL (3.5-5.2) 12/17/21 11:00 Globulin 2.5 g/dL (1.3-4.6) 12/17/21 11:00 HCG, Qual Negative (Negative) 12/17/21 11:00 Urine Color Yellow (Yellow) 12/17/21 10:45 Urine Appearance Clear (CLEAR) 12/17/21 10:45 Urine pH 5 (5-7) 12/17/21 10:45 Ur Specific [place] 1.010 (1.005-1.030) 12/17/21 10:45 Urine Protein Neg (Negative) 12/17/21 10:45 Urine Glucose (UA) Norm (Normal) 12/17/21 10:45 Urine Ketones Negative (Negative) 12/17/21 10:45 Urine Blood Neg (Negative) 12/17/21 10:45 Urine Nitrate Negative (Negative) 12/17/21 10:45 Urine Bilirubin Neg (Negative) 12/17/21 10:45 Urine Urobilinogen Norm mg/dL (Negative) 12/17/21 10:45 Ur Leukocyte Esterase Trace (Negative) H 12/17/21 10:45 Urine RBC None /hpf (0-2) 12/17/21 10:45 Urine WBC 5-10 /hpf (0-5) H 12/17/21 10:45 Ur Squamous Epith Cells 0-4 /hpf (0-5) H 12/17/21 10:45 Amorphous Sediment Not Reportable 12/17/21 10:45 Urine Bacteria Trace /hpf (NONE) 12/17/21 10:45 Discharge Plan Discharge Patient Disposition: Home Clinical Impression: Constipation Qualifiers: Constipation type: unspecified constipation type Qualified Code(s): K59.00 - Constipation, unspecified Condition: Stable Prescriptions: No Action ibuprofen 800 mg tablet 800 mg PO Q8H PRN (Reason: pain) Qty: 60 0RF fluconazole 150 mg tablet 150 mg PO .every 72 hours Qty: 3 0RF Rx Instructions: 3 doses: 1 pill every 72 hours mirtazapine [Remeron] 15 mg tablet 15 mg PO DAILY 0RF furosemide [Lasix] 20 mg tablet 20 mg PO DAILY Qty: 90 3RF buprenorphine HCl 8 mg tablet, sublingual 8 mg SUBLINGUAL BID 0RF duloxetine 60 mg Capsule, Delayed Rel Sprinkle 60 mg PO BID 0RF aripiprazole 10 mg tablet 10 mg PO DAILY 0RF diazepam 10 mg tablet 10 mg PO TID 0RF Discharge Orders: Discharge ED (Routine); Ordered 12/17/21 Ordered By: Emily Lopez Referrals: Elliott Herrera MD [Primary Care Provider] - Patient Instructions: Constipation (ED) Activity Restrictions/Additional Instructions: Your blood work and abdominal XR here look normal. You were able to have a successful bowel movement following an enema. You may take xzrj-[id number]-[id number] MiraLAX and/or Colace to help relieve occasional constipation. Diets high in fruit/vegetable/fiber can help prevent constipation. You may return to the emergency department for worsening or severe abdominal pains, inability to have a bowel movement, repetitive episodes of vomiting, fevers, or any other concerns you may have. Coding Level of Care Code ED Beef Cattle Grazier for Chg Fwd Exam Comprehensive Documented by User: Sae Gomez DO 12/17/21 14:24 HPI - Abdominal Pain General: Chief Complaint: Abdominal Pain Stated Complaint: cant urinate with pain Time Seen by Provider: 12/17/21 10:54 [facility] ED PFSH: Medical History (Updated 12/17/21 @ 12:09 by TREY Correia) Arthritis Hypokalemia MRSA (methicillin resistant staph aureus) culture positive No pertinent past medical history neghx: htn,dm,thyroid,dvt/pe Surgical History S/P foot surgery, right (~1998) and right leg, right arm S/P tubal ligation 03/19/2020- bilateral tubal ligation via modified [place], [place] 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 Her vital signs are stable. Lab work is non-concerning. XR showing no acute findings. She did have a large firm stool ball palpated on rectal exam. Patient was given a Fleet enema here with good results. She had a very large bowel movement. Patient feels better and is okay going home at this time. Discussed things to prevent constipation including a diet high in fruits/vegetables and fiber. She may use OTC MiraLAX and/or Colace to help prevent constipation. Return to ED precautions verbally given to patient. Chart reviewed and patient discussed with midlevel. Agree with assessment and plan. Medical Records I reviewed the patient's medical records. Lab Data I reviewed the patient's lab results. : 12/17/21 11:00 12/17/21 11:00 Labs/Radiology: Radiology Impressions Abdomen X-Ray 12/17/21 11:05 IMPRESSION: No acute findings. Laboratory Results WBC 6.6 10^3/uL (4.0-10.0) 12/17/21 11:00 RBC 5.02 10^6/uL (4.1-5.3) 12/17/21 11:00 Hgb 13.7 g/dL (11.5-15.3) 12/17/21 11:00 Hct 41.4 % (37.0-47.0) 12/17/21 11:00 MCV 82.5 fl (81-99) 12/17/21 11:00 MCH 27.3 pg (28.0-34.0) L 12/17/21 11:00 MCHC 33.1 g/dL (30.0-36.0) 12/17/21 11:00 RDW 12.6 % (12.1-15.1) 12/17/21 11:00 Plt Count 225 10^3/cmm (130-400) 12/17/21 11:00 MPV 9.6 fL (7.4-10.4) 12/17/21 11:00 Neut % (Auto) 67.5 % 12/17/21 11:00 Lymph % (Auto) 27.3 % 12/17/21 11:00 [place] % (Auto) 3.3 % 12/17/21 11:00 Eos % (Auto) 1.2 % 12/17/21 11:00 Baso % (Auto) 0.5 % 12/17/21 11:00 Neut # (Auto) 4.48 10^3/uL (1.8-7.7) 12/17/21 11:00 Lymph # (Auto) 1.8 10^3/uL (0.8-4.8) 12/17/21 11:00 [place] # (Auto) 0.2 10^3/uL (0.2-0.9) 12/17/21 11:00 Eos # (Auto) 0.1 10^3/uL (0.0-0.8) 12/17/21 11:00 Baso # (Auto) 0.0 10^3/uL (0.0-0.1) 12/17/21 11:00 Nucleated RBC % (auto) 0 % 12/17/21 11:00 Nucleated RBCs # 0.0 /100WBC 12/17/21 11:00 Sodium 137 mmol/L (136-145) 12/17/21 11:00 Potassium 4.0 mmol/L (3.5-5.1) 12/17/21 11:00 Chloride 100 mmol/L (98-107) 12/17/21 11:00 Carbon Dioxide 25 mmol/L (22-29) 12/17/21 11:00 Anion Gap 16.0 (5-19) 12/17/21 11:00 BUN 13 mg/dL (6-20) 12/17/21 11:00 Creatinine 0.9 mg/dL (0.5-0.9) 12/17/21 11:00 GFR Calculation 69.7 mL/min (90-130) L 12/17/21 11:00 Glucose 104 mg/dL (65-115) 12/17/21 11:00 Calculated Osmolality 284 mOsm/kg (285-295) L 12/17/21 11:00 Calcium 9.2 mg/dL (8.5-10.5) 12/17/21 11:00 Total Bilirubin 0.4 mg/dL (0.15-1.2) 12/17/21 11:00 AST 18 U/L (0-32) 12/17/21 11:00 ALT 17 U/L (0-33) 12/17/21 11:00 Alkaline Phosphatase 123 IU/L (35-105) H 12/17/21 11:00 Total Protein 7.2 g/dL (6.6-8.7) 12/17/21 11:00 Albumin 4.7 g/dL (3.5-5.2) 12/17/21 11:00 Globulin 2.5 g/dL (1.3-4.6) 12/17/21 11:00 HCG, Qual Negative (Negative) 12/17/21 11:00 Urine Color Yellow (Yellow) 12/17/21 10:45 Urine Appearance Clear (CLEAR) 12/17/21 10:45 Urine pH 5 (5-7) 12/17/21 10:45 Ur Specific [place] 1.010 (1.005-1.030) 12/17/21 10:45 Urine Protein Neg (Negative) 12/17/21 10:45 Urine Glucose (UA) Norm (Normal) 12/17/21 10:45 Urine Ketones Negative (Negative) 12/17/21 10:45 Urine Blood Neg (Negative) 12/17/21 10:45 Urine Nitrate Negative (Negative) 12/17/21 10:45 Urine Bilirubin Neg (Negative) 12/17/21 10:45 Urine Urobilinogen Norm mg/dL (Negative) 12/17/21 10:45 Ur Leukocyte Esterase Trace (Negative) H 12/17/21 10:45 Urine RBC None /hpf (0-2) 12/17/21 10:45 Urine WBC 5-10 /hpf (0-5) H 12/17/21 10:45 Ur Squamous Epith Cells 0-4 /hpf (0-5) H 12/17/21 10:45 Amorphous Sediment Not Reportable 12/17/21 10:45 Urine Bacteria Trace /hpf (NONE) 12/17/21 10:45 Discharge Plan Discharge Patient Disposition: Home Clinical Impression: Constipation Qualifiers: Constipation type: unspecified constipation type Qualified Code(s): K59.00 - Constipation, unspecified Condition: Stable Prescriptions: No Action ibuprofen 800 mg tablet 800 mg PO Q8H PRN (Reason: pain) Qty: 60 0RF fluconazole 150 mg tablet 150 mg PO .every 72 hours Qty: 3 0RF Rx Instructions: 3 doses: 1 pill every 72 hours mirtazapine [Remeron] 15 mg tablet 15 mg PO DAILY 0RF furosemide [Lasix] 20 mg tablet 20 mg PO DAILY Qty: 90 3RF buprenorphine HCl 8 mg tablet, sublingual 8 mg SUBLINGUAL BID 0RF duloxetine 60 mg Capsule, Delayed Rel Sprinkle 60 mg PO BID 0RF aripiprazole 10 mg tablet 10 mg PO DAILY 0RF diazepam 10 mg tablet 10 mg PO TID 0RF Discharge Orders: Discharge ED (Routine); Ordered 12/17/21 Ordered By: Emily Lopez Referrals: Elliott Herrera MD [Primary Care Provider] - Patient Instructions: Constipation (ED) Activity Restrictions/Additional Instructions: Your blood work and abdominal XR here look normal. You were able to have a successful bowel movement following an enema. You may take adon-udl-hecwcma MiraLAX and/or Colace to help relieve occasional constipation. Diets high in fruit/vegetable/fiber can help prevent constipation. You may return to the emergency department for worsening or severe abdominal pains, inability to have a bowel movement, repetitive episodes of vomiting, fevers, or any other concerns you may have. Coding Level of Care Code ED Beef Cattle Grazier for Chg Fwd Exam Comprehensive
[2021-12-17] MEDS: Fleet Enema 133 mL Enema PR (11:18)
[2021-12-17 11:27] LABS: HCG, Serum Qual Negative (Negative)
[2021-12-17 11:30] LABS: Alanine Aminotransferase 17 U/L (0-33); Albumin Level 4.7 g/dL (3.5-5.2); Alkaline Phosphatase 123 IU/L (35-105); Aspartate Amino Transferase 18 U/L (0-32); Blood Urea Nitrogen 13 mg/dL (6-20); Calcium 9.2 mg/dL (8.5-10.5); Carbon Dioxide 25 mmol/L (22-29); Chloride 100 mmol/L (98-107); Globulin 2.5 g/dL (1.3-4.6); Glomerular Filtration Rate 69.7 mL/min (90-130); Glucose 104 mg/dL (65-115); Osmolality Calculated 284 mOsm/kg (285-295); Sodium 137 mmol/L (136-145); Total Bilirubin 0.4 mg/dL (0.15-1.2); Total Protein 7.2 g/dL (6.6-8.7)
[2021-12-17 11:42] LABS: Add Urine Microscopic? YES; Bilirubin Urine Neg (Negative); Blood Urine Neg (Negative); Glucose Urine UA Norm (Normal); Ketones Urine Negative (Negative); Leukocyte Esterase Urine Trace (Negative); Nitrate Urine Negative (Negative); Protein Urine Neg (Negative); Urine Appearance Clear (CLEAR); Urine Color Yellow (Yellow); Urobilinogen Urine Norm (Negative); pH Urine 5 (5-7)
[2021-12-17 11:43] LABS: Add Urine Culture? No; Bacteria Urine TRACE /hpf; Squamous Epithelial Cell Urine 0-4 /hpf (0-5)
== END 2021-12-17 12:17 | disposition home or self-care (01) ==
PROVIDERS: Emergency Provider Physician Assistant; PCP Family Medicine
DX: K59.00 Constipation, unspecified (principal); Z87.891 Personal history of nicotine dependence
CPT/HCPCS: 74019; 80053; 81001; 84703; 85025; 99283

== ENCOUNTER 2022-03-11 19:19 | Emergency (ER) | payer MEDICARE, MEDICAID, SELFPAY ==
[2022-03-11 19:22] VITALS: BP 134/68; PULSE 61; RESP 18; O2SAT 99; BMI 30.4
--- NOTE | 2022-03-11 19:24 | ECG_ITS ---
[facility] Test Date: 2022-03-11 Pat Name: Brittani Carballo Department: Room: Gender: Female [employer] Director: : 1980 Requested By: Yang Montiel Order Number: [id number] Deniz MD: Juan A Jha M.D. Measurements Intervals [place] Rate: 64 P: 37 WI: 162 QRS: 19 QRSD: 87 T: 11 QT: 377 QTc: 390 Interpretive Statements SINUS RHYTHM Poor R wave progression Compared to ECG 10/11/2021 15:16:11 Myocardial infarct finding no longer present Electronically Signed On 03-12-2022 18:45:00 CDT by Juan A Jha M.D. [email or web address] [email or web address] FREEMANav[email or web address] / [id number]
--- NOTE | 2022-03-11 19:26 | XRR_ITS ---
PROCEDURE INFORMATION: Exam: XR Chest Exam date and time: 03/11/2022 7:36 PM Age: 41 years old Clinical indication: Chest wall pain; Additional info: Chest pain TECHNIQUE: Imaging protocol: XR of the chest. Views: 1 view. COMPARISON: CR XR chest 1V portable [id number] 10/11/2021 5:21 PM FINDINGS: Lungs: Unremarkable. No consolidation. Pleural spaces: Unremarkable. No pleural effusion. No pneumothorax. Heart/Mediastinum: Unremarkable. No cardiomegaly. Bones/joints: Unremarkable. XR/XR chest 1V portable [id number] IMPRESSION: No acute findings.
--- NOTE | 2022-03-11 19:29 | ED_ITS ---
HPI - General Adult General: Chief complaint: Chest Pain Stated complaint: CP Time Seen by Provider: 03/11/22 19:25 History of Present Illness: CC: Chest Pain HPI: This is a [41]yo patient hx of mild tricuspid regurg presenting to the ED complaining of acute sudden onset intermittent sharp chest pain since 10am with radiation to the back or shoulders . No associated with shortness of breath, chest pain or dyspnea on exertion. Pain is not tearing in nature and does not radiate to the back. Pain not associated with vomiting or PO intake. Denies any recent sympathomimetic drug use. Patient denies any cough. Denies palpitations, dysphagia, diaphoresis, radiation of pain to bilateral arms, jaw. Denies F/N/V/D. Patient denies any recent immobility, surgery, unilateral leg swelling, or prior PE. Patient denies any orthopnea. Onset: 10am Duration: ongoing since 10am Location: home Severity: mild/moderate Associated symptoms: Reports chest pain; Deny dyspnea, nausea, rash, palpitations or vomiting Review of Systems Const: Denies: fever(s) or chills Eyes: Denies: change in vision ENMT: Denies: mouth pain Card: Reports: chest pain; Denies: palpitations Resp: Denies: dyspnea or non-productive cough GI: Denies: abdominal pain, nausea, vomiting or diarrhea : Denies: dysuria Musc: Denies: extremity pain Skin/Breast: Denies: rash or new lesions Neuro: Denies: weakness in extremities Psych: Reports: other (Normal mood) Elie/Lymph: Denies: easy bruising PFSH ED PFSH: Medical History Arthritis Hypokalemia MRSA (methicillin resistant staph aureus) culture positive No pertinent past medical history neghx: htn,dm,thyroid,dvt/pe Surgical History S/P foot surgery, right (~1998) and right leg, right arm S/P tubal ligation 03/19/2020- bilateral tubal ligation via modified [place], performed by Dr. 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 Physical Exam Const: COMMON NORMALS: alert HENMT: COMMON NORMALS: atraumatic HEAD & SCALP: atraumatic MOUTH: moist mucous membranes not abnormal Eye: COMMON NORMALS: EOMs intact bilaterally and conjunctivae normal CONJUNCTIVA: Yes conjunctivae normal Neck/C-Spine: COMMON NORMALS: full ROM and supple Resp: COMMON NORMALS: normal respiratory effort and clear to auscultation bilaterally AUSCULTATION: clear to auscultation bilaterally Cardio: COMMON NORMALS: regular rate RATE: regular rate OTHER: 2+ radial pulses b/l GI: COMMON NORMALS: Soft to palpation and non-tender PALPATION: Yes Soft to palpation Extremity: COMMON NORMALS: full ROM Neuro: SENSORIUM/ORIENTATION: Yes alert MOTOR EXAM: No Abnormal motor strength present and Other motor observations present (no focal motor deficits) Psych: COMMON NORMALS: speech normal SPEECH: Yes normal speech MOOD & AFFECT: Yes euthymic mood Course Vital Signs: Vital signs: Vital Signs Pulse Rate 61 03/11/22 19:22 Respiratory Rate 17 03/11/22 20:12 Blood Pressure 134/68 03/11/22 19:22 Pulse Oximetry 99 03/11/22 19:22 MDM - General Adult Medical Decision Making [41]yo patient w/ hx of mild tricuspid reguard presenting to the ED with evaluation of new onset sharp chest pain since 10 am. HDS, pulse 2+ radially bilaterally, no signs of fluid overload, AAOx3, neuro exam intact. Given History and Exam today I have no suspicion for ACS, Pneumothorax, Pneumonia, Pulmonary Embolus, Tamponade, Aortic Dissection or other emergent problems as a cause for this presentation. Workup: ECG x2, CXR, CBC, BMP, Troponin x 2 Interventions: Tylenol and morphine for pain Findings: ECG: No overt evidence of STEMI, hyperacute T waves, localizable STD or T wave inversions. No evidence of Brugada?s sign, delta wave, epsilon wave, significantly prolonged QTc, or malignant arrhythmia. No Q waves. Other Labs unremarkable for emergent problems. CXR: Without PTX, PNA, or widened mediastinum Last Stress Test: negative 09/2021 Last Heart Catheterization: never HEART Score: 0 PERC: Negative [10:05pm] On reassessment, the patient is HDS, no complaints of persistent chest pain in the ED after evaluation. ECG is non-ischemic. She was noted to have a glucose of 59 initially on arrival. Patient received p.o. challenge and now glucose appears to be improving. At the present time, I doubt ACS/PE or other emergent causes of chest pain. Patient has had a recent stress test, reassuring EKG x2, troponin x2 within normal limit, not actively having chest pain, do not suspect that this is ACS. No suspicion for aortic dissection given no widened mediastinum, 2+ upper extremity pulses, or tearing pain. No suspicion for PE given no pleuritic chest pain, recent immobilization or surgery hemoptysis, or other VTE risk factors. EKG is non-ischemic. XR normal. Rx: Tylenol 500mg Q6Hrs x 4 days PRN pain Disposition: Discharge. Strict return precautions discussed with the patient with full understanding. Advised patient to follow up promptly with a primary care provider in 24-48 hrs if the patient has persistent symptoms. Given return instructions for any crushing/tearing chest pain, focal weakness, syncope or any new or concerning issues. Lab Data : 03/11/22 19:40 03/11/22 19:40 Radiology Impressions Chest X-Ray 03/11/22 19:26 IMPRESSION: No acute findings. Laboratory Results WBC 6.9 10^3/uL (4.0-10.0) 03/11/22 19:40 RBC 4.89 10^6/uL (4.1-5.3) 03/11/22 19:40 Hgb 13.3 g/dL (11.5-15.3) 03/11/22 19:40 Hct 40.8 % (37.0-47.0) 03/11/22 19:40 MCV 83.4 fl (81-99) 03/11/22 19:40 MCH 27.2 pg (28.0-34.0) L 03/11/22 19:40 MCHC 32.6 g/dL (30.0-36.0) 03/11/22 19:40 RDW 12.5 % (12.1-15.1) 03/11/22 19:40 Plt Count 207 10^3/cmm (130-400) 03/11/22 19:40 MPV 9.6 fL (7.4-10.4) 03/11/22 19:40 Neut % (Auto) 62.5 % 03/11/22 19:40 Lymph % (Auto) 29.4 % 03/11/22 19:40 [place] % (Auto) 4.9 % 03/11/22 19:40 Eos % (Auto) 2.5 % 03/11/22 19:40 Baso % (Auto) 0.4 % 03/11/22 19:40 Neut # (Auto) 4.29 10^3/uL (1.8-7.7) 03/11/22 19:40 Lymph # (Auto) 2.0 10^3/uL (0.8-4.8) 03/11/22 19:40 [place] # (Auto) 0.3 10^3/uL (0.2-0.9) 03/11/22 19:40 Eos # (Auto) 0.2 10^3/uL (0.0-0.8) 03/11/22 19:40 Baso # (Auto) 0.0 10^3/uL (0.0-0.1) 03/11/22 19:40 Nucleated RBC % (auto) 0 % 03/11/22 19:40 Nucleated RBCs # 0.0 /100WBC 03/11/22 19:40 Sodium 135 mmol/L (136-145) L 03/11/22 19:40 Potassium 4.5 mmol/L (3.5-5.1) 03/11/22 19:40 Chloride 99 mmol/L (98-107) 03/11/22 19:40 Carbon Dioxide 27 mmol/L (22-29) 03/11/22 19:40 Anion Gap 13.5 (5-19) 03/11/22 19:40 BUN 11 mg/dL (6-20) 03/11/22 19:40 Creatinine 0.7 mg/dL (0.5-0.9) 03/11/22 19:40 GFR Calculation 93.2 mL/min (90-130) 03/11/22 19:40 Glucose 59 mg/dL (65-115) L 03/11/22 19:40 POC Glucose 98 mg/dL (70-110) 03/11/22 21:34 Calculated Osmolality 277 mOsm/kg (285-295) L 03/11/22 19:40 Calcium 8.6 mg/dL (8.5-10.5) 03/11/22 19:40 Troponin T Baseline 6 ng/L (0-10) 03/11/22 19:40 Troponin T 120 Minute 6.16 ng/L (0-10) 03/11/22 21:35 Imaging Data Other Imaging: Radiologist's impression: [address] [place] [address] XRay Report Signed Patient: Brittani Carabllo Unit #: [id number] : 1980 Age/Sex: 41 / F ADM Date: 03/11/22 Loc: ER Room/Bed: Attending Dr: Ordering Provider/Ordering MD: Yang Montiel MD Date of Service: 03/11/22 Procedure(s): XR chest 1V portable [id number] Accession Number(s): [id number] Report Number: [id number] PROCEDURE INFORMATION: Exam: XR Chest Exam date and time: 03/11/2022 7:36 PM Age: 41 years old Clinical indication: Chest wall pain; Additional info: Chest pain TECHNIQUE: Imaging protocol: XR of the chest. Views: 1 view. COMPARISON: CR XR chest 1V portable [id number] 10/11/2021 5:21 PM FINDINGS: Lungs: Unremarkable. No consolidation. Pleural spaces: Unremarkable. No pleural effusion. No pneumothorax. Heart/Mediastinum: Unremarkable. No cardiomegaly. Bones/joints: Unremarkable. XR/XR chest 1V portable [id number] IMPRESSION: No acute findings. ? Dictated By: Dany Madrigal MD Signed By: Dany Madrigal MD Signed Date/Time: 03/11/222024 DD/ 35 Discharge Plan Discharge Patient Disposition: Home Clinical Impression: Chest pain Condition: Stable Prescriptions: New acetaminophen 500 mg tablet 500 mg PO Q6H PRN (Reason: pain) 5 Days Qty: 20 0RF No Action ibuprofen 800 mg tablet 800 mg PO Q8H PRN (Reason: pain) Qty: 60 0RF mirtazapine [Remeron] 15 mg tablet 15 mg PO DAILY 0RF furosemide [Lasix] 20 mg tablet 20 mg PO DAILY Qty: 90 3RF buprenorphine HCl 8 mg tablet, sublingual 8 mg SUBLINGUAL BID 0RF duloxetine 60 mg Capsule, Delayed Rel Sprinkle 60 mg PO BID 0RF diazepam 10 mg tablet 10 mg PO TID 0RF potassium chloride 10 mEq Tablet Extended Release 10 meq PO DAILY 0RF aripiprazole 20 mg Tablet 20 mg PO DAILY 0RF biotin 5 mg Tablet 5 mg PO DAILY 0RF Discharge Orders: Discharge ED (Routine); Ordered 03/11/22 Ordered By: Yang Montiel Referrals: Elliott Herrera MD [Primary Care Provider] - Discharge Diet: Advance as tolerated Discharge Activity: Increase activity as tolerated Patient Instructions: Chest Pain (ED) Activity Restrictions/Additional Instructions: Come back to the emergency room if your chest pain worsens, have any fever or c hills, worsening shortness of breath, worsening exertional lightheadedness, or any new or concerning complaints. Coding Level of Care Code ED Blindmaker for Chg Fwd Exam Comprehensive
[2022-03-11 19:54] LABS: Basophils % 0.4 %; Eosinophils # 0.2 10^3/uL (0.0-0.8); Eosinophils % 2.5 %; Hematocrit 40.8 % (37.0-47.0); Hemoglobin 13.3 g/dL (11.5-15.3); Lymphocytes % 29.4 %; Mean Corpuscular HGB Conc 32.6 g/dL (30.0-36.0); Mean Corpuscular Hemoglobin 27.2 pg (28.0-34.0); Mean Corpuscular Volume 83.4 fl (81-99); Mean Platelet Volume 9.6 fL (7.4-10.4); Monocytes # 0.3 10^3/uL (0.2-0.9); Monocytes % 4.9 %; Neutrophils # 4.29 10^3/uL (1.8-7.7); Neutrophils % 62.5 %; Nucleated Red Blood Cells % 0 %; Platelet Count 207 10^3/cmm (130-400); Red Blood Count 4.89 10^6/uL (4.1-5.3); Red Cell Distribution Width 12.5 % (12.1-15.1); White Blood Count 6.9 10^3/uL (4.0-10.0)
[2022-03-11 20:12] VITALS: RESP 17
[2022-03-11] MEDS: morphine 4 mg/mL SDV 1 mL 2 MG IVP (20:12)
[2022-03-11] MEDS: acetaminophen 500 mg Tablet PO (20:12)
[2022-03-11 20:16] LABS: Blood Urea Nitrogen 11 mg/dL (6-20); Calcium 8.6 mg/dL (8.5-10.5); Carbon Dioxide 27 mmol/L (22-29); Chloride 99 mmol/L (98-107); Glomerular Filtration Rate 93.2 mL/min (90-130); Glucose 59 mg/dL (65-115); Osmolality Calculated 277 mOsm/kg (285-295); Sodium 135 mmol/L (136-145)
[2022-03-11 20:17] LABS: Troponin(5th) Baseline 6 ng/L (0-10)
[2022-03-11 20:28] LABS: Anion Gap 13.5 (5-19)
[2022-03-11 20:29] LABS: Potassium 4.5 mmol/L (3.5-5.1)
--- NOTE | 2022-03-11 21:24 | ECG_ITS ---
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 Measurements Intervals Daisy Rate: 54 P: 27 IA: 166 QRS: 14 QRSD: 90 T: 6 QT: 398 QTc: 379 Interpretive Statements SINUS BRADYCARDIA Compared to ECG 10/11/2021 15:16:11 Sinus rhythm no longer present Myocardial infarct finding no longer present Electronically Signed On 03-12-2022 18:54:36 CDT by Juan A Jha M.D. [email or web address] [email or web address]/[id number]
[2022-03-11 21:38] LABS: Glucose Point of Care 98 mg/dL (70-110)
[2022-03-11 22:01] LABS: Troponin 5 2HR 6.16 ng/L (0-10)
[2022-03-11 22:20] LABS: Glucose Point of Care 94 mg/dL (70-110)
[2022-03-11 22:21] LABS: Troponin 5 2HR Delta 0.16 ABS# (0-10)
[2022-03-11 22:24] VITALS: BP 120/60; PULSE 63; RESP 18; TEMP 36.9; O2SAT 99
== END 2022-03-11 22:26 | disposition home or self-care (01) ==
PROVIDERS: Emergency Provider Emergency Medicine; PCP Family Medicine
DX: R07.9 Chest pain, unspecified (principal)
CPT/HCPCS: 36416; 71045; 80048; 82962; 84484; 85025; 93005; 96374; 99285; J2270

== ENCOUNTER → 2022-05-21 18:44 | Outpatient (BNVA) | payer MEDICARE, MEDICAID, SELFPAY | PROVIDERS: PCP Family Medicine; Visit Provider Emergency Medicine | DX: M79.671 Pain in right foot (principal); R29.898 Other symptoms and signs involving the musculoskeletal system | CPT/HCPCS: 73630 ==

== ENCOUNTER 2022-05-24 14:04 | Outpatient (CLI) | payer MEDICARE, MEDICAID, SELFPAY ==
--- NOTE | 2022-05-24 14:22 | XR_ITS ---
WS: [id number] Right leg including the tibia and fibula, AP and lateral views, 05/24/2022 Clinical Data: PAIN IN R LOWER LEG Comparison: None. Findings: There is an intramedullary jose armando extending the length of the tibia reducing an old fracture of the dis veronica third of the right tibia. There is a healed fracture of the distal portion of the right fibula. XR/XR tibia fibula RT 2V [id number] Impression: 1. Intramedullary jose armando reducing an old fracture of distal right tibia. 2. Healed fracture of distal right fibula.
== END 2022-05-24 14:05 | disposition home or self-care (01) ==
PROVIDERS: PCP Family Medicine; Visit Provider Family Medicine
DX: M79.661 Pain in right lower leg (principal)
CPT/HCPCS: 73590

== ENCOUNTER 2023-02-06 19:04 | Emergency (ER) | payer MEDICARE, MEDICAID, SELFPAY ==
[2023-02-06 19:16] VITALS: BP 129/84; PULSE 78; RESP 16; TEMP 36.6; O2SAT 99
--- NOTE | 2023-02-06 19:23 | XRR_ITS ---
PROCEDURE INFORMATION: Exam: XR Chest Exam date and time: 02/06/2023 7:27 PM Age: 42 years old Clinical indication: Cough TECHNIQUE: Imaging protocol: Radiologic exam of the chest. Views: 2 views. COMPARISON: CR XR chest 1V portable [id number] 03/11/2022 7:36 PM FINDINGS: Lungs: Unremarkable. No consolidation. Pleural spaces: Unremarkable. No pleural effusion. No pneumothorax. Heart/Mediastinum: Unremarkable. No cardiomegaly. Bones/joints: Metal plate and screws in the left humerus. XR/XR chest 2V* [id number] IMPRESSION: No acute findings.
--- NOTE | 2023-02-06 20:22 | W.ED.URI ---
HPI - URI/Sore Throat General: Chief Complaint: Upper Respiratory Infection Stated Complaint: cough, congeston, dizzy Time Seen by Provider: 02/06/23 19:48 History of Present Illness: Patient reports starting with a cold approximately a month ago. She reports she is just not getting better and now she is starting to cough up some nasty stuff. She denies any fever, chills, nausea, vomiting. She has been taking Zyrtec which helps a little bit but not much. Associated symptoms: Reports nasal congestion and sinus pain; Deny abdominal pain, chills, chest pain, fever(s), headache(s), nausea or vomiting Review of Systems Const: Denies: fever(s), chills or body aches Eyes: Denies: change in vision or blurry vision ENMT: Reports: throat pain, nasal discharge, nasal congestion, post nasal drip and sinus pain Card: Denies: chest pain, palpitations, irregular heart rhythm, lightheadedness or syncope Resp: Reports: productive cough; Denies: dyspnea or non-productive cough GI: Denies: abdominal pain, nausea or vomiting : Denies: flank pain, difficulty voiding, dysuria, urinary frequency, urinary urgency or urinary hesitancy Musc: Denies: neck pain or back pain Neuro: Denies: headache(s), numbness in extremities or weakness in extremities PFS ED PFSH: Medical History (Updated 02/06/23 @ 20:29 by MARY Nicole-C) Arthritis Hypokalemia MRSA (methicillin resistant staph aureus) culture positive No pertinent past medical history neghx: htn,dm,thyroid,dvt/pe Surgical History S/P foot surgery, right (~1998) and right leg, right arm S/P tubal ligation 03/19/2020- bilateral tubal ligation via modified [place], performed by Dr. 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 Physical Exam Const: COMMON NORMALS: no acute distress, patient oriented x3 and alert HENMT: FACE & SINUS: sinus tenderness frontal TYMPANIC MEMBRANE: TM abnormal TM laterality: bilateral bulging; not erythematous and with no loss of landmarks THROAT: uvula midline and postnasal drainage Neck/C-Spine: COMMON NORMALS: no JVD Resp: COMMON NORMALS: normal respiratory effort, No use of accessory muscles and clear to auscultation bilaterally AUSCULTATION: clear to auscultation bilaterally Cardio: COMMON NORMALS: no JVD, regular rate, regular rhythm, S1 normal heart sound present and S2 normal heart sound present RATE: regular rate RHYTHM: regular rhythm HEART SOUNDS: S1 normal heart sound present and S2 normal heart sound present Neuro: COMMON NORMALS: patient oriented x3 SENSORIUM/ORIENTATION: Yes alert Course Vital Signs: Vital signs: Vital Signs Temperature 97.8 F 02/06/23 19:16 Pulse Rate 78 02/06/23 19:16 Respiratory Rate 16 02/06/23 19:16 Blood Pressure 129/84 02/06/23 19:16 Pulse Oximetry 99 02/06/23 19:16 Oxygen Delivery Me thod Room Air 02/06/23 19:16 MDM - URI/Sore Throat Medical Decision Making Consider upper respiratory infection, allergic rhinitis, acute sinusitis, pneumonia X-ray chest 2 view wet read no acute cardiopulmonary changes appreciated Radiologist read no acute findings Given patient's tenderness to palpation of frontal sinuses with duration of symptoms we will go ahead and treat patient to cover for acute sinusitis. I recommend continuing with Zyrtec add Flonase [id number] encourage sinus rinses. Follow-up with primary care provider as needed. Return to the ER for new or worsening symptoms Lab Data Radiology Impressions Chest X-Ray 02/06/23 19:23 IMPRESSION: No acute findings. Discharge Plan Discharge Patient Disposition: Home Clinical Impression: Acute frontal sinusitis Condition: Stable Prescriptions: New amoxicillin 875 mg tablet 875 mg PO BID 10 Days Qty: 20 0RF No Action ibuprofen 800 mg tablet 800 mg PO Q8H PRN (Reason: pain) Qty: 60 0RF mirtazapine [Remeron] 15 mg tablet 15 mg PO DAILY tramadol 50 mg tablet 50 mg PO Q4H PRN (Reason: pain) Qty: 30 0RF furosemide [Lasix] 20 mg tablet 20 mg PO DAILY Qty: 90 3RF buprenorphine HCl 8 mg tablet, sublingual 8 mg SUBLINGUAL BID duloxetine 60 mg Capsule, Delayed Rel Sprinkle 60 mg PO BID diazepam 10 mg tablet 10 mg PO TID potassium chloride 10 mEq Tablet Extended Release 10 meq PO DAILY aripiprazole 20 mg Tablet 20 mg PO DAILY biotin 5 mg Tablet 5 mg PO DAILY Discharge Orders: Discharge ED (Routine); Ordered 02/06/23 Ordered By: Cecilia Madison Referrals: Elliott Herrera MD [Primary Care Provider] - Discharge Diet: Usual diet Discharge Activity: Resume usual activity Patient Instructions: Sinusitis - Acute Activity Restrictions/Additional Instructions: Take antibiotic as directed. You received your first dose in ER tonight so you will start your prescription tomorrow and take all the way until they are gone. Continue taking Zyrtec add Flonase [id number]. I recommend sinus rinses/[place] pot. Follow-up with primary care provider as needed. Return to the ER for new or worsening symptoms Coding Level of Care Code ED Clay Structure Builder And Servicer for Karlene Jon
[2023-02-06] MEDS: amoxicillin 500 mg Capsule 1000 MG PO (20:34)
== END 2023-02-06 20:37 | disposition home or self-care (01) ==
PROVIDERS: Emergency Provider Nurse Practitioner Family; PCP Family Medicine
DX: J01.10 Acute frontal sinusitis, unspecified (principal); F17.290 Nicotine dependence, other tobacco product, uncomplicated
CPT/HCPCS: 71046; 99283

== ENCOUNTER 2023-04-23 11:14 | Emergency (ER) | payer MEDICARE, MEDICAID, SELFPAY ==
[2023-04-23 11:16] VITALS: BP 122/60; PULSE 72; RESP 16; TEMP 36.7; O2SAT 97; BMI 30.4
[2023-04-23 12:24] LABS: Add Urine Microscopic? YES; Bilirubin Urine Neg (Negative); Blood Urine 3+ (Negative); Glucose Urine UA Norm (Normal); Ketones Urine Negative (Negative); Leukocyte Esterase Urine Trace (Negative); Nitrate Urine Negative (Negative); Protein Urine Neg (Negative); RBC Urine >100 /hpf (0-2); Specific Gravity, Urine 1.015 (1.005-1.030); Urine Appearance Hazy (CLEAR); Urine Color Yellow (Yellow); Urobilinogen Urine Norm (Negative); pH Urine 5 (5-7)
[2023-04-23 12:25] LABS: Add Urine Culture? Yes; Mucus Urine 1+ /hpf; Squamous Epithelial Cell Urine 0-4 /hpf (0-5)
[2023-04-23 12:39] VITALS: BP 116/68; PULSE 63; RESP 16; O2SAT 98
--- NOTE | 2023-04-23 12:51 | ED_ITS ---
HPI - Female Genitourinary General: Chief complaint: Urogenital-Female Stated complaint: severe period pain, five days Time Seen by Provider: 04/23/23 11:52 Source: patient Mode of arrival: ambulatory Limitations: no limitations History of Present Illness: Patient is a 42-year-old female presents to ED today for complaints of a prolonged menstrual cycle as well as heavier than normal bleeding and cramping. She states her menstrual cycles normally are 3 days and she is now on day 5 of her menstrual cycle. She states menstrual cycle started on schedule. Patient is not having any vaginal discharge. She is /monogamous with her and no concern for sexually transmitted infections. She denies lightheadedness, dizziness, passing out episodes. Reports Pap smear is up-to-date. MD elicited complaint: other (heavy/prolonged menstrual cycle) Onset (ago): day(s) Severity: moderate Quality of pain: cramping Vaginal discharge: none Vaginal bleeding: moderate Exacerbating factors: none Relieving factors: none Associated symptoms: Reports no associated symptoms; Deny abdominal pain, nausea or vaginal discharge Treatment prior to arrival: none Sexual activity: Yes Patient : No Date of Last Menstrual Period: 04/19/23 Review of Systems Const: Denies: fever(s), chills, body aches, fatigue or malaise Card: Denies: chest pain Resp: Denies: dyspnea GI: Denies: abdominal pain, nausea, vomiting, diarrhea or constipation : Reports: vaginal bleeding and pelvic pain; Denies: flank pain, difficulty voiding, dysuria, urinary hesitancy, vaginal odor, vaginal discharge or metrorrhagia Musc: Denies: back pain Skin/Breast: Denies: rash Neuro: Denies: dizziness PFSH ED PFSH: Medical History Arthritis Hypokalemia MRSA (methicillin resistant staph aureus) culture positive No pertinent past medical history neghx: htn,dm,thyroid,dvt/pe Surgical History S/P foot surgery, right (~1998) and right leg, right arm S/P tubal ligation 03/19/2020- bilateral tubal ligation via modified [place], performed by Dr. Light at 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 Female Reproductive History: Date of last menstrual period: 04/19/23 Physical Exam Const: COMMON NORMALS: no acute distress, patient oriented x3, no limitations, alert and well nourished GENERAL APPEARANCE: cooperative NUTRITIONAL APPEARANCE: overweight Resp: COMMON NORMALS: normal respiratory effort and clear to auscultation bilaterally AUSCULTATION: clear to auscultation bilaterally Cardio: COMMON NORMALS: regular rate and regular rhythm RATE: regular rate RHYTHM: regular rhythm GI: COMMON NORMALS: Normal to inspection, nondistended, normoactive bowel sounds present, Soft to palpation, non-tender, No hepatosplenomegaly present and no masses PALPATION: Yes Soft to palpation and Yes No hepatosplenomegaly present : COMMON NORMALS: Yes no CVA tenderness BLADDER/KIDNEY EXAM: Yes no CVA tenderness OTHER: defers pelvis exam Back/Pelvis: COMMON NORMALS: no CVA tenderness Extremity: GENERAL: Yes normal exam except as noted Neuro: MARINE COMA SCALE: document GCS findings [place] coma scale eye opening: Spontaneous [place] coma scale verbal response: Orientated [place] coma scale motor response: [place] commands [place] coma scale total score: 15 COMMON NORMALS: patient oriented x3 and gait normal SENSORIUM/ORIENTATION: Yes alert Course Vital Signs: Vital signs: Vital Signs Temperature 98.1 F 04/23/23 11:16 Pulse Rate 63 04/23/23 12:39 Respiratory Rate 16 04/23/23 12:39 Blood Pressure 111/64 04/23/23 13:53 Pulse Oximetry 98 04/23/23 12:39 Oxygen Delivery Me thod Room Air 04/23/23 12:39 MDM - Female Medical Decision Making Patient's vital signs are completely stable. Blood work is nonactionable. She does have chronically elevated LFTs. She states she is aware of this and is currently being followed up with a GI specialist at [place]. UA showing blood most likely from her menstruation. It does not appear acutely infected. At this time patient started her menstrual cycle on schedule. She states she was just concerned as she is on day 5 where normally her menstrual cycles are 3 days and she felt like bleeding was slightly heavier than normal and she had more pelvic cramping. Pelvic exam deferred today. She states her Pap smear is up-to-date. She states she will follow-up with Dr. Light if symptoms do not improve over the next few days. Return to ED precautions given. Lab Data 04/23/23 12:54 04/23/23 12:54 Laboratory Results WBC 6.1 10^3/uL (4.0-10.0) 04/23/23 12:54 RBC 4.80 10^6/uL (4.1-5.3) 04/23/23 12:54 Hgb 13.7 g/dL (11.5-15.3) 04/23/23 12:54 Hct 43.7 % (37.0-47.0) 04/23/23 12:54 MCV 91.0 fl (81-99) 04/23/23 12:54 MCH 28.5 pg (28.0-34.0) 04/23/23 12:54 MCHC 31.4 g/dL (30.0-36.0) 04/23/23 12:54 RDW 12.6 % (12.1-15.1) 04/23/23 12:54 Plt Count 211 10^3/cmm (130-400) 04/23/23 12:54 MPV 9.9 fL (7.4-10.4) 04/23/23 12:54 Neut % (Auto) 70.5 % 04/23/23 12:54 Lymph % (Auto) 23.1 % 04/23/23 12:54 [place] % (Auto) 3.1 % 04/23/23 12:54 Eos % (Auto) 2.6 % 04/23/23 12:54 Baso % (Auto) 0.5 % 04/23/23 12:54 Neut # (Auto) 4.26 10^3/uL (1.8-7.7) 04/23/23 12:54 Lymph # (Auto) 1.4 10^3/uL (0.8-4.8) 04/23/23 12:54 [place] # (Auto) 0.2 10^3/uL (0.2-0.9) 04/23/23 12:54 Eos # (Auto) 0.2 10^3/uL (0.0-0.8) 04/23/23 12:54 Baso # (Auto) 0.0 10^3/uL (0.0-0.1) 04/23/23 12:54 Nucleated RBC % (auto) 0 % 04/23/23 12:54 Nucleated RBCs # 0.0 /100WBC 04/23/23 12:54 Sodium 136 mmol/L (136-145) 04/23/23 12:54 Potassium 3.6 mmol/L (3.5-5.1) 04/23/23 12:54 Chloride 102 mmol/L (98-107) 04/23/23 12:54 Carbon Dioxide 25 mmol/L (22-29) 04/23/23 12:54 Anion Gap 12.6 (5-19) 04/23/23 12:54 BUN 8 mg/dL (6-20) 04/23/23 12:54 Creatinine 0.8 mg/dL (0.5-0.9) 04/23/23 12:54 GFR Calculation 79.4 mL/min (90-130) L 04/23/23 12:54 Glucose 84 mg/dL (65-115) 04/23/23 12:54 Calculated Osmolality 280 mOsm/kg (285-295) L 04/23/23 12:54 Calcium 8.5 mg/dL (8.5-10.5) 04/23/23 12:54 Total Bilirubin 0.3 mg/dL (0.15-1.2) 04/23/23 12:54 AST 63 U/L (0-32) H 04/23/23 12:54 ALT 58 U/L (0-33) H 04/23/23 12:54 Alkaline Phosphatase 120 U/L (35-105) H 04/23/23 12:54 Total Protein 6.5 g/dL (6.6-8.7) L 04/23/23 12:54 Albumin 3.7 g/dL (3.5-5.2) 04/23/23 12:54 Globulin 2.8 g/dL (1.3-4.6) 04/23/23 12:54 HCG, Qual Negative (Negative) 04/23/23 12:54 Urine Color Yellow (Yellow) 04/23/23 12:01 Urine Appearance Hazy (CLEAR) A 04/23/23 12:01 Urine pH 5 (5-7) 04/23/23 12:01 Ur Specific [place] 1.015 (1.005-1.030) 04/23/23 12:01 Urine Protein Neg (Negative) 04/23/23 12:01 Urine Glucose (UA) Norm (Normal) 04/23/23 12:01 Urine Ketones Negative (Negative) 04/23/23 12:01 Urine Blood 3+ (Negative) H 04/23/23 12:01 Urine Nitrate Negative (Negative) 04/23/23 12:01 Urine Bilirubin Neg (Negative) 04/23/23 12:01 Urine Urobilinogen Norm mg/dL (Negative) 04/23/23 12:01 Ur Leukocyte Esterase Trace (Negative) H 04/23/23 12:01 Urine RBC >100 /hpf (0-2) H 04/23/23 12:01 Urine WBC 5-10 /hpf (0-5) H 04/23/23 12:01 Ur Squamous Epith Cells 0-4 /hpf (0-5) H 04/23/23 12:01 Amorphous Sediment Not Reportable 04/23/23 12:01 Urine Bacteria None /hpf (NONE) 04/23/23 12:01 Urine Mucus 1+ /hpf 04/23/23 12:01 Discharge Plan Discharge Patient Disposition: Home Clinical Impression: Menstrual pain, Prolonged menstruation Condition: Stable Prescriptions: No Action ibuprofen 800 mg tablet 800 mg PO Q8H PRN (Reason: pain) Qty: 60 0RF mirtazapine [Remeron] 15 mg tablet 15 mg PO DAILY tramadol 50 mg tablet 50 mg PO Q4H PRN (Reason: pain) Qty: 30 0RF furosemide [Lasix] 20 mg tablet 20 mg PO DAILY Qty: 90 3RF buprenorphine HCl 8 mg tablet, sublingual 8 mg SUBLINGUAL BID duloxetine 60 mg Capsule, Delayed Rel Sprinkle 60 mg PO BID diazepam 10 mg tablet 10 mg PO TID potassium chloride 10 mEq Tablet Extended Release 10 meq PO DAILY aripiprazole 20 mg Tablet 20 mg PO DAILY biotin 5 mg Tablet 5 mg PO DAILY Discharge Orders: Discharge ED (Routine); Ordered 04/23/23 Ordered By: Emily Lopez Referrals: Elliott Herrera MD [Primary Care Provider] - Activity Restrictions/Additional Instructions: As we discussed please follow-up with your CORRESPONDENCE CLERK Dr. Light if pain/bleeding persists. You may return to the emergency department for severe vaginal bleeding (soaking more than 1 pad an hour) or if accompanied by racing heart rate, lightheadedness, dizziness, passing out episodes. May also return for severe pelvic pain/cramping, fevers, or any other concerns you may have. I hope you begin to feel better soon. Coding Level of Care Code ED Product Technology Scientist for Karlene Jon
[2023-04-23 13:03] LABS: Basophils % 0.5 %; Eosinophils # 0.2 10^3/uL (0.0-0.8); Eosinophils % 2.6 %; Hematocrit 43.7 % (37.0-47.0); Hemoglobin 13.7 g/dL (11.5-15.3); Lymphocytes # 1.4 10^3/uL (0.8-4.8); Lymphocytes % 23.1 %; Mean Corpuscular HGB Conc 31.4 g/dL (30.0-36.0); Mean Corpuscular Hemoglobin 28.5 pg (28.0-34.0); Mean Platelet Volume 9.9 fL (7.4-10.4); Monocytes # 0.2 10^3/uL (0.2-0.9); Monocytes % 3.1 %; Neutrophils # 4.26 10^3/uL (1.8-7.7); Neutrophils % 70.5 %; Nucleated Red Blood Cells % 0 %; Platelet Count 211 10^3/cmm (130-400); Red Cell Distribution Width 12.6 % (12.1-15.1); White Blood Count 6.1 10^3/uL (4.0-10.0)
[2023-04-23 13:24] LABS: Slide Review Slide Review Perform
[2023-04-23 13:25] LABS: HCG, Serum Qual Negative (Negative)
[2023-04-23 13:27] LABS: Alanine Aminotransferase 58 U/L (0-33); Albumin Level 3.7 g/dL (3.5-5.2); Alkaline Phosphatase 120 U/L (35-105); Anion Gap 12.6 (5-19); Aspartate Amino Transferase 63 U/L (0-32); Blood Urea Nitrogen 8 mg/dL (6-20); Calcium 8.5 mg/dL (8.5-10.5); Carbon Dioxide 25 mmol/L (22-29); Chloride 102 mmol/L (98-107); Globulin 2.8 g/dL (1.3-4.6); Glomerular Filtration Rate 79.4 mL/min (90-130); Glucose 84 mg/dL (65-115); Osmolality Calculated 280 mOsm/kg (285-295); Potassium 3.6 mmol/L (3.5-5.1); Sodium 136 mmol/L (136-145); Total Bilirubin 0.3 mg/dL (0.15-1.2); Total Protein 6.5 g/dL (6.6-8.7)
[2023-04-23 13:53] VITALS: BP 111/64
== END 2023-04-23 13:55 | disposition home or self-care (01) ==
PROVIDERS: Emergency Provider Physician Assistant; PCP Family Medicine
DX: N94.6 Dysmenorrhea, unspecified (principal); F17.290 Nicotine dependence, other tobacco product, uncomplicated
CPT/HCPCS: 80053; 81001; 84703; 85025; 87086; 99283

== ENCOUNTER → 2023-06-16 12:17 | Outpatient (BNVA) | payer MEDICARE, MEDICAID, SELFPAY | PROVIDERS: PCP Family Medicine; Visit Provider Obstetrics & Gynecology | DX: N94.6 Dysmenorrhea, unspecified (principal) | CPT/HCPCS: 76830 ==

== ENCOUNTER 2023-09-17 15:44 | Emergency (ER) | payer MEDICARE, MEDICAID, SELFPAY ==
[2023-09-17 16:05] VITALS: BP 134/72; PULSE 64; RESP 17; TEMP 36.6; O2SAT 100; BMI 32.6
--- NOTE | 2023-09-17 16:11 | ECG_ITS ---
[facility] Test Date: 2023-09-17 Pat Name: Brittani Carballo Department: Room: Gender: Female Dry Roller: : 1980 Requested By: Bharat Martin Order Number: [id number] Deniz MD: Yao Johnson M.D. Measurements Intervals [place] Rate: 64 P: 25 MD: 148 QRS: 3 QRSD: 121 T: 3 QT: 394 QTc: 409 Interpretive Statements SINUS RHYTHM Poor R wave progression across anterior chest leads Nonspecific T wave changes Compared to ECG 03/11/2022 21:39:55 Myocardial infarct finding now present Sinus bradycardia no longer present Electronically Signed On 09-18-2023 16:40:53 PHYSIOLOGIST by Yao Johnson M.D. [id number]
--- NOTE | 2023-09-17 16:12 | PC.NURSE ---
pt triage at end of triage pt states she is now having some upper right chest pain.
[2023-09-17 17:12] LABS: Basophils % 0.5 %; Eosinophils # 0.2 10^3/uL (0.0-0.8); Eosinophils % 2.5 %; Hematocrit 40.3 % (36-47); Lymphocytes # 2.8 10^3/uL (0.8-4.8); Lymphocytes % 36.5 %; Mean Corpuscular Hemoglobin 27.7 pg (27-33); Mean Corpuscular Volume 83.8 fl (85-98); Mean Platelet Volume 9.6 fL (7.4-10.4); Monocytes # 0.3 10^3/uL (0.2-0.9); Monocytes % 3.4 %; Neutrophils # 4.33 10^3/uL (1.8-7.7); Nucleated Red Blood Cells % 0 %; Platelet Count 230 10^3/cmm (157-399); Red Blood Count 4.81 10^6/uL (3.85-5.65); Red Cell Distribution Width 12.4 % (12.1-15.1); White Blood Count 7.61 10^3/uL (3.29-11.43)
[2023-09-17 17:32] LABS: Alanine Aminotransferase 16 U/L (0-33); Albumin Level 4.4 g/dL (3.5-5.2); Alkaline Phosphatase 115 U/L (35-105); Anion Gap 13.7 (5-19); Aspartate Amino Transferase 20 U/L (0-32); Blood Urea Nitrogen 11 mg/dL (6-20); Calcium 9.2 mg/dL (8.5-10.5); Carbon Dioxide 28 mmol/L (22-29); Chloride 102 mmol/L (98-107); Creatinine Clr Calc Pharmacy 113.0018; Globulin 2.8 g/dL (1.3-4.6); Glucose 89 mg/dL (65-115); Osmolality Calculated 289 mOsm/kg (285-295); Potassium 3.7 mmol/L (3.5-5.1); Sodium 140 mmol/L (136-145); Total Bilirubin 0.2 mg/dL (0.15-1.2); Total Protein 7.2 g/dL (6.6-8.7)
--- NOTE | 2023-09-17 18:07 | W.ED.DIZZY ---
HPI - Dizziness General: Chief Complaint: Dizziness Stated Complaint: Light headed Time Seen by Provider: 09/17/23 18:06 History of Present Illness: HPI Narrative: Patient comes in today with complaints of headache starting last night and lightheadedness today. After feeling lightheaded patient felt like she had some chest discomfort and some nausea. Patient had no episodes of vomiting. Patient has no fever. Patient appears nontoxic. Patient continues to report headache. Associated symptoms: Reports chest pain, headache(s) and nausea; Denies vomiting Review of Systems General: Reports: 10 or more systems reviewed and unremarkable except in HPI and below Const: Denies: fever(s) Card: Reports: chest pain Resp: Denies: dyspnea GI: Reports: nausea; Denies: vomiting, diarrhea or constipation : Denies: difficulty voiding Musc: Denies: neck pain or back pain Skin/Breast: Denies: rash Neuro: Reports: headache(s) [facility] ED PFSH: Medical History (Updated 09/17/23 @ 19:19 by MARY Sainz) No pertinent past medical history neghx: htn,dm,thyroid,dvt/pe Arthritis MRSA (methicillin resistant staph aureus) culture positive Hypokalemia Surgical History S/P foot surgery, right (~1998) and right leg, right arm S/P tubal ligation 03/19/2020- bilateral tubal ligation via modified [place], performed by Dr. Light at [facility] Family History Grandmother Breast cancer maternal, DX in her 60's Diabetes maternal Father Colon cancer Sister Clotting disorder Denies family history of Hyperlipidemia Anesthesia complication Bleeding disorder Hypertension Stroke Social History Smoking and tobacco/nicotine status: current every day tobacco/nicotine user (VAPE) Quit status (tobacco/nicotine): has quit using Alcohol intake: never Substance/Drug Use: never Physical Exam Const: COMMON NORMALS: alert HENMT: COMMON NORMALS: normocephalic HEAD & SCALP: normocephalic Neck/C-Spine: COMMON NORMALS: full ROM Resp: COMMON NORMALS: normal respiratory effort and clear to auscultation bilaterally AUSCULTATION: clear to auscultation bilaterally Cardio: COMMON NORMALS: regular rate and regular rhythm RATE: regular rate RHYTHM: regular rhythm Back/Pelvis: COMMON NORMALS: thoracic and lumbar spine normal to inspection Extremity: COMMON NORMALS: full ROM Neuro: SENSORIUM/ORIENTATION: Yes alert Skin: COMMON NORMALS: turgor normal GENERAL SKIN EXAM: turgor normal Course Vital Signs: Vital signs: Vital Signs Temperature 97.8 F 09/17/23 16:05 Pulse Rate 64 09/17/23 16:05 Respiratory Rate 17 09/17/23 16:05 Blood Pressure 134/72 09/17/23 16:05 Pulse Oximetry 100 09/17/23 16:05 Oxygen Delivery Me thod Room Air 09/17/23 16:05 MDM - Dizziness Medical Decision Making 43-year-old female comes in today with complaints of headache and lightheadedness. Patient appears nontoxic. No focal neural deficits. Vital signs are normal. Patient moves all extremities well. Differential diagnosis includes migraine, classic headache, anxiety, malingering. Laboratory values and EKG were normal or without significant change. Patient was given a dose of Reglan and ketorolac for her headache. Patient wanted to leave after medication and was discharged to home. Patient understands to follow-up with primary care or return to the ER for worsening symptoms. Lab Data 09/17/23 16:49 09/17/23 16:49 Laboratory Results WBC 7.61 10^3/uL (3.29-11.43) 09/17/23 16:49 RBC 4.81 10^6/uL (3.85-5.65) 09/17/23 16:49 Hgb 13.30 g/dL (11.27-16.99) 09/17/23 16:49 Hct 40.3 % (36-47) 09/17/23 16:49 MCV 83.8 fl (85-98) L 09/17/23 16:49 MCH 27.7 pg (27-33) 09/17/23 16:49 MCHC 33.0 g/dL (30-55) 09/17/23 16:49 RDW 12.4 % (12.1-15.1) 09/17/23 16:49 Plt Count 230 10^3/cmm (157-399) 09/17/23 16:49 MPV 9.6 fL (7.4-10.4) 09/17/23 16:49 Neut % (Auto) 57.0 % 09/17/23 16:49 Lymph % (Auto) 36.5 % 09/17/23 16:49 [place] % (Auto) 3.4 % 09/17/23 16:49 Eos % (Auto) 2.5 % 09/17/23 16:49 Baso % (Auto) 0.5 % 09/17/23 16:49 Neut # (Auto) 4.33 10^3/uL (1.8-7.7) 09/17/23 16:49 Lymph # (Auto) 2.8 10^3/uL (0.8-4.8) 09/17/23 16:49 [place] # (Auto) 0.3 10^3/uL (0.2-0.9) 09/17/23 16:49 Eos # (Auto) 0.2 10^3/uL (0.0-0.8) 09/17/23 16:49 Baso # (Auto) 0.0 10^3/uL (0.0-0.1) 09/17/23 16:49 Nucleated RBC % (auto) 0 % 09/17/23 16:49 Nucleated RBCs # 0.0 /100WBC 09/17/23 16:49 Sodium 140 mmol/L (136-145) 09/17/23 16:49 Potassium 3.7 mmol/L (3.5-5.1) 09/17/23 16:49 Chloride 102 mmol/L (98-107) 09/17/23 16:49 Carbon Dioxide 28 mmol/L (22-29) 09/17/23 16:49 Anion Gap 13.7 (5-19) 09/17/23 16:49 BUN 11 mg/dL (6-20) 09/17/23 16:49 Creatinine 0.8 mg/dL (0.5-0.9) 09/17/23 16:49 GFR Calculation 79.0 mL/min (90-130) L 09/17/23 16:49 Glucose 89 mg/dL (65-115) 09/17/23 16:49 Calculated Osmolality 289 mOsm/kg (285-295) 09/17/23 16:49 Calcium 9.2 mg/dL (8.5-10.5) 09/17/23 16:49 Total Bilirubin 0.2 mg/dL (0.15-1.2) 09/17/23 16:49 AST 20 U/L (0-32) 09/17/23 16:49 ALT 16 U/L (0-33) 09/17/23 16:49 Alkaline Phosphatase 115 U/L (35-105) H 09/17/23 16:49 Total Protein 7.2 g/dL (6.6-8.7) 09/17/23 16:49 Albumin 4.4 g/dL (3.5-5.2) 09/17/23 16:49 Globulin 2.8 g/dL (1.3-4.6) 09/17/23 16:49 Urine Color Dark yellow (Yellow) 09/17/23 18:26 Urine Appearance Hazy (CLEAR) A 09/17/23 18:26 Urine pH 6 (5-7) 09/17/23 18:26 Ur Specific [place] 1.020 (1.005-1.030) 09/17/23 18:26 Urine Protein Neg (Negative) 09/17/23 18:26 Urine Glucose (UA) Norm (Normal) 09/17/23 18:26 Urine Ketones 1+ (Negative) H 09/17/23 18:26 Urine Blood 3+ (Negative) H 09/17/23 18:26 Urine Nitrate Negative (Negative) 09/17/23 18:26 Urine Bilirubin Neg (Negative) 09/17/23 18:26 Urine Urobilinogen Norm mg/dL (Negative) 09/17/23 18:26 Ur Leukocyte Esterase Negative (Negative) 09/17/23 18:26 Urine RBC 10-15 /hpf (0-2) H 09/17/23 18:26 Urine WBC 0-4 /hpf (0-5) H 09/17/23 18:26 Ur Squamous Epith Cells 10-15 /hpf (0-5) H 09/17/23 18:26 Ur Transition Epith Cell 0-4 /hpf 09/17/23 18:26 Calcium Oxalate Crystal 0-4 /hpf H 09/17/23 18:26 Amorphous Sediment Not Reportable 09/17/23 18:26 Urine Bacteria Trace /hpf (NONE) 09/17/23 18:26 Urine Mucus 2+ /hpf 09/17/23 18:26 No radiology studies performed this visit Discharge Plan Discharge Patient Disposition: Home Clinical Impression: Headache Qualifiers: Headache type: unspecified Headache chronicity pattern: acute headache Intractability: intractable Qualified Code(s): R51.9 - Headache, unspecified Condition: Stable Prescriptions: No Action ibuprofen 800 mg tablet 800 mg PO Q8H PRN (Reason: pain) Qty: 60 0RF mirtazapine [Remeron] 15 mg tablet 15 mg PO DAILY alprazolam 2 mg tablet 2 mg PO BID ibuprofen 800 mg tablet 800 mg PO TID Qty: 90 3RF furosemide [Lasix] 20 mg tablet 20 mg PO DAILY Qty: 90 3RF buprenorphine HCl 8 mg tablet, sublingual 8 mg SUBLINGUAL BID duloxetine 60 mg Capsule, Delayed Rel Sprinkle 60 mg PO BID potassium chloride 10 mEq Tablet Extended Release 10 meq PO DAILY aripiprazole 20 mg Tablet 20 mg PO DAILY Discharge Orders: Discharge ED (Routine); Ordered 09/17/23 Ordered By: Bharat Mathur Referrals: Elliott Herrera MD [Primary Care Provider] - Discharge Diet: Usual diet Discharge Activity: Increase activity as tolerated Patient Instructions: Acute Headache (ED) Activity Restrictions/Additional Instructions: Drink plenty water and fluids. Continue with routine medications as directed. Follow-up with primary care for further instructions and evaluation. Return to ED for new concerns. Coding Level of Care Code ED Finance Executive for Karlene Jon
[2023-09-17] MEDS: metoclopramide 5 mg/mL SDV 2 mL IM (19:11)
[2023-09-17] MEDS: ketorolac 30 mg/mL INJ IM (19:11)
[2023-09-17 19:15] LABS: Protein Urine Neg (Negative); Urine Appearance Hazy (CLEAR); Urine Color Dark Yellow (Yellow); pH Urine 6 (5-7)
[2023-09-17 19:16] LABS: Add Urine Microscopic? YES; Bilirubin Urine Neg (Negative); Blood Urine 3+ (Negative); Glucose Urine UA Norm (Normal); Ketones Urine 1+ (Negative); Leukocyte Esterase Urine Negative (Negative); Nitrate Urine Negative (Negative); Urobilinogen Urine Norm (Negative)
[2023-09-17 19:23] LABS: Bacteria Urine TRACE /hpf; Calcium Oxalate Crystals Urine 0-4 /hpf; Mucus Urine 2+ /hpf; Transitional Epi Cells Urine 0-4 /hpf; WBC Urine 0-4 /hpf (0-5)
[2023-09-17 19:24] LABS: Add Urine Culture? Yes
== END 2023-09-17 19:35 | disposition home or self-care (01) ==
PROVIDERS: Emergency Provider Nurse Practitioner Family; PCP Family Medicine
DX: R51.9 Headache, unspecified (principal); F17.290 Nicotine dependence, other tobacco product, uncomplicated
CPT/HCPCS: 80053; 81001; 85025; 87086; 93005; 96372; 99284; J1885; J2765

== ENCOUNTER 2023-11-11 21:20 | Emergency (ER) | payer MEDICARE, MEDICAID, SELFPAY ==
[2023-11-11 21:26] VITALS: BP 121/76; PULSE 91; RESP 18; TEMP 37.3; O2SAT 98
--- NOTE | 2023-11-11 21:35 | W.ED.NECK ---
HPI - Neck Pain/Injury General: Chief Complaint: Neck Pain/Injury Stated Complaint: neck pain Time Seen by Provider: 11/11/23 21:34 Source: patient Mode of arrival: ambulatory Limitations: no limitations History of Present Illness: Patient is a 43-year-old female presents to ED today with complaint of right-sided neck pain. Patient states 4 days ago she had an extensive dental procedure performed where all of her teeth were extracted. This procedure was performed in [place]. She states she was not put under anesthesia for this procedure and everything was done with local anesthetic. Patient states the following day she began noticing pain to the right side of her neck. She states pain seems to radiate into her right shoulder. She reports pain is intermittent and seems to be worse with certain range of motion's of the neck. Patient reports having similar pains on the left side previously. She is not complaining of any headache, fevers, visual changes, neurologic deficits. MD complaint: neck pain Onset (ago): day(s) Place: home Radiation: right lateral Severity: moderate Duration: intermittent Relieving factors: immobilization Exacerbating factors: movement of extremity Associated symptoms: Denies dizziness, headache(s) or nausea Treatments prior to arrival: none Review of Systems Const: Denies: fever(s), chills, body aches, fatigue or malaise ENMT: Reports: dental pain (improving pain); Denies: throat pain, odynophagia, hoarseness, swelling of lips/tongue or oral sores Card: Denies: chest pain Resp: Denies: dyspnea GI: Denies: nausea or vomiting Musc: Reports: neck pain; Denies: back pain, extremity pain, extremity swelling, joint pain or joint swelling Skin/Breast: Denies: rash Neuro: Denies: headache(s), numbness in extremities, weakness in extremities, sensory changes or dizziness PFS ED PFSH: Medical History No pertinent past medical history neghx: htn,dm,thyroid,dvt/pe Arthritis MRSA (methicillin resistant staph aureus) culture positive Hypokalemia Surgical History S/P foot surgery, right (~1998) and right leg, right arm S/P tubal ligation 03/19/2020- bilateral tubal ligation via modified Desirae, performed by Dr. Light at [facility] – [place] Family History Grandmother Breast cancer maternal, DX in her 60's Diabetes maternal Father Colon cancer Sister Clotting disorder Denies family history of Hyperlipidemia Anesthesia complication Bleeding disorder Hypertension Stroke Social History Smoking and tobacco/nicotine status: current every day tobacco/nicotine user (VAPE) Quit status (tobacco/nicotine): has quit using Alcohol intake: never Substance/Drug Use: never Physical Exam Const: COMMON NORMALS: no acute distress, patient oriented x3, no limitations, alert and well nourished GENERAL APPEARANCE: cooperative ORIENTATION/CONSCIOUSNESS: Yes awake, Yes oriented to person, Yes oriented to place and Yes oriented to time HENMT: COMMON NORMALS: normocephalic and atraumatic HEAD & SCALP: normal to inspection, normocephalic and atraumatic FACE & SINUS: normal facial exam and other (very mild bilateral facial swelling consistent with extensive extractions) MOUTH: Normal oral and palatal mucosa present and lip normal TEETH & GINGIVA: Yes dentures (uppers/lowers) THROAT: posterior oropharynx normal and tonsils normal Eye: GENERAL EYE: appearance normal, both eyes and all related structures and normal light reflex DIRECT OPHTHALMOSCOPY: Yes normal light reflex Neck/C-Spine: COMMON NORMALS: no lymphadenopathy and no meningeal signs GENERAL: Yes normal visual inspection, No anterior neck swelling and No submandibular swelling CERVICAL SPINE: Yes pain with cervical ROM, No Cervical spine tenderness, No step off deformity and Yes Trapezius muscle tenderness OTHER: no swelling/edema, redness, warmth, midline pain, crepitus noted NECK IMAGES: 1. TTP over R trapezius musculature Resp: COMMON NORMALS: normal respiratory effort and clear to auscultation bilaterally AUSCULTATION: clear to auscultation bilaterally Cardio: COMMON NORMALS: regular rate and regular rhythm RATE: regular rate RHYTHM: regular rhythm Neuro: MARINE COMA SCALE: document GCS findings [place] coma scale eye opening: Spontaneous [place] coma scale verbal response: Orientated [place] coma scale motor response: Obey commands [place] coma scale total score: 15 COMMON NORMALS: patient oriented x3, CN's II-XII intact bilaterally, moves all extremities, no focal motor deficits and no sensory deficits noted SENSORIUM/ORIENTATION: Yes alert, Yes oriented to person, Yes oriented to place and Yes oriented to time MENINGEAL SIGNS: Yes no meningeal signs Course Vital Signs: Vital signs: Vital Signs Temperature 99.2 F 11/11/23 21:26 Pulse Rate 91 11/11/23 21:26 Respiratory Rate 18 11/11/23 21:26 Blood Pressure 121/76 11/11/23 21:26 Pulse Oximetry 98 11/11/23 21:26 Oxygen Delivery Me thod Room Air 11/11/23 21:26 MDM - Neck Pain/Injury Medical Decision Making At this time I do not have any concern for any type of deep space infection, meningitis, cervical discitis or epidural abscess, cervicocephalic dissection, or other emergent etiology at this time. Symptoms started the day after dental procedure. My suspicion is that symptoms are musculoskeletal most likely related to positioning during her recent lengthy extraction procedure. Conservative therapies discussed. Medical Records I reviewed the patient's medical records. No radiology studies performed this visit Discharge Plan Discharge Patient Disposition: Home Clinical Impression: Neck strain Qualifiers: Encounter type: initial encounter Qualified Code(s): S16.1XXA - Strain of muscle, fascia and tendon at neck level, initial encounter Condition: Stable Prescriptions: No Action ibuprofen 800 mg tablet 800 mg PO Q8H PRN (Reason: pain) Qty: 60 0RF mirtazapine [Remeron] 15 mg tablet 15 mg PO DAILY alprazolam 2 mg tablet 2 mg PO BID ibuprofen 800 mg tablet 800 mg PO TID Qty: 90 3RF furosemide [Lasix] 20 mg tablet 20 mg PO DAILY Qty: 90 3RF buprenorphine HCl 8 mg tablet, sublingual 8 mg SUBLINGUAL BID duloxetine 60 mg Capsule, Delayed Rel Sprinkle 60 mg PO BID potassium chloride 10 mEq Tablet Extended Release 10 meq PO DAILY aripiprazole 20 mg Tablet 20 mg PO DAILY Discharge Orders: Discharge ED (Routine); Ordered 11/11/23 Ordered By: Emily Lopez Referrals: Elliott Herrera MD [Primary Care Provider] - Patient Instructions: Cervical Strain (DC), Neck Pain (ED) Activity Restrictions/Additional Instructions: As we discussed I would like you to alternate ice/heat to your area of discomfort. You may also take [id number] pain medication such as ibuprofen or naproxen to help with inflammation. Please follow-up with your dentist as scheduled. You need to return to the emergency department for any swelling, redness, warmth to the area, fevers greater than 100.4, severe neck pain or stiffness, severe headache, or any other concerns you may have. Coding Level of Care Code ED Signwriter for Karlene Jon
== END 2023-11-11 22:01 | disposition home or self-care (01) ==
PROVIDERS: Emergency Provider Physician Assistant; PCP Family Medicine
DX: S16.1XXA Strain of muscle, fascia and tendon at neck level, initial encounter (principal); F17.290 Nicotine dependence, other tobacco product, uncomplicated; X58.XXXA Exposure to other specified factors, initial encounter
CPT/HCPCS: 99281

== ENCOUNTER → 2024-03-04 14:10 | Outpatient (BNVA) | payer MEDICARE, MEDICAID, SELFPAY | PROVIDERS: PCP Family Medicine; Visit Provider Internal Medicine | DX: R94.31 Abnormal electrocardiogram [ECG] [EKG] (principal); R06.00 Dyspnea, unspecified; R60.9 Edema, unspecified; R07.89 Other chest pain; F17.290 Nicotine dependence, other tobacco product, uncomplicated | CPT/HCPCS: 99214 ==

== ENCOUNTER 2024-05-20 10:56 | Outpatient (CLI) | payer MEDICARE, MEDICAID, SELFPAY ==
[2024-05-20 11:41] LABS: Bilirubin Urine Negative (Negative); Blood Urine Negative (Negative); Glucose Urine UA Negative (Normal); Ketones Urine Negative (Negative); Leukocyte Esterase Urine 2+ (Negative); Nitrate Urine Negative (Negative); Protein Urine Negative (Negative); Specific Gravity, Urine 1.003 (1.005-1.030); Urine Appearance Clear (CLEAR); Urine Color Yellow (Yellow); Urobilinogen Urine 0.2 mg/dL (Negative); pH Urine 6.5 (5-7)
[2024-05-20 11:43] LABS: Bacteria Urine None Seen /hpf; Squamous Epithelial Cell Urine 0-5 /hpf (0-5)
[2024-05-20 12:05] LABS: Add Urine Culture? No
[2024-05-20 12:18] LABS: 25 Hydroxy Vitamin D 50 ng/mL (30-100); Folate Level 17.6 ng/mL (4.8-37.3); Thyroid Stimulating Hormone 3.96 uIU/mL (0.27-4.20); Vitamin B12 1983 pg/mL (232-1245)
[2024-05-21 07:59] LABS: T3 Total 114 ng/dL (76-181)
[2024-05-21 08:35] LABS: T4 Total 7.2 mcg/dL (5.1-11.9)
[2024-05-25 12:33] LABS: Methylmalonic Acid 108 nmol/L (55-335)
[2024-05-26 11:54] LABS: Vitamin B6 Plasma 12.2 ng/mL (2.1-21.7)
== END 2024-05-20 10:57 | disposition home or self-care (01) ==
LOC: LAB 11:03
PROVIDERS: PCP Family Medicine
DX: F33.2 Major depressive disorder, recurrent severe without psychotic features (principal); Z79.899 Other long term (current) drug therapy; G89.4 Chronic pain syndrome; F41.1 Generalized anxiety disorder; F29 Unspecified psychosis not due to a substance or known physiological condition; R41.840 Attention and concentration deficit
CPT/HCPCS: 36415; 81001; 82306; 82607; 82746; 83921; 84207; 84436; 84443; 84480

== ENCOUNTER 2024-08-07 20:32 | Emergency (ER) | payer MEDICARE, MEDICAID, SELFPAY ==
[2024-08-07 20:39] VITALS: BP 120/66; PULSE 78; RESP 16; TEMP 36.6; O2SAT 100; BMI 28.8
[2024-08-07 21:00] LABS: Bilirubin Urine 1+ (Negative); Blood Urine Negative (Negative); Glucose Urine UA Negative (Normal); Ketones Urine Trace (Negative); Leukocyte Esterase Urine Trace (Negative); Nitrate Urine Negative (Negative); Protein Urine Negative (Negative); Urine Appearance Clear (CLEAR); Urine Color Dark Yellow (Yellow)
[2024-08-07 21:08] LABS: Bacteria Urine None Seen /hpf; Hyaline Casts Urine 0-4 /lpf; RBC Urine 0-2 /hpf (0-2); Squamous Epithelial Cell Urine 0-5 /hpf (0-5); WBC Urine 0-5 /hpf (0-5)
--- NOTE | 2024-08-07 21:54 | W.ED.FEMALGU ---
HPI - Female Genitourinary General: Chief complaint: Urogenital-Female Stated complaint: Possible UTI Time Seen by Provider: 08/07/24 21:19 History of Present Illness: This patient is a 44-year-old white female who presents to the ER stating that she has had dysuria for the past 3 days. She has had frequency of urination as well. No fever. No pelvic pain. No vaginal discharge. No suprapubic pain. Related Data Home Medications Medication Instructions Recorded Confirmed duloxetine 60 mg capsule,delayed 60 mg PO BID 11/12/19 03/04/24 release sprinkle buprenorphine HCl 8 mg sublingual 8 mg sublingual BID 04/28/20 03/04/24 tablet mirtazapine 15 mg tablet (Remeron) 15 mg PO DAILY 07/31/21 03/04/24 aripiprazole 20 mg tablet 20 mg PO DAILY 03/11/22 03/04/24 potassium chloride 10 mEq 10 meq PO DAILY 03/11/22 03/04/24 tablet,extended release alprazolam 2 mg tablet 2 mg PO TID 03/04/24 03/04/24 Previous Rx's Medication Instructions Recorded ibuprofen 800 mg tablet 800 mg PO Q8H PRN pain #60 tabs 03/12/21 ibuprofen 800 mg tablet 800 mg PO TID dysmenorrhea #90 tabs 06/02/23 furosemide 20 mg tablet (Lasix) 20 mg PO DAILY #60 tabs 12/10/23 Allergies Allergy/AdvReac Type Severity Reaction Status Date / Time propranolol Allergy ALGY-Hives Verified 03/04/24 14:17 Review of Systems General: Reports: 10 or more systems reviewed and unremarkable except in HPI and below : Reports: dysuria and urinary frequency PFSH ED PFSH: Medical History (Updated 08/07/24 @ 21:53 by Reginaldo Kelly MD) No pertinent past medical history neghx: htn,dm,thyroid,dvt/pe Arthritis MRSA (methicillin resistant staph aureus) culture positive Hypokalemia Surgical History S/P foot surgery, right (~1998) and right leg, right arm S/P tubal ligation 03/19/2020- bilateral tubal ligation via modified Desirae, performed by Dr. Light at [facility] [place] Family History Grandmother Breast cancer maternal, DX in her 60's Diabetes maternal Father Colon cancer Sister Clotting disorder Denies family history of Hyperlipidemia Anesthesia complication Bleeding disorder Hypertension Stroke Social History Smoking and tobacco/nicotine status: current every day tobacco/nicotine user (vape) Quit status (tobacco/nicotine): has quit using Alcohol intake: never Substance/Drug Use: never Physical Exam Const: COMMON NORMALS: no acute distress, patient oriented x3 and no limitations GENERAL APPEARANCE: cooperative and comfortable HENMT: COMMON NORMALS: normocephalic, atraumatic, Normal nasal mucous membranes and turbinates present, moist oral mucous membranes and oropharynx normal HEAD & SCALP: normal to inspection, normocephalic and atraumatic FACE & SINUS: normal facial exam NOSE: Normal nasal mucous membranes and turbinates present Eye: COMMON NORMALS: Equal, round and reactive pupils present, EOMs intact bilaterally and conjunctivae normal GENERAL EYE: appearance normal, both eyes and all related structures CONJUNCTIVA: Yes conjunctivae normal PUPIL: Yes Equal, round and reactive pupils present Neck/C-Spine: COMMON NORMALS: supple and no JVD Chest: COMMONS NORMALS: normal inspection of the chest Resp: COMMON NORMALS: normal respiratory effort and clear to auscultation bilaterally AUSCULTATION: clear to auscultation bilaterally Cardio: COMMON NORMALS: no JVD, regular rate, regular rhythm, No gallops present (Cardio), No murmurs present (Cardio) and No rub (Cardio) RATE: regular rate RHYTHM: regular rhythm GI: COMMON NORMALS: Normal to inspection, nondistended, normoactive bowel sounds present, Soft to palpation and non-tender AUSCULTATION: Yes normoactive bowel sounds PALPATION: Yes Soft to palpation : COMMON NORMALS: Yes no CVA tenderness BLADDER/KIDNEY EXAM: Yes no CVA tenderness Back/Pelvis: COMMON NORMALS: no CVA tenderness and thoracic and lumbar spine normal to inspection Extremity: COMMON NORMALS: normal to inspection Neuro: COMMON NORMALS: patient oriented x3 and CN's II-XII intact bilaterally Psych: COMMON NORMALS: mental status grossly normal, Normal thought process present and cooperative THOUGHT PROCESS: Normal thought process present Skin: COMMON NORMALS: no rashes or lesions noted, turgor normal and no jaundice GENERAL SKIN EXAM: no rashes or lesions noted and turgor normal Course Vital Signs: Vital signs: Vital Signs Temperature 97.9 F 08/07/24 20:39 Pulse Rate 78 08/07/24 20:39 Respiratory Rate 16 08/07/24 20:39 Blood Pressure 120/66 08/07/24 20:39 Pulse Oximetry 100 08/07/24 20:39 Oxygen Delivery Me thod Room Air 08/07/24 20:39 MDM - Female Medical Decision Making Urine analysis was normal. Bladder scan less than 20 cc of urine. Not sure what is causing the patient's dysuria. She does not have a urinary tract infection. Recommended she try some Azo Standard [id number] and follow-up with her primary care physician for further evaluation. She was discharged in stable condition. Lab Data Laboratory Results Urine Color Dark yellow (Yellow) A 08/07/24 20:46 Urine Appearance Clear (CLEAR) 08/07/24 20:46 Urine pH 5.0 (5-7) 08/07/24 20:46 Ur Specific [place] 1.030 (1.005-1.030) 08/07/24 20:46 Urine Protein Negative (Negative) 08/07/24 20:46 Urine Glucose (UA) Negative (Normal) 08/07/24 20:46 Urine Ketones Trace (Negative) 08/07/24 20:46 Urine Blood Negative (Negative) 08/07/24 20:46 Urine Nitrate Negative (Negative) 08/07/24 20:46 Urine Bilirubin 1+ (Negative) H 08/07/24 20:46 Urine Urobilinogen 1.0 mg/dL (Negative) 08/07/24 20:46 Ur Leukocyte Esterase Trace (Negative) A 08/07/24 20:46 Urine RBC 0-2 /hpf (0-2) 08/07/24 20:46 Urine WBC 0-5 /hpf (0-5) 08/07/24 20:46 Ur Squamous Epith Cells 0-5 /hpf (0-5) 08/07/24 20:46 Amorphous Sediment Not Reportable 08/07/24 20:46 Urine Bacteria None seen /hpf (NONE) 08/07/24 20:46 Hyaline Casts 0-4 /lpf H 08/07/24 20:46 No radiology studies performed this visit Discharge Plan Discharge Patient Disposition: Home Clinical Impression: Dysuria Condition: Stable Prescriptions: No Action ibuprofen 800 mg tablet 800 mg PO Q8H PRN (Reason: pain) Qty: 60 0RF mirtazapine [Remeron] 15 mg tablet 15 mg PO DAILY ibuprofen 800 mg tablet 800 mg PO TID Qty: 90 3RF alprazolam 2 mg tablet 2 mg PO TID furosemide [Lasix] 20 mg tablet 20 mg PO DAILY Qty: 60 0RF Rx Instructions: MUST MAKE APPOINTMENT AND BE SEEN FOR FURTHER REFILLS buprenorphine HCl 8 mg tablet, sublingual 8 mg SUBLINGUAL BID duloxetine 60 mg Capsule, Delayed Rel Sprinkle 60 mg PO BID potassium chloride 10 mEq Tablet Extended Release 10 meq PO DAILY aripiprazole 20 mg Tablet 20 mg PO DAILY Discharge Orders: Discharge ED (Routine); Ordered 08/07/24 Ordered By: Reginaldo Kelly Referrals: Elliott Herrera MD [Primary Care Provider] - Patient Instructions: Dysuria - Female Coding Level of Care Code ED Stable Cleaner for Karlene Jon
[2024-08-07 22:15] VITALS: BP 117/75; PULSE 82; RESP 17; O2SAT 98
== END 2024-08-07 22:30 | disposition home or self-care (01) ==
PROVIDERS: Emergency Provider Emergency Medicine; PCP Family Medicine
DX: R30.0 Dysuria (principal); F17.290 Nicotine dependence, other tobacco product, uncomplicated
CPT/HCPCS: 51798; 81001; 99283

== ENCOUNTER 2025-02-23 08:40 | Outpatient (CLI) | payer MEDICARE, MEDICAID, SELFPAY ==
--- NOTE | 2025-02-23 08:46 | MM_ITS ---
WS: [id number] BILATERAL SCREENING DIGITAL TOMOSYNTHESIS MAMMOGRAM WITH CAD HISTORY: SCREENING COMPARISON: None available. Bilateral CC and MLO views with tomosynthesis and synthetic mammography submitted. Computer aided detection analyzed. Breast composition: The breasts are heterogeneously dense, which may obscure small masses. No suspicious masses, microcalcifications or architectural distortion. Benign cluster of calcifications in the medial RIGHT breast. MM/MM scr BI tomosynthesis [id number] IMPRESSION: BI-RADS: 2 - Benign FOLLOW UP: 1 Year Follow-up
== END 2025-02-23 08:41 | disposition home or self-care (01) ==
PROVIDERS: PCP Family Medicine; Visit Provider Family Medicine
DX: Z12.31 Encounter for screening mammogram for malignant neoplasm of breast (principal); R92.333 Mammographic heterogeneous density, bilateral breasts; R92.1 Mammographic calcification found on diagnostic imaging of breast
CPT/HCPCS: 77063; 77067

== ENCOUNTER → 2025-03-28 14:18 | Outpatient (BNVA) | payer MEDICARE, MEDICAID, SELFPAY | PROVIDERS: PCP Family Medicine; Visit Provider Internal Medicine | DX: R07.9 Chest pain, unspecified (principal); R06.09 Other forms of dyspnea; R94.31 Abnormal electrocardiogram [ECG] [EKG]; F17.290 Nicotine dependence, other tobacco product, uncomplicated; I07.1 Rheumatic tricuspid insufficiency | CPT/HCPCS: 99214 ==

== ENCOUNTER 2025-05-05 06:09 | Outpatient (CLI) | payer MEDICARE, MEDICAID, SELFPAY ==
--- NOTE | 2025-05-05 07:00 | USCV_ITS ---
Brittani Carballo Age: 44 Gender: F : 1980 Exam Date: 05/05/2025 06:53 Ordering Phys: Robel Owens M.D ([email or web address]) Technologist: [place] [facility] [place]: sob cp BP: 130 / 80 HR: 59 Rhythm: Sinus Technical Quality: Adequate MEASUREMENTS (Male / Female) Normal Values 2D ECHO LV Diastolic Diameter PLAX 4.8 cm 4.2 - 5.9 / 3.9 - 5.3 cm IVS Diastolic Thickness 1.1 cm 0.6 - 1.0 / 0.6 - 0.9 cm IVS Systolic Thickness 1.3 cm LVPW Diastolic Thickness 1.1 cm 0.6 - 1.0 / 0.6 - 0.9 cm LVPW Systolic Thickness 1.6 cm LVOT Diameter 2.0 cm LV Ejection Fraction 2D Teich 58.9 % LV Ejection Fraction MOD 4C 66.5 % LV Ejection Fraction MOD 2C 66.9 % LV Ejection Fraction 2C AL 69.0 % LA Diameter 3.5 cm RA Systolic Volume 4C AL 40.6 ml RA Systolic Volume 4C MOD 38.9 ml Aorta at Sinotubular Diameter 2.4 cm IVC Diameter 1.4 cm M-MODE LA Ao Ratio MM 1.4 AV Cusp Separation MM 2.3 cm DOPPLER AV Peak Velocity 116.0 cm/s LVOT Peak Velocity 103.0 cm/s AV Area Cont Eq vti 3.0 cm squared AV Area Cont Eq pk 2.9 cm squared MV Peak Velocity 122.0 cm/s MV Area PHT 4.2 cm squared Mitral E to A Ratio 1.4 TR Peak Velocity 256.0 cm/s TR Peak Gradient 26.2 mmHg TV Peak E Velocity 117.0 cm/s PV Peak Velocity 101.0 cm/s FINDINGS Left Ventricle Left ventricle is normal in size. LV systolic function is normal with EF of 60- 65%. No regional wall motion abnormalities are seen. Right Ventricle Normal in size and function Right Atrium Normal in size Left Atrium Normal in size Mitral Valve Structurally normal mitral valve. Mild mitral regurgitation Aortic Valve Structurally normal aortic valve. No significant stenosis or regurgitation. Tricuspid Valve Mild tricuspid regurgitation. Pulmonary artery systolic pressure is normal Pulmonic Valve Not well visualized Pericardium Normal Aorta Normal in size IVC Appears to be normal CONCLUSIONS LV systolic function is normal with EF of 60-65% Mild mitral regurgitation Mild tricuspid regurgitation. Robel Owens MD (Electronically Signed) Final Date: 06 May 2025 10:35 S
== END 2025-05-05 06:10 | disposition home or self-care (01) ==
LOC: RAD 06:10
PROVIDERS: PCP Family Medicine; Visit Provider Internal Medicine
DX: I07.1 Rheumatic tricuspid insufficiency (principal); I34.0 Nonrheumatic mitral (valve) insufficiency
CPT/HCPCS: 93306